=== PATIENT | male | born 1930 | race Caucasian/White ===

== ENCOUNTER → 2016-08-03 | Outpatient (CLI) | payer MEDICARE ==
[~2016-08-03] MED LIST: ASPI81CH CHEW; Aspirin Chew PO; BUME1TAB26 PO; CEPH500C3 PO; CHLO50TA PO; CIPR250T52 PO; CRANCAP7 PO; CYAN100017 PO; D31000CA PO; DOCU1CAP39 PO; FURO40TA PO; LUTE1CAP PO; METO25TA3 PO; PERC5TAB12 PO; POTA-163 PO; POTA-243 PO; POTA10CA PO; RIVA20 PO; TAMS0.4C4 PO; TAMS0.4C67 PO; THERM PO; VITA100021 SL; VITA100064 PO; XARE15TA PO
[2016-08-03 15:57] LABS: BICARBONATE 29.8 MEQ/L (21.0-32.0)
== END ==
LOC: CLAB 15:09
PROVIDERS: ATTEND Family Medicine
DX: E87.5 Hyperkalemia (principal)
CPT/HCPCS: 36415; 80048

== ENCOUNTER 2016-08-27 07:20 | Day surgery (SDC) | payer MEDICARE ==
[~2016-08-27] VITALS: Ht 180.3 cm; Wt 95.1 kg
[~2016-08-27 07:20] MED LIST changes: -ASPI81CH CHEW; -Aspirin Chew PO; -BUME1TAB26 PO; -CIPR250T52 PO; -DOCU1CAP39 PO; -FURO40TA PO; -METO25TA3 PO; -POTA-163 PO; -POTA10CA PO; -TAMS0.4C4 PO; -THERM PO; -VITA100021 SL; -VITA100064 PO; -XARE15TA PO
[2016-08-27] MEDS ORDERED: SODIUM CHLOR 0.9% 1000 ML INJ 1,000 ML IV SCH (08:00)
[2016-08-27 08:04] VITALS: BP 150/83; PULSE 102; RESP 18; TEMP 98.7; O2SAT 97
[2016-08-27] MEDS ORDERED: VITA100021 SL (08:07)
[2016-08-27] MEDS ORDERED: VITA100064 PO (08:07)
[2016-08-27] MEDS ORDERED: POTA10CA PO (08:07)
[2016-08-27] MEDS ORDERED: TAMS0.4C4 PO (08:07)
[2016-08-27] MEDS ORDERED: XARE15TA PO (08:07)
[2016-08-27] MEDS ORDERED: FURO40TA PO (08:07)
[2016-08-27 08:08] LABS: AUTOMATED NEUTROPHIL # 3.3 TH/MM3 (1.8-7.7); BASOPHIL % 0.2 % (0.0-2.0); EOSINOPHIL # 0.2 TH/MM3 (0-0.4); HEMATOCRIT 39.5 % (39.0-51.0); LYMPH % 52.7 % (9.0-44.0); LYMPHOCYTE # 4.3 TH/MM3 (1.0-4.8); MEAN CELL VOLUME 86.1 FL (80.0-100.0); MEAN CORPUSCULAR HEMOGLOBIN 30.4 PG (27.0-34.0); MEAN CORPUSCULAR HGB CONC 35.3 % (32.0-36.0); MONO % 4.7 % (0.0-8.0); NEUT % 40.4 % (16.0-70.0); PLATELET COUNT 126 TH/MM3 (150-450); RED BLOOD COUNT 4.58 MIL/MM3 (4.50-5.90); WHITE BLOOD COUNT 8.1 TH/MM3 (4.0-11.0)
[2016-08-27 08:09] LABS: HEMO FLAGS AUTO DIFF
[2016-08-27 08:15] LABS: PROTHROMBIN TIME - PATIENT 10.8 SEC (9.8-11.6)
[2016-08-27 08:24] LABS: BICARBONATE 30.7 MEQ/L (21.0-32.0); POTASSIUM 3.6 MEQ/L (3.5-5.1)
[2016-08-27 08:51] LABS: PLATELET ESTIMATE SMEAR LOW (NORMAL); PLATELET MORPHOLOGY NORMAL (NORMAL); SCAN/DIFF AUTO DIFF CONFIRMED
[2016-08-27] MEDS ORDERED: HEPARIN SODIUM - IV 10,000 UNITS/10 ML VIAL ONE (10:09)
[2016-08-27] MEDS ORDERED: HEPARIN-NS/PF INJ 500 ML ONE (10:09)
[2016-08-27] MEDS ORDERED: MIDAZOLAM HCL 2 MG/2 ML VIAL ONE (10:09)
[2016-08-27] MEDS ORDERED: VERAPAMIL HCL 5 MG/2 ML VIAL ONE (10:19)
[2016-08-27] MEDS ORDERED: NITROGLYCERIN INJ 5 ML ONE (10:19)
[2016-08-27] MEDS ORDERED: ADENOSINE STRESS TEST INJ 90 MG/30 ML VIAL ONE (11:30)
[2016-08-27] MEDS ORDERED: SODIUM CHLOR 0.9% 250 ML INJ 250 ML IV PRN (12:30)
[2016-08-27] MEDS ORDERED: ONDANSETRON HCL 4 MG/2 ML VIAL IV PRN (12:30)
[2016-08-27] MEDS ORDERED: SODIUM CHLORIDE 0.9% FLUSH 5 ML FLUSH IVF PRN ×2 (12:30)
[2016-08-27] MEDS ORDERED: MISC INFORMATION XX ONE ×2 (12:30)
[2016-08-27] MEDS ORDERED: ATROPINE SULFATE 1 MG/ML VIAL IV PRN (12:30)
[2016-08-27] MEDS ORDERED: IOHEXOL 350 MG/ML 50 ML BTL (for Cath Lab) OTHER ONE (12:52)
[2016-08-27] MEDS ORDERED: IOHEXOL 350 MG/ML 100 ML BTL (for Cath Lab) OTHER ONE (12:52)
[2016-08-27] MEDS ORDERED: hydrALAZINE HCL 20 MG/ML VIAL ONE (14:06)
--- NOTE | 2016-08-27 15:50 | MB ---
cc: TIERRA FRENCH DATE OF CONSULTATION: 08/27/2016 DATE OF : 1930 HISTORY OF PRESENT ILLNESS An 85-year-old male. Primary care physician Dr. Greenfield and productivity engineer Dr. Burrell. He has a history of aortic regurgitation and aortic stenosis. He has been having shortness of breath with exertion for the past one month, started retaining some fluid and having some lower extremity edema and worsening dyspnea. Denied having any chest pain. No palpitations. No syncope. No presyncope. He underwent an echocardiogram which showed a valve area 0.82, peak gradient of 52, EF 55%. He underwent cardiac cath today by Dr. Soto which showed 30% left main, 30% proximal LAD, 50% mid distal LAD, diagonal 10%, circumflex 10%, OM 70%, RCA 20%. RA pressure 12, RV pressure 29/8. PA pressure 25/17 with a wedge of 17. We were consulted to evaluate for aortic valve replacement. PAST MEDICAL HISTORY 1. Aortic regurgitation. 2. Aortic stenosis. 3. Atrial flutter. 4. History of AV block complete in 2013. 5. The patient had a biventricular ICD placed in 2013. 6. Chronic kidney disease, stage III. 7. Hypertension. 8. Paroxysmal SVT. 9. Benign prostatic hypertrophy. PAST SURGICAL HISTORY 1. Ablation of atrial flutter. 2. Cataract surgery. 3. Pacer in situ 2013. 4. Left shoulder repair. ALLERGIES No known allergies. MEDICATIONS Home meds include: 1. Lasix 40 mg daily. 2. Potassium 10 mEq daily. 3. Flomax. 4. Xarelto 15 mg p.o. daily. REVIEW OF SYSTEMS GENERAL: In general no night sweats, fever, heat or cold intolerance. SKIN: No psoriasis, itching or hives. HEENT: No blurred vision or hearing loss. RESPIRATORY: Positive for shortness of breath, occasional cough. CARDIOVASCULAR: As above in the HPI. GASTROINTESTINAL: No diarrhea or vomiting. GENITOURINARY: No burning, frequency, urgency. SHEARER HELPER: No history of TIA, CVA, seizure disorder. ENDOCRINE: No diabetes and/or hypothyroidism. PHYSICAL EXAMINATION VITAL SIGNS: Blood pressure 150/83, heart rate 100, afebrile. GENERAL: The patient is awake, alert, in no acute distress. HEENT: Head is normocephalic, atraumatic. Pupils equal and reactive. Oral mucosa is pink and moist. NECK: Supple. No JVD. HEART: Heart sounds S1, S2, grade 3/6 systolic murmur best noted at the left sternal border. LUNGS: Clear to auscultation. No wheezes, rales or rhonchi. ABDOMEN: Obese, soft, nontender. No masses or organomegaly. EXTREMITIES: Trace edema. LABORATORY DATA Hemoglobin 13, hematocrit 39, white cell count 8.1, platelet count 126. Sodium 141, potassium 3.6, BUN 21, creatinine 1.54. INR is 1.0. EKG DATA EKG is 100% V-paced. IMPRESSION This is an 85-year-old male with a history of aortic regurgitation, aortic stenosis, with symptoms including severe dyspnea with aortic valve area of 1.29. At this time the cath films have been reviewed by Dr. Tierra French. PLAN The plan will be for mini aortic valve replacement, right thoracotomy approach on Thursday September 01, 2016. The procedures, alternatives and risks have been discussed with the patient. He is agreeable to proceed. Further testing to be done including soft tissue arterial ultrasound of the left groin for possible cannulation and carotid ultrasound. Dictated by: MORGAN Johnson-Di MD CIERA Edwards/HUNG /3:19 PM /3:48 PM
--- NOTE | 2016-08-27 15:58 | RADRPT ---
EXAM DATE/TIME: 08/27/2016 15:09 [facility] COMPARISON: No previous studies available for comparison. INDICATIONS : Pre op surgery. MEDICAL HISTORY : Renal calculi. Hypertension. Hearing loss. Irregular heartbeat. Enlarged pros cohen. Measles. SURGICAL HISTORY : Pacemaker. Bilateral cataract removal. ENCOUNTER: Initial ACUITY: 1 day PAIN SCORE: 0/10 LOCATION: Bilateral neck PEAK SYSTOLIC VELOCITIES (cm/sec): ICA/CCA RATIO: Right: 1.2 Left: 0.8 ICA: Right: 119 Left: 92 CCA: Right: 96 Left: 119 ECA: Right: 159 Left: 89 VERTEBRAL: Right: 51 antegrade Left: 66 antegrade Elevated flow velocities and ICA/CCA ratios have been found to correlate with increased degrees of vessel stenosis, calculated as percentage of diameter relative to a normal segment of distal ICA/CCA FINDINGS: RIGHT CAROTID: No significant stenosis is visualized. The waveforms are within normal limits. LEFT CAROTID: No significant stenosis is visualized. The waveforms are within normal limits. VERTEBRAL ARTERIES: Antegrade flow is seen in both vertebral arteries. MISCELLANEOUS: None. CONCLUSION: Negative for hemodynamically significant stenosis. Marky Cutler MD FACR on August 27, 2016 at 15:55 Board Certified Radiologist. This report was verified electronically.
[2016-08-27 17:29] LABS: BLOOD, URINE NEG (NEG); GLUCOSE,URINE NEG (NEG); KETONE, URINE NEG (NEG); NITRITE,URINE NEG (NEG); URINE COLOR LIGHT-YELLOW (YELLW/STRAW)
[2016-08-27 17:33] LABS: COMMENT (UR) CULT NOT INDICATED; CULTURE IF INDICATED CULT NOT INDICATED
--- NOTE | 2016-08-27 17:53 | RADRPT ---
EXAM DATE/TIME: 08/27/2016 14:47 [place] Corrected on: September 01, 2016; Corrected header [facility] COMPARISON: No previous studies available for comparison. INDICATIONS : Pre op surgery. MEDICAL HISTORY : Renal calculi. Hypertension. Hearing loss. Irregular heartbeat. Enlarged pros cohen. Measles. SURGICAL HISTORY : Pacemaker. Left shoulder surgery. Bilateral cataract removal. ENCOUNTER: Initial ACUITY: 1 day PAIN SCORE: 0/10 LOCATION: Left leg. Peak Systolic Velocities: cm/sec External Iliac Artery Left 119 Triphasic FOOD TECHNOLOGY TEACHER Left 115 Triphasic Proximal SFA Left 109 Triphasic Mid SFA Left 94 Triphasic Distal SFA Left 145 Triphasic Profunda Femoral Artery Left 81 Triphasic Popliteal Artery Left 99 Triphasic FINDINGS: Ultrasound was performed to evaluate the common femoral artery on the left prior to cannulization. Common femoral artery on the left measures 1 cm. there is good arterial flow in this vessel. Distal arterial flow is intact. CONCLUSION: 1 cm left common femoral artery with good flow. Marky Cutler MD FACR on August 27, 2016 at 17:48 Board Certified Radiologist. Board Certified Radiologist. This report was verified electronically.
--- NOTE | 2016-08-27 20:55 | RADRPT ---
EXAM DATE/TIME: 08/27/2016 20:16 [facility] COMPARISON: No previous studies available for comparison. INDICATIONS : Status-post cardiac catheterization. RADIATION DOSE: 9.18 CTDIvol (mGy) MEDICAL HISTORY : Hypertension. SURGICAL HISTORY : Pacemaker. ENCOUNTER: Initial ACUITY: 1 day PAIN SCALE: 0/10 LOCATION: chest TECHNIQUE: Volumetric scanning of the chest was performed. Using automated exposure control and adjustment of t he mA and/or kV according to patient size, radiation dose was kept as low as reasonably achievable to obtain optimal diagnostic quality images. FINDINGS: LUNGS: There is no consolidation or pneumothorax. No concerning pulmonary nodule is visualized. PLEURAE: There is no pleural thickening or pleural effusion. MEDIASTINUM: The heart and great vessels demonstrate no acute abnormality. There is no mediastinal or hilar lymph adenopathy. Calcified aortic valve is noted. There is no evidence of pericardial effusion. Pacemaker is noted in place. AXILLAE: Within normal limits. No lymphadenopathy. MUSCULOSKELETAL: Within normal limits for patient age. MISCELLANEOUS: The visualized upper abdominal organs demonstrate no acute abnormality. CONCLUSION: No evidence of acute process. Calcific aortic valvular disease. Pacemaker in place. Cole Webber MD on August 27, 2016 at 20:51 Board Certified Radiologist. This report was verified electronically.
[2016-08-27] MEDS ORDERED: SODIUM CHLORIDE 0.9% FLUSH 5 ML FLUSH IVF SCH ×2 (21:00)
--- NOTE | 2016-08-27 22:49 | EKG ---
Date Performed: 08/27/2016 Time Performed: 08:17:16 PTAGE: 85 years EKG: Demand pacing Pacemaker rhythm - no further analysis Abnormal ECG PREVIOUS TRACING : 05/16/2014 07.18 DOCTOR: Jyoti Cruz Interpretating Date/Time 08/27/2016 22:48:43
--- NOTE | 2016-08-29 14:26 | MA ---
cc: DAVIDSON MURRAY DO DATE: August 27, 2016 PROCEDURE Left heart catheterization, right heart catheterization, coronary angiogram, ultrasound-guided venous access, IVUS left main. PREPROCEDURE DIAGNOSIS Moderate to severe aortic stenosis, shortness of breath consistent with severe aortic stenosis. POSTPROCEDURE DIAGNOSIS Severe aortic stenosis, moderate coronary artery disease. MEDICATIONS Fentanyl 25 mcg, Versed 1/2 mg, Verapamil 2.5 mg, Nitro 200 mcg, heparin 8000 units. CONTRAST USED 110 ccs. FLUOROSCOPY 22.4 minutes. SEDATION Moderate sedation x 60 minutes. ESTIMATED BLOOD LOSS 10 ccs. PROCEDURAL SUMMARY Gordon Abdi is a pleasant 85-year-old male who originally presented with increasing shortness of breath. Echocardiogram was done showing moderate to severe aortic stenosis. Because of this and consideration of possible AVR, it was felt that he needed to undergo coronary angiogram. Risks, benefits and alternatives were explained to him and his and they understood and consented. He was brought to the lab and prepped in the usual sterile fashion. Right radial artery was accessed using a modified Seldinger technique and placement of a 5/6 slender sheath. Right brachial vein was accessed using a modified Seldinger technique with ultrasound guidance and placement of a 5/6 slender sheath. Both sheaths were aspirated and flushed with these. Dewitt-Josh catheter was then placed through the venous sheath and taken to a wedge position. Pressures and oxygen saturations were measured in the usual fashion and with pressures listed below. Dewitt-Josh catheter was then removed. A JR-4 was advanced over a J-wire to the mid forearm. During this because of tortuosity we are unable to advance further. A Glidewire was used to advance the catheter to the ascending aortic root but due to tortuosity throughout the brachiocephalic artery and aortic arch, I was unable to torque the catheter to engage the coronary arteries. Because of this I felt that we should abandon the radial approach and opt for the femoral approach. JR-4 was then removed. Right femoral artery was accessed using a modified Seldinger technique. Right femoral arteriography shows a normal-appearing femoral artery with mild calcification. The JR-4 was then advanced over a J-wire to the ascending aorta. This was used for selective angiography of the right coronary artery which shows mild tortuosity and a 20% mid lesion. PDA appears to have a 40% ostial lesion. At that point I attempted with a JR-4 to cross the aortic valve with a J-wire but was unable to. This was then exchanged for a straight wire but this also was not able to cross the aortic valve. JR-4 was then exchanged for a JL-4 for selective angiography of the left coronary system. Left main does have mild disease in the proximal portion with a 20-30% lesion. The distal portion of the left main in one view does look close to 50% with calcification. Left main bifurcates into an LAD and left circumflex. The LAD has mild disease throughout with a 40-50% lesion in the midportion. It does give off one major diagonal. The left circumflex is a relatively normal-appearing vessel and gives off two major obtuse marginals. The second obtuse marginal which is a large vessel does have a 70% lesion after a bifurcation into an upper and lower branch. JL-4 was then exchanged for an AL-1. I attempted to cross the aortic valve with a straight wire but was unable to. This was then removed and a Glidewire was placed which was able to cross the aortic valve. The AL-1 catheter was then advanced into the left ventricular cavity. A long J-wire was then placed into the LV and the AL-1 was removed. A Celso dual lumen catheter was then advanced into the left ventricle. Both lumens were aspirated and flushed. Pressures from the left ventricle simultaneous with aorta were measured with hemodynamics below. This was then pulled back across the aortic valve to show that the pressures equalized. Celso catheter was then exchanged for an EBU 3.5 guide catheter. This was used to engage the left main as there was concern for distal left main disease. The patient was given heparin for anticoagulation. A BMW wire was advanced into the distal LAD. IVUS catheter was then taken into the proximal part of the LAD and pullback with recording. The minimal luminal area for the left main was found to be 8 mm squared. IVUS catheter was then removed. BMW wire was removed. One final shot of the left coronary system was taken to show no disruption of the vessel. EBU catheter was then removed over a J-wire. Right femoral sheath was sutured in with a plan to remove after ACTs were at appropriate level. TR band was placed over the radial arteriotomy site with removal of the sheath and hemostasis obtained. The patient left the laboratory tech cardiovascularly stable. HEMODYNAMICS Right atrium 12. Right ventricle 29/8, RVEDP 12. PA 25/17, mean 20. Wedge 17. LV 177/14, LVEDP 19. AO 155/56. Aortic valve mean gradient 39.35. The aortic valve area 1.29. Aortic valve index 0.60. IMPRESSION 1. Severe aortic stenosis by cardiac catheterization (mean gradient 40, aortic valve area of 1.2, aortic valve index 0.60). 2. Moderate coronary artery disease as above. RECOMMENDATIONS 1. Mr. Abdi presented to the office with symptoms concerning for progression of his aortic stenosis. He does appear to have severe aortic stenosis by cardiac catheterization with a mean gradient of 40. 2. I discussed this with Dr. French and he will see him in consultation for consideration of AVR. 3. It does not appear that he has significant coronary artery disease that needs to be bypassed during the procedure. 4. Further recommendations will be made after consultation with CT surgery. Thank you for allowing me to see Gordon Abdi, if there are any questions please do not hesitate to call. Davidson Murray DO VGP/TLL /12:28 PM /2:02 PM
--- NOTE | 2016-08-31 10:31 | RSPPFT ---
DATE OF PROCEDURE: 08/27/16 COMMENTS: Spirometry with FVC of 1.9 predicted 3.8, FEV1 of 1.5 predicted 2.9, FEV1/FVC ratio at 77% predicted 76%. IMPRESSION: On the basis of the above, patient has a restrictive lung defect. Lung volumes would be necessary for further clarification if clinically indicated.
--- NOTE | 2016-09-06 14:12 | RADRPT ---
EXAM DATE/TIME: 08/27/2016 14:47 [place] Corrected on: September 01, 2016; Corrected header [facility] COMPARISON: No previous studies available for comparison. INDICATIONS : Pre op surgery. MEDICAL HISTORY : Renal calculi. Hypertension. Hearing loss. Irregular heartbeat. Enlarged pros cohen. Measles. SURGICAL HISTORY : Pacemaker. Left shoulder surgery. Bilateral cataract removal. ENCOUNTER: Initial ACUITY: 1 day PAIN SCORE: 0/10 LOCATION: Left leg. Peak Systolic Velocities: cm/sec External Iliac Artery Left 119 Triphasic INFORMATION SPECIALIST Left 115 Triphasic Proximal SFA Left 109 Triphasic Mid SFA Left 94 Triphasic Distal SFA Left 145 Triphasic Profunda Femoral Artery Left 81 Triphasic Popliteal Artery Left 99 Triphasic FINDINGS: Ultrasound was performed to evaluate the common femoral artery on the left prior to cannulization. Common femoral artery on the left measures 1 cm. there is good arterial flow in this vessel. Distal arterial flow is intact. CONCLUSION: 1 cm left common femoral artery with good flow. Marky Cutler MD FACR on August 27, 2016 at 17:48 Board Certified Radiologist. Board Certified Radiologist. This report was verified electronically.
== END 2016-08-27 21:10 | disposition home or self-care (01) ==
LOC: HDOC 07:20 → HDIC 07:22 → HDOC 21:10
PROVIDERS: ATTEND Nuclear Medicine Nuclear Cardiology
DX: I35.0 Nonrheumatic aortic (valve) stenosis (principal); I35.1 Nonrheumatic aortic (valve) insufficiency; I48.92 Unspecified atrial flutter; Z95.810 Presence of automatic (implantable) cardiac defibrillator; I12.9 Hypertensive chronic kidney disease with stage 1 through stage 4 chronic kidney disease, or unspecified chronic kidney disease; N18.3 Chronic kidney disease, stage 3 (moderate); I47.1 Supraventricular tachycardia; I25.10 Atherosclerotic heart disease of native coronary artery without angina pectoris
CPT/HCPCS: 71250; 80048; 81001; 82810; 85025; 85347; 85610; 87641; 92978; 93005; 93456; 93880; 93926; 94010; C1751; C1753; C1769; C1893; J0360; J1644; J2250; J3010; 76999; J0153; Q9967

== ENCOUNTER 2016-08-31 11:15 | Inpatient (IN) | payer MEDICARE ==
[~2016-08-31] VITALS: Ht 177.8 cm; Wt 94.7 kg
[~2016-08-31 11:15] MED LIST changes: -CEPH500C3 PO; -CHLO50TA PO; -CRANCAP7 PO; -CYAN100017 PO; -D31000CA PO; +FURO40TA PO; -LUTE1CAP PO; -PERC5TAB12 PO; -POTA-243 PO; +POTA10CA PO; -RIVA20 PO; +TAMS0.4C4 PO; -TAMS0.4C67 PO; +VITA100021 SL; +VITA100064 PO; +XARE15TA PO
[2016-09-01] MEDS ORDERED: CEFAZOLIN 500 MG in NS IRR BTL 500 ML IRRIGATION SCH (06:15)
[2016-09-01] MEDS ORDERED: CHLORHEXIDINE GLUCONATE 4% SOLN 120 ML BTL TOPICAL SCH (06:15)
[2016-09-01] MEDS ORDERED: SODIUM CHLORIDE 0.9% FLUSH 5 ML FLUSH IV FLUSH PRN (06:15)
[2016-09-01] MEDS ORDERED: ceFAZolin 2 GM PREMIX 50 ML IV SCH (06:15)
[2016-09-01] MEDS ORDERED: METOPROLOL TARTRATE 25 MG TAB PO SCH (06:15)
[2016-09-01] MEDS ORDERED: INSULIN REGULAR 100 UNITS in NS 100 ML IV SCH (06:15)
[2016-09-01] MEDS ORDERED: LACTATED RINGER'S 1000 ML IV SCH (06:30)
[2016-09-01] MEDS ORDERED: INSULIN HUMAN REGULAR 1,000 UNITS/10 ML VIAL SQ PRN (06:30)
[2016-09-01] MEDS ORDERED: SODIUM CHLORID 0.9% 500 ML IV SCH (06:30)
[2016-09-01] MEDS ORDERED: METOPROLOL TARTRATE 25 MG TAB PO PRN (06:30)
[2016-09-01] MEDS ORDERED: VANCOMYCIN HCL 1000 MG VIAL ONE (06:36)
[2016-09-01] MEDS ORDERED: HEPARIN SODIUM - SQ 10,000 UNITS/ML VIAL ONE (06:36)
[2016-09-01] MEDS ORDERED: methylPREDNISolone SOD SUCC 125 MG/2 ML VIAL ONE (06:37)
[2016-09-01] MEDS ORDERED: POTASSIUM CHLORIDE 20 MEQ/10 ML VIAL ONE (06:39)
[2016-09-01] MEDS ORDERED: CUSTODIOL HTK IRR SOLN 1,000 ML ONE (06:39)
[2016-09-01] MEDS ORDERED: ALBUMIN HUMAN 25% 12.5 GM/50 ML BAGP IV ONE (06:40)
[2016-09-01] MEDS ORDERED: SODIUM BICARBONATE 8.4% INJ 50 ML ONE (06:40)
[2016-09-01] MEDS ORDERED: MANNITOL INJ 50 ML ONE (06:40)
[2016-09-01] MEDS ORDERED: HEPARIN SODIUM - IV 10,000 UNITS/10 ML VIAL ONE (06:41)
[2016-09-01 06:45] VITALS: BP 153/69; PULSE 79; RESP 16; TEMP 97.8; O2SAT 99
[2016-09-01] MEDS ORDERED: SODIUM CHLORIDE 0.9% FLUSH 5 ML FLUSH IV FLUSH SCH (09:00)
== END 2016-09-01 07:35 | disposition home or self-care (01) | DRG 307 ==
LOC: HSDI 09-01 05:50
PROVIDERS: ADMIT Thoracic Surgery (Cardiothoracic Vascular Surgery); ATTEND Thoracic Surgery (Cardiothoracic Vascular Surgery)
DX: I35.0 Nonrheumatic aortic (valve) stenosis (principal); Z53.9 Procedure and treatment not carried out, unspecified reason
CPT/HCPCS: 86850; 86900; 86901; 86920; 99211; G0463; J0690; J1644; J2150; J2930; J3370; J3480; P9047

== ENCOUNTER 2016-09-08 11:08 | Inpatient (IN) | payer MEDICARE ==
[~2016-09-08] VITALS: Ht 177.8 cm; Wt 105.9 kg
[~2016-09-08 11:08] MED LIST changes: -ASPI81CH CHEW; -Aspirin Chew PO; -BUME1TAB26 PO; -CIPR250T52 PO; -DOCU1CAP39 PO; -METO25TA3 PO; -POTA-163 PO; -THERM PO
[2016-09-15] VITALS (13 sets, daily range): BP systolic 98–147; BP diastolic 41–74; PULSE 92–115; RESP 10–16; TEMP 97.5–99.6; O2SAT 95–99
[2016-09-15] MEDS ORDERED: DEXTROSE 5% IN WATER 100ML INJ 100 ML IV ONE (05:00)
[2016-09-15] MEDS ORDERED: HEPARIN SODIUM - SQ 10,000 UNITS/ML VIAL SQ ONE (05:00)
[2016-09-15] MEDS ORDERED: AMIODARONE HCL 150 MG/3 ML VIAL IV ONE (05:00)
[2016-09-15] MEDS ORDERED: PHENYLEPHRINE HCL 10 MG/ML VIAL IV ONE (05:00)
[2016-09-15] MEDS ORDERED: LABETALOL HCL 100 MG/20 ML VIAL IV ONE (05:00)
[2016-09-15] MEDS ORDERED: GLYCOPYRROLATE 0.2 MG/ML VIAL IV ONE (05:00)
[2016-09-15] MEDS ORDERED: PROTAMINE SULFATE 250 MG/25 ML VIAL IV ONE (05:00)
[2016-09-15] MEDS ORDERED: VECURONIUM BROMIDE 10 MG VIAL IV ONE (05:00)
[2016-09-15] MEDS ORDERED: NOREPINEPHRINE 4 MG/4 ML AMP IV ONE (05:00)
[2016-09-15] MEDS ORDERED: ceFAZolin INJ 1,000 MG VIAL IV ONE ×2 (05:00→12:20)
[2016-09-15] MEDS ORDERED: MAGNESIUM SULFATE 1000 MG/2 ML VIAL (PED) IV ONE (05:00)
[2016-09-15] MEDS ORDERED: CALCIUM CHLORIDE 10% SOLN 1 GRAM/10 ML SYR IV ONE (05:00)
[2016-09-15] MEDS ORDERED: AMINOCAPROIC ACID INJ 250 MG/ML 20 ML VIAL IV ONE (05:00)
[2016-09-15] MEDS ORDERED: ARTIFICIAL TEARS OPTH OINT 3.5 APPLIC/3.5 GM TUBO ONE (05:00)
[2016-09-15] MEDS ORDERED: SODIUM BICARBONATE 8.4% INJ 50 MEQ/50 ML SYR IV ONE (05:00)
[2016-09-15] MEDS ORDERED: VASOPRESSIN INJ 20 UNITS/ML VIAL IV ONE (05:00)
[2016-09-15] MEDS ORDERED: INSULIN REGULAR 100 UNITS in NS 100 ML IV SCH (06:15)
[2016-09-15] MEDS ORDERED: SODIUM CHLORIDE 0.9% FLUSH 10 ML FLUSH IV FLUSH PRN ×2 (06:15)
[2016-09-15] MEDS ORDERED: CHLORHEXIDINE GLUCONATE 4% SOLN 120 ML BTL TOPICAL SCH (06:15)
[2016-09-15] MEDS ORDERED: METOPROLOL TARTRATE 25 MG TAB PO PRN (06:30)
[2016-09-15] MEDS ORDERED: INSULIN HUMAN REGULAR 1,000 UNITS/10 ML VIAL SQ PRN (06:30)
[2016-09-15] MEDS ORDERED: SODIUM CHLORID 0.9% 500 ML IV SCH (06:30)
[2016-09-15] MEDS ORDERED: LACTATED RINGER'S 1000 ML IV SCH (06:30)
[2016-09-15] MEDS ORDERED: VANCOMYCIN HCL 1000 MG VIAL ONE (06:33)
[2016-09-15] MEDS ORDERED: HEPARIN SODIUM - SQ 10,000 UNITS/ML VIAL ONE (06:33)
[2016-09-15] MEDS ORDERED: ceFAZolin 2 GM PREMIX 50 ML ONE (06:33)
[2016-09-15] MEDS ORDERED: methylPREDNISolone SOD SUCC 125 MG/2 ML VIAL ONE (06:33)
[2016-09-15] MEDS ORDERED: SODIUM BICARBONATE 8.4% INJ 50 ML ONE (07:07)
[2016-09-15] MEDS ORDERED: CUSTODIOL HTK IRR SOLN 1,000 ML ONE (07:07)
[2016-09-15] MEDS ORDERED: HEPARIN SODIUM - IV 10,000 UNITS/10 ML VIAL ONE (07:08)
[2016-09-15] MEDS ORDERED: MANNITOL INJ 50 ML ONE (07:08)
[2016-09-15] MEDS ORDERED: CALCIUM CHLORIDE 10% SOLN 1 GRAM/10 ML SYR ONE (07:09)
[2016-09-15] MEDS ORDERED: POTASSIUM CHLORIDE 20 MEQ/10 ML VIAL ONE (07:09)
[2016-09-15] MEDS ORDERED: ALBUMIN HUMAN 25% 12.5 GM/50 ML BAGP IV ONE (07:10)
[2016-09-15] MEDS ORDERED: BUPIVACAINE HCL PF 0.5% 30 ML VIAL ONE (07:43)
[2016-09-15] MEDS ORDERED: LACTATED RINGER'S 1000 ML INJ 500 ML IV PRN (14:27)
[2016-09-15] MEDS ORDERED: ACETAMINOPHEN 650 MG SUPP RECTAL PRN (14:30)
[2016-09-15] MEDS ORDERED: METOPROLOL TARTRATE 5 MG/5 ML VIAL IV PUSH PRN (14:30)
[2016-09-15] MEDS ORDERED: Post-op Orders (for Pharmacy) MISC OTHER ONE (14:30)
[2016-09-15] MEDS ORDERED: hydrALAZINE HCL 20 MG/ML VIAL IV PRN (14:30)
[2016-09-15] MEDS ORDERED: MAGNESIUM SULFATE INJ 2 GM in SODIUM CHLORIDE 0.9% INJ 100 ML IV PRN ×4 (14:30)
[2016-09-15] MEDS ORDERED: POTASSIUM CHLOR 20 MEQ PREMIX 100 ML IV PRN ×3 (14:30)
[2016-09-15] MEDS ORDERED: CLEVIDIPINE INJ 50 ML IV SCH (14:30)
[2016-09-15] MEDS ORDERED: ACETAMINOPHEN 325 MG TAB PO PRN (14:30)
[2016-09-15] MEDS ORDERED: oxyCODONE/ACETAMINOPHEN 5 MG/325 MG TAB PO PRN (14:30)
[2016-09-15] MEDS ORDERED: DEXTROSE 50% IN WATER 50 ML VIAL(D50) IV PUSH PRN (14:30)
[2016-09-15] MEDS ORDERED: CALCIUM CHLORIDE INJ 1 GM in SODIUM CHLORIDE 0.9% INJ 100 ML IV PRN (14:30)
[2016-09-15] MEDS ORDERED: POTASSIUM CHLORIDE 20 MEQ CONTROLLED RELEASE TAB PO PRN ×2 (14:30)
[2016-09-15] MEDS ORDERED: ONDANSETRON HCL 4 MG/2 ML VIAL IV PUSH PRN (14:30)
[2016-09-15] MEDS ORDERED: CALCIUM CHLORIDE 10% 1 GRAM/10 ML VIAL IV PRN (14:30)
--- NOTE | 2016-09-15 14:47 | PD.OP ---
cc: Tierra French MD; CharlesDavidson Arenas DO Operative Report Date of Surgery: Sep 15, 2016 Preoperative Diagnosis: (1) Aortic stenosis (2) SOB (shortness of breath) on exertion Postoperative Diagnosis: same Procedure: Minimally invasive AVR with a 27 Stark Intuity tissue valve THONY Percutaneous access left femoral artery and vein with Perclose closure Anesthesia: Dr. Le Surgeon: Tierra French Property Management Intern(s): Eitan Alvarado MD Operation and Findings: The risks, benefits, complications, treatment options, and expected outcomes were discussed with the patient. The possibilities of reaction to medication, pulmonary aspiration, perforation of viscus, bleeding, recurrent infection, the need for additional procedures, failure to diagnose a condition, and creating a complication requiring transfusion or operation were discussed with the patient. The patient concurred with the proposed plan, giving informed consent. The site of surgery properly noted/marked. The patient was taken to Operating Room, identified as Gordon Abdi and the procedure verified as Minimally Invasive Aortic Valve Replacement. A Time Out was held and the above information confirmed. Standard monitoring lines and Montoya catheter were placed. General anesthesia was induced. The patient was prepped and draped in a sterile fashion. Percutaneous access of the left femoral artery and vein was performed with ultrasound guidance using 2 Perclose devices for later closure on the artery. A simple horizontal mattress stitch was placed for later vein closure. The patient was heparinized for cardiopulmonary bypass. The left femoral artery was cannulated with a 19 [employer] arterial cannula. The left femoral vein was cannulated with a 21 [employer] cannula under THONY guidance. A 6 cm right anterior thoracotomy was performed and the 3rd rib was shingled. The right internal mammary artery and vein were ligated and divided. An Asif retractor was placed followed by a small chest retractor. The pericardium was opened and a pericardial sling was created using interrupted 0 silk sutures. A small 1 cm incision was made at the 6th intercostal space and an LV vent and pericardial suction were placed through this access port. The aorta was dissected posteriorly for crossclamp placement. Antegrade Custodiol cardioplegia were employed. Additionally, hand-held coronary cardioplegia cannula was used during the procedure. The patient was placed on cardiopulmonary bypass. An aortic cross-clamp was applied and the heart was arrested using cold Custodiol cardioplegia delivered through a 14F catheter. The aorta was opened above the sinotubular ridge and the aortic valve was exposed. The right and left coronary was directly cannulated in addition and cardioplegia was administered. On opening the aorta, the valve appeared calcified and trileaflet. The valve was resected as well as all annular calcification, sized for a 27 Intuity tissue valve which was placed with 2-0 Tycron stay sutures. The valve seated well and was balloon deployed. The three valve sutures were secured with core knot device. The aorta was closed with running 4-0 Prolene suture. The patient systemically Re warmed. The heart was vigorously deaired with a clamp on. The clamp was removed, deairing continued. The patient was easily weaned from cardiopulmonary bypass. Decannulation was carried out without incident and the femoral artery ws closed by securing the Perclose devices. The femoral vein was secured with manual pressure. Protamine was given. There was no adverse reaction. Intraoperative THONY following the procedure showed a well-seated aortic valve with a tiny perivalvular leak and preserved ventricular function. Wound was checked for hemostasis was obtained using electrocautery. The 3rd rib was reapproximated to the sternum and adjacent rib with a 0 Vicryl suture. The fascia and pectoralis were closed with 0 Vicryl. The subcutaneous tissue was closed using a running 3-0 Monocryl suture. The skin was closed with 4-0 Monocryl. The groin was closed in 2 layers. Sterile dressings were placed. At the end of the operation, all sponge, instruments, and needle counts were correct. The patient was transferred to the CVICU in stable condition. Tierra French MD Sep 15, 2016 14:47
[2016-09-15] MEDS ORDERED: MIDAZOLAM HCL 5 MG/5 ML VIAL ONE (14:55)
[2016-09-15] MEDS ORDERED: fentaNYL CITRATE 1000 MCG/20 ML VIAL ONE (14:56)
[2016-09-15] MEDS ORDERED: SODIUM CHLOR 0.9% 250 ML INJ 500 ML IV ONE (15:11)
[2016-09-15] MEDS ORDERED: SODIUM CHLORIDE 0.9% INJ 200 ML IV ONE (15:11)
[2016-09-15] MEDS ORDERED: NORMOSOL R INJ 2,000 ML IV ONE (15:11)
[2016-09-15] MEDS ORDERED: LACTATED RINGER'S 1000 ML INJ 2,000 ML IV ONE (15:11)
[2016-09-15] MEDS ORDERED: SODIUM CHLORID 0.9% 500 ML INJ 500 ML IV ONE (15:11)
--- NOTE | 2016-09-15 15:25 | RADRPT ---
EXAM DATE/TIME: 09/15/2016 14:41 [facility] COMPARISON: CHEST SINGLE AP, May 16, 2014, 10:46. INDICATIONS : Post CABG. MEDICAL HISTORY : Hypertension. SURGICAL HISTORY : Pacemaker. ENCOUNTER: Subsequent ACUITY: 1 day PAIN SCORE: Non-responsive. LOCATION: Bilateral chest FINDINGS: A single view of the chest demonstrates hypoinflation with no acute infiltrate. This appears to be pr ominent but well compensated. Right-sided thoracostomy tube without pneumothorax. Endotracheal tube i s identified above the anastacia. Nasogastric tube traverses the GE junction with the tip in the gastric lumen. Right IJ central venous catheter with tip projecting over the central venous system. Left sub clavian bipolar pacer is radiographically intact. CONCLUSION: 1. Hypoinflation with no acute infiltrate. 2. Right-sided thoracostomy tube without pneumothorax. 3. Endotracheal tube appropriately positioned above the anastacia the nasogastric tube entering the edson aparna lumen. 4. Compensated cardiomegaly. Wesley Dotson MD on September 15, 2016 at 15:21 Board Certified Radiologist. This report was verified electronically.
[2016-09-15] MEDS ORDERED: RESP: ALBUTEROL 2.5 MG/IPRATROPIUM 0.5 MG NEB (PRN) NEB (15:30)
[2016-09-15] MEDS ORDERED: RESP: RACEPINEPHRINE 2.25% 0.5 ML NEB NEB PRN (15:30)
[2016-09-15] MEDS ORDERED: NOREPINEPHRINE-DEXTROSE DRIP 250 ML IV SCH (16:00)
[2016-09-15] MEDS ORDERED: INSULIN REGULAR (IV INFUSION) 100 UNITS in SODIUM CHLORIDE 0.9% INJ 99 ML IV SCH (16:00)
[2016-09-15] MEDS: RESP: ALBUTEROL 2.5 MG/IPRATROPIUM 0.5 MG NEB (SCH) NEB ×2 (16:10→22:54)
[2016-09-15] MEDS: METOCLOPRAMIDE HCL 10 MG/2 ML VIAL IV PUSH SCH ×2 (17:28→21:27)
[2016-09-15] MEDS: ACETAMINOPHEN 1000 MG/100 ML VIAL IV SCH ×2 (17:29→22:27)
[2016-09-15] MEDS: ALBUMIN HUMAN 5% 12.5 GM/250 ML BOTTLE IV PRN ×2 (19:30→23:01)
[2016-09-15] MEDS: TAMSULOSIN HCL 0.4 MG CAP PO SCH (21:27)
[2016-09-16] VITALS (23 sets, daily range): BP systolic 90–151; BP diastolic 45–69; PULSE 58–116; RESP 16–24; TEMP 97.4–99; O2SAT 91–97
[2016-09-16] MEDS: RESP: ALBUTEROL 2.5 MG/IPRATROPIUM 0.5 MG NEB (SCH) NEB ×4 (03:54→19:03)
[2016-09-16] MEDS: ACETAMINOPHEN 1000 MG/100 ML VIAL IV SCH ×2 (05:01→09:28)
[2016-09-16 05:33] LABS: HEMATOCRIT 30.4 % (39.0-51.0); MEAN CELL VOLUME 86.9 FL (80.0-100.0); MEAN CORPUSCULAR HEMOGLOBIN 30.4 PG (27.0-34.0); PLATELET COUNT 76 TH/MM3 (150-450); RED CELL DISTRIBUTION WIDTH 14.1 % (11.6-17.2); WHITE BLOOD COUNT 17.9 TH/MM3 (4.0-11.0)
[2016-09-16 05:43] LABS: BICARBONATE 22.4 MEQ/L (21.0-32.0); MAGNESIUM 2.2 MG/DL (1.5-2.5); POTASSIUM 4.1 MEQ/L (3.5-5.1)
[2016-09-16 06:09] LABS: REVIEW FLAG FINAL
--- NOTE | 2016-09-16 06:10 | RADRPT ---
EXAM DATE/TIME: 09/16/2016 05:00 [facility] COMPARISON: CHEST SINGLE AP, September 15, 2016, 14:41. INDICATIONS : Shortness of breath, possible pulmonary disease. MEDICAL HISTORY : Hypertension. SURGICAL HISTORY : Pacemaker. ENCOUNTER: Subsequent ACUITY: 2 days PAIN SCORE: Non-responsive. LOCATION: Bilateral chest FINDINGS: Right jugular line and pacer device again seen. Cardiomegaly and shallow lung volumes. Degenerative c hanges of the spine. Clear lungs. Right-sided chest tube is noted. CONCLUSION: No significant change has occurred. Warren Almanza MD on September 16, 2016 at 6:08 Board Certified Radiologist. This report was verified electronically.
[2016-09-16] MEDS: PANTOPRAZOLE SOD 40 MG DELAYED RELEASE TAB PO SCH (06:38)
[2016-09-16] MEDS: METOCLOPRAMIDE HCL 10 MG/2 ML VIAL IV PUSH SCH (06:44)
[2016-09-16] MEDS: ASPIRIN 81 MG CHEW TAB PO SCH (08:07)
[2016-09-16] MEDS: TAMSULOSIN HCL 0.4 MG CAP PO SCH ×2 (08:07→18:47)
[2016-09-16] MEDS: CHOLECALCIFEROL (VIT D3) 1000 UNIT TAB PO SCH (08:07)
[2016-09-16] MEDS ORDERED: BUMETANIDE INJ 1 MG/4 ML VIAL IV PUSH ONE (08:45)
[2016-09-16] MEDS ORDERED: POTASSIUM CHLORIDE 20 MEQ CONTROLLED RELEASE TAB PO ONE (08:45)
[2016-09-16] MEDS ORDERED: GLUCAGON 1 MG/ML VIAL OTHER PRN (09:00)
[2016-09-16] MEDS ORDERED: METOPROLOL TARTRATE 25 MG TAB PO SCH ×2 (09:00)
[2016-09-16] MEDS ORDERED: BISACODYL 10 MG SUPP RECTAL PRN (09:00)
[2016-09-16] MEDS ORDERED: SOD PHOSPHATE/SOD BIPHOSPHATE (ADULT) ENEMA 133ML RECTAL PRN (09:00)
[2016-09-16] MEDS ORDERED: DEXTROSE 50% IN WATER 50 ML VIAL(D50) IV PRN (09:00)
[2016-09-16] MEDS: MULTIVITAMINS/MINERALS THERAPEUTIC TAB PO SCH (09:26)
[2016-09-16] MEDS: DOCUSATE SODIUM 100 MG CAP PO SCH ×2 (09:27→21:55)
[2016-09-16] MEDS: MAGNESIUM HYDROXIDE SUSP 30 ML CUP PO SCH (09:27)
[2016-09-16] MEDS: METOCLOPRAMIDE HCL 10 MG/2 ML VIAL IV SCH ×3 (09:27→21:53)
[2016-09-16] MEDS: INSULIN ASPART SUPPLEMENTAL SCALE SQ SCH ×4 (09:34→21:57)
[2016-09-16] MEDS ORDERED: PILL SPLITTER OTHER PRN (09:45)
--- NOTE | 2016-09-16 09:46 | PD.CAR.PN ---
CVT Progress Note CVT: POD #: 1 Subjective/Hospital Course: 86/ male HX of aortic stenosis, increasing SOB x one month lower ext edema , underwent cardiac cath by Dr Soto / found to have vlave area 0.82/ peak gradient 52/ EF 55% , mild CAD PMH: AI/ / aflutter on xarelto at home , BV ICD, CKD stage 111, HTN BPH surgery: 09/15 Minimally invasive AVR with a 27 Stark Intuity tissue valve THONY, Percutaneous access left femoral artery and vein with Perclose closure 09/16 +9 kg , 3000 crystalloid, 2 units PRBC, 500 cellsaver up in chair, still SOB with exertion CXR noted, atelectasis , volume overload gentle diuresis tachycardic this am, received dose of IV lopressor will start low dose BB plan to transfer to stepdown unit Objective: GENERAL: SKIN: Warm and dry./ dressing in place right upper chest/ chest tube x 2 / left groin with minimal oozing some ecchymosis HEAD: Normocephalic. EYES: No scleral icterus. No injection or drainage. NECK: Supple, trachea midline. No JVD or lymphadenopathy. CARDIOVASCULAR: irregular rhythm Regular rate and rhythm without murmurs, gallops, or rubs. / general edema RESPIRATORY: Breath sounds equal bilaterally. No accessory muscle use. GASTROINTESTINAL: Abdomen soft, non-tender, nondistended. MUSCULOSKELETAL: No cyanosis, or edema. BACK: Nontender without obvious deformity. No CVA tenderness. Vital Signs Date Time Temp Pulse Resp B/P Pulse Ox O2 Delivery O2 Flow Rate FiO2 09/16/16 09:15 98.4 98 16 151/69 96 Arterial Line 09/16/16 08:47 95 Nasal Cannula 3.00 09/16/16 07:00 96 Nasal Cannula 2.00 09/16/16 07:00 113 09/16/16 07:00 98.7 113 16 108/64 96 106/49 09/16/16 03:00 99.0 107 16 120/57 96 100/45 09/16/16 03:00 109 09/16/16 03:00 96 Nasal Cannula 4.00 09/15/16 23:00 96 Nasal Cannula 4.00 09/15/16 23:00 99.1 110 16 104/50 96 98/45 09/15/16 23:00 110 09/15/16 20:00 99.6 115 16 115/59 95 117/49 09/15/16 19:00 109 117/49 09/15/16 19:00 112 09/15/16 19:00 95 Nasal Cannula 4.00 09/15/16 19:00 98.3 109 16 95 107/53 09/15/16 18:08 96 Nasal Cannula 4.00 09/15/16 18:08 96 Nasal Cannula 4 09/15/16 16:23 97.5 98 10 113/41 99 112/59 09/15/16 16:22 99 09/15/16 16:05 98 40 09/15/16 15:48 98.2 09/15/16 15:30 50 09/15/16 15:13 98.5 09/15/16 14:51 95 55 09/15/16 14:40 93 09/15/16 14:40 55 09/15/16 14:32 97.9 92 10 102/50 99 106/54 Labs: Laboratory Tests Test 09/16/16 04:52 White Blood Count 17.9 TH/MM3 (4.0-11.0) Red Blood Count 3.50 MIL/MM3 (4.50-5.90) Hemoglobin 10.6 GM/DL (13.0-17.0) Hematocrit 30.4 % (39.0-51.0) Mean Corpuscular Volume 86.9 FL (80.0-100.0) Mean Corpuscular Hemoglobin 30.4 PG (27.0-34.0) Mean Corpuscular Hemoglobin 35.0 % Concent (32.0-36.0) Red Cell Distribution Width 14.1 % (11.6-17.2) Platelet Count 76 TH/MM3 (150-450) Mean Platelet Volume 9.9 FL (7.0-11.0) Sodium Level 146 MEQ/L (136-145) Potassium Level 4.1 MEQ/L (3.5-5.1) Chloride Level 111 MEQ/L (98-107) Carbon Dioxide Level 22.4 MEQ/L (21.0-32.0) Anion Gap 13 MEQ/L (5-15) Blood Urea Nitrogen 24 MG/DL (7-18) Creatinine 1.81 MG/DL (0.60-1.30) Estimat Glomerular Filtration 36 ML/MIN (>89) Rate Random Glucose 108 MG/DL (74-106) Calcium Level 8.3 MG/DL (8.5-10.1) Magnesium Level 2.2 MG/DL (1.5-2.5) Result Diagram: 09/16/1645109/16/16451 Telemetry: V paced (1) Aortic stenosis (2) S/P AVR (aortic valve replacement) Plan: ASA, start BB gentle diuresis aggressive pum toileting OOB ambulate (3) Chronic kidney disease Plan: avoid nephrotoxins, Monitor indices (4) aflutter Plan: resume xarelto when chest tubes out (5) Coronary artery disease Plan: ASA, BB statin (6) Hypertension Plan: controlled Corrie Otero Sep 16, 2016 09:46
--- NOTE | 2016-09-16 14:41 | EKG ---
Date Performed: 09/16/2016 Time Performed: 02:38:16 PTAGE: 86 years EKG: Ventricular pacing Pacemaker rhythm - no further analysis Abnormal ECG Compared to prior tr acing no significant change PREVIOUS TRACING 08/27/2016 08.17.16 DOCTOR: Winston Marshall Interpretating Date/Time 09/16/2016 14:38:42
[2016-09-16] MEDS: ATORVASTATIN 20 MG TAB PO SCH (21:53)
[2016-09-16] MEDS: SENNOSIDES 8.6 MG TAB PO SCH (21:55)
[2016-09-16] MEDS: METOPROLOL TARTRATE 25 MG TAB PO SCH (21:55)
[2016-09-17] VITALS (29 sets, daily range): BP systolic 112–130; BP diastolic 44–68; PULSE 50–114; RESP 20–24; TEMP 97.7–98.2; O2SAT 92–97
[2016-09-17] MEDS: INSULIN ASPART SUPPLEMENTAL SCALE SQ SCH ×5 (03:12→21:57)
[2016-09-17] MEDS: METOCLOPRAMIDE HCL 10 MG/2 ML VIAL IV SCH (03:13)
[2016-09-17] MEDS: PANTOPRAZOLE SOD 40 MG DELAYED RELEASE TAB PO SCH (06:14)
[2016-09-17 06:54] LABS: AUTOMATED NEUTROPHIL # 14.1 TH/MM3 (1.8-7.7); BASOPHIL % 0.2 % (0.0-2.0); HEMATOCRIT 29.7 % (39.0-51.0); LYMPH % 16.1 % (9.0-44.0); LYMPHOCYTE # 2.9 TH/MM3 (1.0-4.8); MEAN CORPUSCULAR HEMOGLOBIN 29.4 PG (27.0-34.0); MEAN CORPUSCULAR HGB CONC 33.4 % (32.0-36.0); MONO % 5.7 % (0.0-8.0); PLATELET COUNT 57 TH/MM3 (150-450); RED BLOOD COUNT 3.38 MIL/MM3 (4.50-5.90); RED CELL DISTRIBUTION WIDTH 14.5 % (11.6-17.2); WHITE BLOOD COUNT 18.1 TH/MM3 (4.0-11.0)
[2016-09-17 07:03] LABS: HEMO FLAGS AUTO DIFF
[2016-09-17] MEDS: RESP: ALBUTEROL 2.5 MG/IPRATROPIUM 0.5 MG NEB (SCH) NEB ×2 (07:20→19:58)
[2016-09-17 07:31] LABS: BICARBONATE 27.4 MEQ/L (21.0-32.0); MAGNESIUM 2.1 MG/DL (1.5-2.5)
[2016-09-17 08:11] LABS: BANDS 1 % (0-6); NEUTROPHIL # MANUAL DIFF 14.1 TH/MM3 (1.8-7.7); POLYS (SEG NEUTROPHILS) 77 % (16-70); WBC DIFF SAMPLE 100
[2016-09-17 08:14] LABS: PLATELET ESTIMATE SMEAR LOW (NORMAL); PLATELET MORPHOLOGY NORMAL (NORMAL); SCAN/DIFF FINAL DIFF MANUAL
[2016-09-17] MEDS: ASPIRIN 81 MG CHEW TAB PO SCH (09:00)
[2016-09-17] MEDS: METOPROLOL TARTRATE 25 MG TAB PO SCH ×2 (09:25→21:57)
[2016-09-17] MEDS: DOCUSATE SODIUM 100 MG CAP PO SCH ×2 (09:25→21:57)
[2016-09-17] MEDS: CHOLECALCIFEROL (VIT D3) 1000 UNIT TAB PO SCH (09:26)
[2016-09-17] MEDS: POLYETHYLENE GLYCOL 17 GM PKG PO SCH (09:26)
[2016-09-17] MEDS: TAMSULOSIN HCL 0.4 MG CAP PO SCH ×2 (09:26→18:13)
[2016-09-17] MEDS: MAGNESIUM HYDROXIDE SUSP 30 ML CUP PO SCH (09:26)
[2016-09-17] MEDS: MULTIVITAMINS/MINERALS THERAPEUTIC TAB PO SCH (09:26)
[2016-09-17] MEDS ORDERED: BUMETANIDE INJ 1 MG/4 ML VIAL IV PUSH ONE (10:00)
[2016-09-17] MEDS ORDERED: POTASSIUM CHLORIDE 10 MEQ CONTROLLED RELEASE TAB PO ONE (10:00)
[2016-09-17 12:25] LABS: BACTERIA, URINE FEW /hpf; BLOOD, URINE LARGE (NEG); COMMENT (UR) CATH-CULTURE IND; CULTURE IF INDICATED CATH CULTURE IND; GLUCOSE,URINE NEG (NEG); KETONE, URINE 10 mg/dL (NEG); MUCUS URINE FEW /lpf (OCC); NITRITE,URINE NEG (NEG); PH, URINE 5.5 (5.0-8.5); SQUAMOUS EPITHELIAL CELL URINE 1 /hpf (0-5); TRANSITIONAL EPI CELLS, URINE <1 /hpf
[2016-09-17 12:28] LABS: URINE COLOR LIGHT-RED (YELLW/STRAW)
--- NOTE | 2016-09-17 13:47 | RADRPT ---
EXAM DATE/TIME: 09/17/2016 11:02 [facility] COMPARISON: US CAROTID ARTERIES, August 27, 2016, 15:09. INDICATIONS : Left arm swelling. MEDICAL HISTORY : Hypertension. Renal calculi. Measles. Enlarged prostate. SURGICAL HISTORY : Pacemaker. Left shoulder surgery. ENCOUNTER: Initial ACUITY: 1 day PAIN SCORE: 0/10 LOCATION: Left arm. FINDINGS: The examination demonstrates thrombus evident within the distal basilic vein, throughout the brachial vein and within the axillary vein consistent with DVT. CONCLUSION: 1. Venous thrombosis as above. Johnnie Cutler MD on September 17, 2016 at 13:42 Board Certified Radiologist. This report was verified electronically.
--- NOTE | 2016-09-17 17:30 | PD.CAR.PN ---
CVT Progress Note CVT: POD #: 2 Subjective/Hospital Course: 86/ male HX of aortic stenosis, increasing SOB x one month lower ext edema , underwent cardiac cath by Dr Soto / found to have vlave area 0.82/ peak gradient 52/ EF 55% , mild CAD PMH: AI/ / aflutter on xarelto at home , BV ICD, CKD stage 111, HTN BPH surgery: 09/15 Minimally invasive AVR with a 27 Stark Intuity tissue valve THONY, Percutaneous access left femoral artery and vein with Perclose closure 09/16 +9 kg , 3000 crystalloid, 2 units PRBC, 500 cellsaver up in chair, still SOB with exertion CXR noted, atelectasis , volume overload gentle diuresis tachycardic this am, received dose of IV lopressor will start low dose BB plan to transfer to stepdown unit 09/17 worsening renal indices/ nephrology consulted EKG intermittent V paced/ afib + edema left arm > right / US + basilic and axillary DVT PLT 57/ check HIT panel, restart xarelto in am when chest tube out / + leukoestrase in urine/ + blood / await culture/ received post op antibiotics Objective: GENERAL: SKIN: Warm and dry./ incision intact and well approximated to chest / chest tube x 2 / no air leak HEAD: Normocephalic. EYES: No scleral icterus. No injection or drainage. NECK: Supple, trachea midline. No JVD or lymphadenopathy. CARDIOVASCULAR: irregular rate and rhythm + edema left arm and legs without murmurs, gallops, or rubs. RESPIRATORY: coarse bilateral breath sounds, few basilar crackles Breath sounds equal bilaterally. No accessory muscle use. GASTROINTESTINAL: obese / + bowel sounds Abdomen slighlty distended MUSCULOSKELETAL: No cyanosis, or edema. BACK: Nontender without obvious deformity. No CVA tenderness. Vital Signs Date Time Temp Pulse Resp B/P Pulse Ox O2 Delivery O2 Flow Rate FiO2 09/17/16 17:05 97.9 92 22 112/44 97 09/17/16 17:05 110 09/17/16 17:05 97 Nasal Cannula 2.00 09/17/16 16:12 84 09/17/16 15:15 85 09/17/16 14:21 113 09/17/16 13:02 105 09/17/16 12:14 70 09/17/16 11:56 94 Nasal Cannula 2.00 09/17/16 11:56 97.7 97 22 113/55 94 09/17/16 11:12 99 09/17/16 10:53 99 09/17/16 09:44 70 09/17/16 08:00 68 09/17/16 07:59 98.2 50 20 130/68 92 09/17/16 07:59 92 Room Air 09/17/16 07:24 97 Nasal Cannula 2.00 09/17/16 07:20 106 09/17/16 06:28 105 09/17/16 05:16 84 09/17/16 04:14 102 09/17/16 03:20 Nasal Cannula 2.50 09/17/16 03:20 98.0 88 24 127/63 93 09/17/16 03:20 105 09/17/16 02:01 100 09/17/16 01:06 96 09/17/16 01:00 114 09/17/16 00:41 98 09/16/16 23:10 98.4 66 24 138/66 96 09/16/16 23:10 Nasal Cannula 2.00 09/16/16 23:00 84 09/16/16 22:00 84 09/16/16 21:00 96 09/16/16 20:00 84 09/16/16 19:30 Nasal Cannula 2.00 09/16/16 19:03 92 Nasal Cannula 3.00 09/16/16 19:00 116 09/16/16 19:00 98.1 58 20 122/56 91 09/16/16 18:23 105 09/16/16 17:26 105 Labs: Laboratory Tests Test 09/17/16 09/17/16 06:10 10:30 White Blood Count 18.1 TH/MM3 (4.0-11.0) Red Blood Count 3.38 MIL/MM3 (4.50-5.90) Hemoglobin 9.9 GM/DL (13.0-17.0) Hematocrit 29.7 % (39.0-51.0) Mean Corpuscular Volume 88.0 FL (80.0-100.0) Mean Corpuscular Hemoglobin 29.4 PG (27.0-34.0) Mean Corpuscular Hemoglobin 33.4 % Concent (32.0-36.0) Red Cell Distribution Width 14.5 % (11.6-17.2) Platelet Count 57 TH/MM3 (150-450) Mean Platelet Volume 10.3 FL (7.0-11.0) Neutrophils (%) (Auto) 78.0 % (16.0-70.0) Lymphocytes (%) (Auto) 16.1 % (9.0-44.0) Monocytes (%) (Auto) 5.7 % (0.0-8.0) Eosinophils (%) (Auto) 0.0 % (0.0-4.0) Basophils (%) (Auto) 0.2 % (0.0-2.0) Neutrophils # (Auto) 14.1 TH/MM3 (1.8-7.7) Lymphocytes # (Auto) 2.9 TH/MM3 (1.0-4.8) Monocytes # (Auto) 1.0 TH/MM3 (0-0.9) Eosinophils # (Auto) 0.0 TH/MM3 (0-0.4) Basophils # (Auto) 0.0 TH/MM3 (0-0.2) CBC Comment AUTO DIFF Differential Total Cells 100 Counted Neutrophils % (Manual) 77 % (16-70) Band Neutrophils % 1 % (0-6) Lymphocytes % 22 % (9-44) Neutrophils # (Manual) 14.1 TH/MM3 (1.8-7.7) Differential Comment FINAL DIFF MANUAL Platelet Estimate LOW (NORMAL) Platelet Morphology Comment NORMAL (NORMAL) Red Cell Morphology Comment NORMAL (NORMAL) Sodium Level 142 MEQ/L (136-145) Potassium Level 4.0 MEQ/L (3.5-5.1) Chloride Level 106 MEQ/L (98-107) Carbon Dioxide Level 27.4 MEQ/L (21.0-32.0) Anion Gap 9 MEQ/L (5-15) Blood Urea Nitrogen 39 MG/DL (7-18) Creatinine 1.95 MG/DL (0.60-1.30) Estimat Glomerular Filtration 33 ML/MIN (>89) Rate Random Glucose 135 MG/DL (74-106) Calcium Level 8.3 MG/DL (8.5-10.1) Magnesium Level 2.1 MG/DL (1.5-2.5) Urine Color LIGHT-RED (YELLW/STRAW) Urine Turbidity CLOUDY (CLEAR) Urine pH 5.5 (5.0-8.5) Urine Specific [place] 1.028 (1.002-1.035) Urine Protein 300 mg/dL (NEG-TRACE) Urine Glucose (UA) NEG mg/dL (NEG) Urine Ketones 10 mg/dL (NEG) Urine Occult Blood LARGE (NEG) Urine Nitrite NEG (NEG) Urine Bilirubin NEG (NEG) Urine Urobilinogen LESS THAN 2.0 MG/DL (LESS THAN 2.0) Urine Leukocyte Esterase LARGE (NEG) Urine RBC /hpf (0-3) Urine WBC /hpf (0-5) Urine WBC Clumps OCC (NONE) Urine Squamous Epithelial 1 /hpf (0-5) Cells Urine Transitional Epithelial <1 /hpf (NONE) Cells Urine Bacteria FEW /hpf (NONE) Urine Mucus FEW /lpf (OCC) Urine Yeast (Budding) RARE (NONE) Microscopic Urinalysis Comment CATH-CULTURE IND Result Diagram: 09/17/1660909/17/1610 Telemetry: AFIB (1) Aortic stenosis (2) S/P AVR (aortic valve replacement) Plan: ASA, BB afib rate 100 gentle diuresis aggressive pum toileting OOB ambulate (3) Chronic kidney disease Plan: avoid nephrotoxins, Monitor indices worsening indices/ consult nephrology (4) aflutter Plan: resume xarelto when chest tubes out (5) Coronary artery disease Plan: ASA, BB statin (6) Hypertension Plan: controlled (7) DVT (deep venous thrombosis) Plan: start xarelto tomorrow , when chest tube out (8) Thrombocytopenia Plan: check HIT panel Corrie Otero Sep 17, 2016 17:30
[2016-09-17] MEDS: ATORVASTATIN 20 MG TAB PO SCH (21:57)
[2016-09-17] MEDS: SENNOSIDES 8.6 MG TAB PO SCH (21:57)
[2016-09-18] VITALS (27 sets, daily range): BP systolic 121–135; BP diastolic 42–72; PULSE 70–111; RESP 20–23; TEMP 97.7–98.3; O2SAT 94–97
--- NOTE | 2016-09-18 04:58 | RADRPT ---
EXAM DATE/TIME: 09/18/2016 03:47 [facility] COMPARISON: CHEST SINGLE AP, September 16, 2016, 5:00. INDICATIONS : Shortness of breath, possible pulmonary disease. MEDICAL HISTORY : Hypertension. SURGICAL HISTORY : Pacemaker. ENCOUNTER: Subsequent ACUITY: 3 days PAIN SCORE: Non-responsive. LOCATION: Bilateral chest FINDINGS: A single portable frontal view of the chest shows a left-sided pacing device, right-sided central katrina e, and right-sided thoracostomy tube. Low lung volumes noted. Crowding of the pulmonary vasculature. This limits the evaluation of the pulmonary vasculature. Heart is mildly enlarged but stable. Lungs a re clear without infiltrate or effusion. No pneumothorax. CONCLUSION: Hypoinflation. Mild cardiomegaly. Rad Waite Jr., MD on September 18, 2016 at 4:56 Board Certified Radiologist. This report was verified electronically.
[2016-09-18] MEDS: PANTOPRAZOLE SOD 40 MG DELAYED RELEASE TAB PO SCH (05:00)
[2016-09-18] MEDS: INSULIN ASPART SUPPLEMENTAL SCALE SQ SCH ×4 (05:00→21:00)
[2016-09-18 05:18] LABS: AUTOMATED NEUTROPHIL # 11.9 TH/MM3 (1.8-7.7); BASOPHIL % 0.1 % (0.0-2.0); HEMATOCRIT 27.8 % (39.0-51.0); LYMPH % 21.4 % (9.0-44.0); LYMPHOCYTE # 3.5 TH/MM3 (1.0-4.8); MEAN CORPUSCULAR HEMOGLOBIN 29.4 PG (27.0-34.0); MEAN CORPUSCULAR HGB CONC 33.4 % (32.0-36.0); MONO % 6.5 % (0.0-8.0); PLATELET COUNT 39 TH/MM3 (150-450); RED BLOOD COUNT 3.16 MIL/MM3 (4.50-5.90); RED CELL DISTRIBUTION WIDTH 14.4 % (11.6-17.2); WHITE BLOOD COUNT 16.5 TH/MM3 (4.0-11.0)
[2016-09-18 05:28] LABS: HEMO FLAGS AUTO DIFF
[2016-09-18 05:29] LABS: INTERNATIONAL NORMALIZED RATIO 1.1 RATIO
[2016-09-18 05:42] LABS: BICARBONATE 28.7 MEQ/L (21.0-32.0); POTASSIUM 3.7 MEQ/L (3.5-5.1)
[2016-09-18] MEDS: RESP: ALBUTEROL 2.5 MG/IPRATROPIUM 0.5 MG NEB (SCH) NEB (07:35)
[2016-09-18 08:36] LABS: TOTAL PROTEIN SPE 4.7 GM/DL (6.0-7.6)
--- NOTE | 2016-09-18 08:40 | MB ---
cc: JAMAL MARCELINO MD DATE OF CONSULTATION: 09/18/2016 REASON FOR CONSULTATION: Elevated BUN and creatinine for evaluation. HISTORY OF PRESENT ILLNESS This is a 86-year-old male with past medical history of. Ischemic heart disease, chronic kidney disease post aortic wall replacement. Aortic stenosis, atrial flutter. Hypertension, benign prostatic hypertrophy, who was admitted for aortic wall replacement. I was called to see the patient because of elevated BUN and creatinine. The patient has known history of chronic kidney disease, his baseline creatinine is around 1.5 and he was admitted on and his creatinine was 1.8 at that time. He underwent the surgery which was done on September 15. Minimally invasive aortic wall replacement. Postoperatively today the patient developed a urinary retention and Montoya catheter was inserted he has 500 cc's of urine came out after he was given one dose of Bumex at around close to 10:30 a.m. The patient is sitting in the chair. Denies any shortness of breath. No chest pain. 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 He denies any nausea or vomiting. He started taking liquids and some food, but he has no bowel movements so far. Currently he has Montoya catheter. PAST MEDICAL HISTORY: 1. Hypertension. 2. Ischemic heart disease 3. Aortic wall replacement 4. Aortic stenosis with regurgitation. 5. Atrial flutter 6. Chronic kidney disease 7. Prostatic hypertrophy. PAST SURGICAL HISTORY Ablation for atrial flutter just has the aortic valve replacement. History of cataract surgery Left shoulder repair. Pacemaker placement. REVIEW OF SYSTEMS Denies any headache, dizziness or blurring of vision. The patient has mild shortness of breath. He uses nasal cannula. There is no history of nausea or vomiting. Denies any abdominal pain, history of diarrhea. He has no bowel movement since the surgery but has been passing gas. He had difficulty in passing urine and had a Montoya catheter inserted this morning. He has past history of benign prostatic hypertrophy. ALLERGIES NO KNOWN DRUG ALLERGIES. CURRENT MEDICATIONS The patient has been on following medications 1. Colace 100 mg b.i.d. 2. Metoprolol 12.5 mg b.i.d. 3. Flomax 0.4 mg b.i.d. 4. Aspirin 81 mg once a day. 5. Vitamin D3 1,000 units once a day 6. Theragran 1 tablet daily 7. MiraLax 17 grams once a day. 8. Protonix 40 mg daily. 9. Senokot. 0.6 mg q.h.s. 10. Lipitor 40 mg q.h.s. 11. Dulcolax 1 dose. 12. Insulin sliding scale. 13. Zofran as needed. PHYSICAL EXAMINATION: IN GENERAL: On examination the patient is awake, alert. He is sitting in the chair, not in acute distress. VITAL SIGNS: Blood pressure 112/44 temperature 97.9, oxygen saturation of 2 liters at 97%. The lowest recorded blood pressure was 90/48 and he has this was yesterday afternoon. HEAD, EYES, EARS, NOSE, AND THROAT: Pupils equal, round, reactive to light, nonicteric sclera, conjunctiva pale. NECK: Supple. JVD is not elevated. LUNGS: The patient has bilateral decreased air entry with basilar rales and scattered wheezing. HEART: S1, S2, regular rhythm. ABDOMEN: Abdomen is distended, soft lax. There is no tenderness. EXTREMITIES: He has bilateral 2+ edema in the legs and some edema in the arms and also in the abdominal wall. INVESTIGATIONS: WBC count 18.1, hemoglobin 9.9, platelet count of 57, sodium 142. Potassium 4.0, chloride 106, bicarb 27.4, BUN 39, creatinine 1.9. Calcium 8.3. Magnesium 2.1. Urinalysis showing that he has protein of 300, INR was 1.0. IMAGING STUDIES The patient has ultrasound of the upper extremities done which shows venous thrombosis in the <<5:49>> vein. Chest x-ray was done yesterday which shows cardiomegaly and decreased lung volume otherwise lung harp clear. ASSESSMENT/PLAN 1. Chronic kidney disease with acute kidney injury 2. Post aortic wall replacement 3. Atrial flutter 4. Hypertension 5. History of deep vein thrombosis. 6. Thrombocytopenia. 7. Anemia. 8. 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 His hemoglobin is a lower side. I will check the serum protein electrophoresis. He has more fluid built the bed up at present he will need a diuretic. I will put him on Lasix and follow the urine output and the BUN and creatinine. I will also get ultrasound of the kidneys to see the renal size and echogenicity. Thank you for the consultation. Over the weekend the patient will be followed by Dr. Cotto MD ELIGIO Figueroa/stacy /6:22 PM /7:19 AM
[2016-09-18] MEDS: BISACODYL 10 MG SUPP RECTAL ONE ×2 (09:00→10:45)
[2016-09-18] MEDS: ASPIRIN 81 MG CHEW TAB PO SCH (09:00)
[2016-09-18] MEDS: METOPROLOL TARTRATE 25 MG TAB PO SCH ×2 (09:16→22:35)
[2016-09-18] MEDS: MULTIVITAMINS/MINERALS THERAPEUTIC TAB PO SCH (09:16)
[2016-09-18] MEDS: TAMSULOSIN HCL 0.4 MG CAP PO SCH ×2 (09:16→17:33)
[2016-09-18] MEDS: CHOLECALCIFEROL (VIT D3) 1000 UNIT TAB PO SCH (09:17)
[2016-09-18] MEDS: DOCUSATE SODIUM 100 MG CAP PO SCH ×2 (09:17→22:35)
[2016-09-18] MEDS: FUROSEMIDE 20 MG/2 ML VIAL IV PUSH SCH ×2 (09:17→17:34)
[2016-09-18] MEDS: POLYETHYLENE GLYCOL 17 GM PKG PO SCH (09:18)
[2016-09-18 10:00] LABS: PLATELET ESTIMATE SMEAR LOW (NORMAL); PLATELET MORPHOLOGY NORMAL (NORMAL); SCAN/DIFF AUTO DIFF CONFIRMED
--- NOTE | 2016-09-18 10:56 | PD.CAR.PN ---
CVT Progress Note CVT: POD #: 3 Subjective/Hospital Course: 86/ male HX of aortic stenosis, increasing SOB x one month lower ext edema , underwent cardiac cath by Dr Soto / found to have vlave area 0.82/ peak gradient 52/ EF 55% , mild CAD PMH: AI/ / aflutter on xarelto at home , BV ICD, CKD stage 111, HTN BPH surgery: 09/15 Minimally invasive AVR with a 27 Stark Intuity tissue valve THONY, Percutaneous access left femoral artery and vein with Perclose closure 09/16 +9 kg , 3000 crystalloid, 2 units PRBC, 500 cellsaver up in chair, still SOB with exertion CXR noted, atelectasis , volume overload gentle diuresis tachycardic this am, received dose of IV lopressor will start low dose BB plan to transfer to stepdown unit 09/17 worsening renal indices/ nephrology consulted EKG intermittent V paced/ afib + edema left arm > right / US + basilic and axillary DVT PLT 57/ check HIT panel, restart xarelto in am when chest tube out / + leukoestrase in urine/ + blood / await culture/ received post op antibiotics 09/18/16 Stable course with stable creatinine. c/o exertional dyspnea, but better than yesterday. No BM, + flatus Objective: Vital Signs Date Time Temp Pulse Resp B/P Pulse Ox O2 Delivery O2 Flow Rate FiO2 09/18/16 09:00 82 09/18/16 08:00 82 09/18/16 07:48 97.7 85 21 121/42 95 09/18/16 07:48 95 Nasal Cannula 2.00 09/18/16 07:37 95 Nasal Cannula 2.00 09/18/16 07:00 105 09/18/16 06:00 105 09/18/16 05:00 105 09/18/16 04:00 93 09/18/16 03:00 106 09/18/16 03:00 97.9 99 20 128/72 97 09/18/16 03:00 95 Nasal Cannula 2.00 09/18/16 02:00 104 09/18/16 01:00 102 09/18/16 00:00 111 09/17/16 23:00 104 09/17/16 23:00 96 Nasal Cannula 2.00 09/17/16 23:00 98.0 101 22 114/64 96 09/17/16 22:00 88 09/17/16 21:00 86 09/17/16 20:00 70 09/17/16 19:58 94 Nasal Cannula 2.00 09/17/16 19:00 97.7 89 24 123/62 94 09/17/16 19:00 90 09/17/16 19:00 94 Nasal Cannula 2.00 09/17/16 18:05 75 09/17/16 17:05 97.9 92 22 112/44 97 09/17/16 17:05 110 09/17/16 17:05 97 Nasal Cannula 2.00 09/17/16 16:12 84 09/17/16 15:15 85 09/17/16 14:21 113 09/17/16 13:02 105 09/17/16 12:14 70 09/17/16 11:56 94 Nasal Cannula 2.00 09/17/16 11:56 97.7 97 22 113/55 94 09/17/16 11:12 99 09/17/16 10:53 99 Labs: Laboratory Tests Test 09/18/16 04:46 White Blood Count 16.5 TH/MM3 (4.0-11.0) Red Blood Count 3.16 MIL/MM3 (4.50-5.90) Hemoglobin 9.3 GM/DL (13.0-17.0) Hematocrit 27.8 % (39.0-51.0) Mean Corpuscular Volume 88.0 FL (80.0-100.0) Mean Corpuscular Hemoglobin 29.4 PG (27.0-34.0) Mean Corpuscular Hemoglobin 33.4 % Concent (32.0-36.0) Red Cell Distribution Width 14.4 % (11.6-17.2) Platelet Count 39 TH/MM3 (150-450) Mean Platelet Volume 9.7 FL (7.0-11.0) Neutrophils (%) (Auto) 72.0 % (16.0-70.0) Lymphocytes (%) (Auto) 21.4 % (9.0-44.0) Monocytes (%) (Auto) 6.5 % (0.0-8.0) Eosinophils (%) (Auto) 0.0 % (0.0-4.0) Basophils (%) (Auto) 0.1 % (0.0-2.0) Neutrophils # (Auto) 11.9 TH/MM3 (1.8-7.7) Lymphocytes # (Auto) 3.5 TH/MM3 (1.0-4.8) Monocytes # (Auto) 1.1 TH/MM3 (0-0.9) Eosinophils # (Auto) 0.0 TH/MM3 (0-0.4) Basophils # (Auto) 0.0 TH/MM3 (0-0.2) CBC Comment AUTO DIFF Differential Comment AUTO DIFF CONFIRMED Platelet Estimate LOW (NORMAL) Platelet Morphology Comment NORMAL (NORMAL) Prothrombin Time 12.0 SEC (9.8-11.6) Prothromb Time International 1.1 RATIO Ratio Sodium Level 143 MEQ/L (136-145) Potassium Level 3.7 MEQ/L (3.5-5.1) Chloride Level 106 MEQ/L (98-107) Carbon Dioxide Level 28.7 MEQ/L (21.0-32.0) Anion Gap 8 MEQ/L (5-15) Blood Urea Nitrogen 46 MG/DL (7-18) Creatinine 1.84 MG/DL (0.60-1.30) Estimat Glomerular Filtration 35 ML/MIN (>89) Rate Random Glucose 101 MG/DL (74-106) Calcium Level 8.3 MG/DL (8.5-10.1) Result Diagram: 09/18/1644509/18/16445 Imaging: Last 24 hours Impressions Chest X-Ray 09/18/16 0600 Signed Impressions: Service Date/Time: Sunday, September 18, 2016 03:47 - CONCLUSION: Hypoinflation. Mild cardiomegaly. Rad Waite Jr., MD Cardiovascular: IRR, chronic AFIB. No murmurs. Telemetry: Paced Pulmonary: Decreased BS bilat GI/: Distended, tympanitic, non-tender with decreased BS Incision: dry and intact CT: 90ml/12 hrs Plan: Left arm DVT found with left arm swelling. Slightly improved today. Etiology of this is unclear as the patient had no indwelling lines. He does have indwelling pacemaker leads on the left. Will restart Xarelto today Thrombocytopenia concerning - down to 39K today. HIT panel pending. He is NOT on heparin products and ASA has been held. He does need ASA and I will restart Xarelto today. If no improvement tomorrow, will consult Hematology Up to chair/ambulate Diurese Start reglan for motility, stim BM Encourage PO intake Remove chest tubes Keep Montoya one more day (1) Aortic stenosis (2) S/P AVR (aortic valve replacement) Plan: ASA, BB afib rate 100 gentle diuresis aggressive pum toileting OOB ambulate (3) Chronic kidney disease Plan: avoid nephrotoxins, Monitor indices worsening indices/ consult nephrology (4) aflutter Plan: resume xarelto when chest tubes out (5) Coronary artery disease Plan: ASA, BB statin (6) Hypertension Plan: controlled (7) DVT (deep venous thrombosis) Plan: start xarelto tomorrow , when chest tube out (8) Thrombocytopenia Plan: check HIT panel Tierra French MD Sep 18, 2016 10:56
[2016-09-18] MEDS: RIVAROXABAN 15 MG TAB PO SCH (12:33)
--- NOTE | 2016-09-18 12:51 | RADRPT ---
EXAM DATE/TIME: 09/18/2016 10:09 [facility] COMPARISON: No previous studies available for comparison. INDICATIONS : Increased BUN and creatinine. MEDICAL HISTORY : Renal calculi. Hypertension. Irregular heartbeat. Heartburn. Enlarged prostat e. Measles. SURGICAL HISTORY : Pacemaker. Left shoulder surgery. Bilateral cataract removal. ENCOUNTER: Subsequent ACUITY: 1 day PAIN SCORE: 0/10 LOCATION: Bilateral flank MEASUREMENTS: RIGHT KIDNEY: 11.5 x 6.3 x 5.4 cm LEFT KIDNEY: 11.4 x 5.5 x 6.5 cm FINDINGS: RIGHT KIDNEY: The renal cortex is diffusely thin and echogenic consistent with chronic medical re nal disease. There is a single small calcific density which may represent a small nonobstructing ston e versus a vascular calcification. No evidence of concerning mass or hydronephrosis. LEFT KIDNEY: The left renal cortex is diffusely thinned and increased in echogenicity consistent with chronic medical renal disease. No evidence of concerning mass. BLADDER: Bladder is decompressed and there is a small amount of free fluid noted by the technolog ist anterior to the bladder. CONCLUSION: Evidence of chronic medical renal disease. Small amount of free fluid seen anterior t o the bladder, etiology unknown. Corrie Benton MD on September 18, 2016 at 12:46 Board Certified Radiologist. This report was verified electronically.
[2016-09-18] MEDS: METOCLOPRAMIDE HCL 10 MG/2 ML VIAL IV PUSH SCH ×2 (13:34→22:35)
[2016-09-18 13:54] LABS: HEPARIN INDUCED PLATELET AB NEGATIVE (NEGATIVE)
--- NOTE | 2016-09-18 15:00 | HHI.NPPN ---
Subjective History of Present Illness 86 Year old with s/p surgery with MORRO Objective Data Data 09/17/16 09/18/16 19:00 07:00 Intake Total 840 ml 240 ml Output Total 710 ml 540 ml Balance 130 ml -300 ml Intake Oral 840 ml 240 ml Output Urine Total 500 ml 450 ml Chest Tube Drainage Total 210 ml 90 ml Vital Signs Date Time Temp Pulse Resp B/P Pulse Ox O2 Delivery O2 Flow Rate FiO2 09/18/16 14:11 91 09/18/16 13:10 70 09/18/16 12:48 88 09/18/16 11:45 97.8 86 22 132/69 94 09/18/16 11:45 95 Nasal Cannula 2.00 09/18/16 11:00 87 09/18/16 10:00 87 09/18/16 09:00 82 09/18/16 08:00 82 09/18/16 07:48 97.7 85 21 121/42 95 09/18/16 07:48 95 Nasal Cannula 2.00 09/18/16 07:37 95 Nasal Cannula 2.00 09/18/16 07:00 105 09/18/16 06:00 105 09/18/16 05:00 105 09/18/16 04:00 93 09/18/16 03:00 106 09/18/16 03:00 97.9 99 20 128/72 97 09/18/16 03:00 95 Nasal Cannula 2.00 09/18/16 02:00 104 09/18/16 01:00 102 09/18/16 00:00 111 09/17/16 23:00 104 09/17/16 23:00 96 Nasal Cannula 2.00 09/17/16 23:00 98.0 101 22 114/64 96 09/17/16 22:00 88 09/17/16 21:00 86 09/17/16 20:00 70 09/17/16 19:58 94 Nasal Cannula 2.00 09/17/16 19:00 97.7 89 24 123/62 94 09/17/16 19:00 90 09/17/16 19:00 94 Nasal Cannula 2.00 09/17/16 18:05 75 09/17/16 17:05 97.9 92 22 112/44 97 09/17/16 17:05 110 09/17/16 17:05 97 Nasal Cannula 2.00 09/17/16 16:12 84 09/17/16 15:15 85 -: 09/18/16 0446 09/18/16 0446 Physical Exam General Appearance: Well Developed Eyes Eye Exam: Pupils Equal Neck Neck Exam: Neck Supple Pulmonary Resp Exam: Clear Bilaterally Cardiology CV Exam: Regular Gastrointestinal/Abdomen GI Exam: Soft, Non-Tender Integumentary Skin Exam: Clear Extremeties Extremities Exam: No Edema Assessment/Plan Problem List: (1) Acute renal failure Plan: Cr declined 1.8 has WBC/RBC in urine culture negative US showed CKD SPEP pending (2) S/P AVR (aortic valve replacement) Plan: s/p surgery (3) Thrombocytopenia Plan: HIT? Dahiana Cotto MD Sep 18, 2016 15:00
[2016-09-18] MEDS: ATORVASTATIN 20 MG TAB PO SCH (22:34)
[2016-09-18] MEDS: SENNOSIDES 8.6 MG TAB PO SCH (22:34)
[2016-09-19] VITALS (24 sets, daily range): BP systolic 106–148; BP diastolic 45–64; PULSE 73–93; RESP 18–24; TEMP 97.5–98.2; O2SAT 92–99
[2016-09-19] MEDS: METOCLOPRAMIDE HCL 10 MG/2 ML VIAL IV PUSH SCH ×3 (05:58→21:03)
[2016-09-19] MEDS: INSULIN ASPART SUPPLEMENTAL SCALE SQ SCH ×4 (05:58→21:00)
[2016-09-19] MEDS: PANTOPRAZOLE SOD 40 MG DELAYED RELEASE TAB PO SCH (05:58)
[2016-09-19 07:57] LABS: MEAN CELL VOLUME 88.4 FL (80.0-100.0); MEAN CORPUSCULAR HGB CONC 32.8 % (32.0-36.0); PLATELET COUNT 54 TH/MM3 (150-450); RED CELL DISTRIBUTION WIDTH 14.6 % (11.6-17.2); WHITE BLOOD COUNT 17.5 TH/MM3 (4.0-11.0)
[2016-09-19 08:06] LABS: BICARBONATE 28.9 MEQ/L (21.0-32.0); POTASSIUM 3.8 MEQ/L (3.5-5.1)
[2016-09-19 08:56] LABS: REVIEW FLAG FINAL
[2016-09-19] MEDS: MULTIVITAMINS/MINERALS THERAPEUTIC TAB PO SCH (09:10)
[2016-09-19] MEDS: RIVAROXABAN 15 MG TAB PO SCH (09:10)
[2016-09-19] MEDS: DOCUSATE SODIUM 100 MG CAP PO SCH ×2 (09:11→21:02)
[2016-09-19] MEDS: FUROSEMIDE 20 MG/2 ML VIAL IV PUSH SCH (09:11)
[2016-09-19] MEDS: POLYETHYLENE GLYCOL 17 GM PKG PO SCH (09:11)
[2016-09-19] MEDS: METOPROLOL TARTRATE 25 MG TAB PO SCH ×2 (09:11→21:03)
[2016-09-19] MEDS: TAMSULOSIN HCL 0.4 MG CAP PO SCH ×2 (09:11→17:57)
[2016-09-19] MEDS: CHOLECALCIFEROL (VIT D3) 1000 UNIT TAB PO SCH (09:11)
[2016-09-19] MEDS: ASPIRIN 81 MG CHEW TAB PO SCH (09:19)
--- NOTE | 2016-09-19 11:33 | PD.CAR.PN ---
CVT Progress Note CVT: POD #: 4 Subjective/Hospital Course: 86/ male HX of aortic stenosis, increasing SOB x one month lower ext edema , underwent cardiac cath by Dr Soto / found to have vlave area 0.82/ peak gradient 52/ EF 55% , mild CAD PMH: AI/ / aflutter on xarelto at home , BV ICD, CKD stage 111, HTN BPH surgery: 09/15 Minimally invasive AVR with a 27 Stark Intuity tissue valve THONY, Percutaneous access left femoral artery and vein with Perclose closure 09/16 +9 kg , 3000 crystalloid, 2 units PRBC, 500 cellsaver up in chair, still SOB with exertion CXR noted, atelectasis , volume overload gentle diuresis tachycardic this am, received dose of IV lopressor will start low dose BB plan to transfer to stepdown unit 09/17 worsening renal indices/ nephrology consulted EKG intermittent V paced/ afib + edema left arm > right / US + basilic and axillary DVT PLT 57/ check HIT panel, restart xarelto in am when chest tube out / + leukoestrase in urine/ + blood / await culture/ received post op antibiotics 09/18/16 Stable course with stable creatinine. c/o exertional dyspnea, but better than yesterday. No BM, + flatus 09/19/16 Improving. BM x 2, less dyspnea, better appetite. Objective: Vital Signs Date Time Temp Pulse Resp B/P Pulse Ox O2 Delivery O2 Flow Rate FiO2 09/19/16 10:02 80 09/19/16 09:03 82 09/19/16 08:23 80 09/19/16 07:40 97.6 80 20 129/58 99 09/19/16 07:40 99 Nasal Cannula 2.00 09/19/16 07:40 77 09/19/16 06:10 78 09/19/16 05:00 74 09/19/16 04:00 75 09/19/16 03:00 97.5 78 24 148/64 98 09/19/16 03:00 78 09/19/16 03:00 95 Nasal Cannula 2.50 09/19/16 02:00 78 09/19/16 01:00 82 09/19/16 00:00 93 09/18/16 23:00 96 Nasal Cannula 2.50 09/18/16 23:00 81 09/18/16 23:00 97.8 79 22 125/60 96 09/18/16 22:00 80 09/18/16 21:00 80 09/18/16 20:00 81 09/18/16 19:00 95 Nasal Cannula 2.00 09/18/16 19:00 98.0 83 23 135/64 95 09/18/16 19:00 82 09/18/16 18:04 86 09/18/16 17:20 82 09/18/16 16:06 83 09/18/16 15:38 96 Nasal Cannula 2.00 09/18/16 15:38 98.3 93 22 121/54 96 09/18/16 15:38 92 09/18/16 14:11 91 09/18/16 13:10 70 09/18/16 12:48 88 09/18/16 11:45 97.8 86 22 132/69 94 09/18/16 11:45 95 Nasal Cannula 2.00 Labs: Laboratory Tests Test 09/19/16 06:20 White Blood Count 17.5 TH/MM3 (4.0-11.0) Red Blood Count 3.50 MIL/MM3 (4.50-5.90) Hemoglobin 10.1 GM/DL (13.0-17.0) Hematocrit 31.0 % (39.0-51.0) Mean Corpuscular Volume 88.4 FL (80.0-100.0) Mean Corpuscular Hemoglobin 29.0 PG (27.0-34.0) Mean Corpuscular Hemoglobin 32.8 % Concent (32.0-36.0) Red Cell Distribution Width 14.6 % (11.6-17.2) Platelet Count 54 TH/MM3 (150-450) Mean Platelet Volume 10.4 FL (7.0-11.0) Sodium Level 143 MEQ/L (136-145) Potassium Level 3.8 MEQ/L (3.5-5.1) Chloride Level 105 MEQ/L (98-107) Carbon Dioxide Level 28.9 MEQ/L (21.0-32.0) Anion Gap 9 MEQ/L (5-15) Blood Urea Nitrogen 55 MG/DL (7-18) Creatinine 1.88 MG/DL (0.60-1.30) Estimat Glomerular Filtration 34 ML/MIN (>89) Rate Random Glucose 136 MG/DL (74-106) Calcium Level 8.0 MG/DL (8.5-10.1) Result Diagram: 09/19/1661909/19/16619 Cardiovascular: RRR Telemetry: Paced Pulmonary: Improved with increased BS GI/: NABS, NT Incision: dry and intact Plan: Diurese Encourage ambulation Thrombocytopenia improving Wean O2 (1) Aortic stenosis (2) S/P AVR (aortic valve replacement) Plan: ASA, BB afib rate 100 gentle diuresis aggressive pum toileting OOB ambulate (3) Chronic kidney disease Plan: avoid nephrotoxins, Monitor indices worsening indices/ consult nephrology (4) aflutter Plan: resume xarelto when chest tubes out (5) Coronary artery disease Plan: ASA, BB statin (6) Hypertension Plan: controlled (7) DVT (deep venous thrombosis) Plan: start xarelto tomorrow , when chest tube out (8) Thrombocytopenia Plan: check HIT panel Tierra French MD Sep 19, 2016 11:33
[2016-09-19] MEDS: POTASSIUM CHLORIDE 10 MEQ CONTROLLED RELEASE TAB PO SCH ×2 (12:12→21:02)
--- NOTE | 2016-09-19 14:02 | HHI.NPPN ---
Subjective History of Present Illness 86 Year old with s/p surgery with MORRO Objective Data Data 09/18/16 09/19/16 19:00 07:00 Intake Total 840 ml 240 ml Output Total 538 ml 400 ml Balance 302 ml -160 ml Intake Oral 840 ml 240 ml Output Urine Total 525 ml 400 ml Stool Total 3 ml 0 ml Chest Tube Drainage Total 10 ml Vital Signs Date Time Temp Pulse Resp B/P Pulse Ox O2 Delivery O2 Flow Rate FiO2 09/19/16 13:10 84 09/19/16 12:07 83 09/19/16 11:00 97.6 83 20 106/57 98 09/19/16 11:00 81 09/19/16 11:00 98 Nasal Cannula 2.00 09/19/16 10:02 80 09/19/16 09:03 82 09/19/16 08:23 80 09/19/16 07:40 97.6 80 20 129/58 99 09/19/16 07:40 99 Nasal Cannula 2.00 09/19/16 07:40 77 09/19/16 06:10 78 09/19/16 05:00 74 09/19/16 04:00 75 09/19/16 03:00 97.5 78 24 148/64 98 09/19/16 03:00 78 09/19/16 03:00 95 Nasal Cannula 2.50 09/19/16 02:00 78 09/19/16 01:00 82 09/19/16 00:00 93 09/18/16 23:00 96 Nasal Cannula 2.50 09/18/16 23:00 81 09/18/16 23:00 97.8 79 22 125/60 96 09/18/16 22:00 80 09/18/16 21:00 80 09/18/16 20:00 81 09/18/16 19:00 95 Nasal Cannula 2.00 09/18/16 19:00 98.0 83 23 135/64 95 09/18/16 19:00 82 09/18/16 18:04 86 09/18/16 17:20 82 09/18/16 16:06 83 09/18/16 15:38 96 Nasal Cannula 2.00 09/18/16 15:38 98.3 93 22 121/54 96 09/18/16 15:38 92 09/18/16 14:11 91 -: 09/19/1620 09/19/16619 Physical Exam General Appearance: Well Developed Eyes Eye Exam: Pupils Equal Neck Neck Exam: Neck Supple Pulmonary Resp Exam: Clear Bilaterally Cardiology CV Exam: Regular Gastrointestinal/Abdomen GI Exam: Soft, Non-Tender Integumentary Skin Exam: Clear Extremeties Extremities Exam: No Edema Assessment/Plan Problem List: (1) Acute renal failure Plan: Cr at 1.88 has WBC/RBC in urine on Bumex 1 mg q 12 culture negative US showed CKD SPEP pending Dr. Antoine to follow (2) S/P AVR (aortic valve replacement) Plan: s/p surgery (3) Thrombocytopenia Plan: HIT neg improving 54 k Dahiana Cotto MD Sep 19, 2016 14:02
[2016-09-19] MEDS: BUMETANIDE INJ 1 MG/4 ML VIAL IV PUSH SCH (17:55)
[2016-09-19] MEDS: SENNOSIDES 8.6 MG TAB PO SCH (21:02)
[2016-09-19] MEDS: ATORVASTATIN 20 MG TAB PO SCH (21:02)
[2016-09-20] VITALS (26 sets, daily range): BP systolic 114–146; BP diastolic 46–62; PULSE 68–78; RESP 17–24; TEMP 97.7–98.4; O2SAT 92–98
[2016-09-20 05:13] LABS: POTASSIUM 3.7 MEQ/L (3.5-5.1)
[2016-09-20] MEDS: METOCLOPRAMIDE HCL 10 MG/2 ML VIAL IV PUSH SCH ×3 (06:05→22:41)
[2016-09-20] MEDS: PANTOPRAZOLE SOD 40 MG DELAYED RELEASE TAB PO SCH (06:05)
[2016-09-20] MEDS: INSULIN ASPART SUPPLEMENTAL SCALE SQ SCH ×4 (07:00→21:00)
[2016-09-20] MEDS: ASPIRIN 81 MG CHEW TAB PO SCH ×2 (09:00→10:54)
[2016-09-20] MEDS: BUMETANIDE INJ 1 MG/4 ML VIAL IV PUSH SCH ×2 (09:06→17:22)
[2016-09-20] MEDS: CHOLECALCIFEROL (VIT D3) 1000 UNIT TAB PO SCH (09:07)
[2016-09-20] MEDS: MULTIVITAMINS/MINERALS THERAPEUTIC TAB PO SCH (09:07)
[2016-09-20] MEDS: POLYETHYLENE GLYCOL 17 GM PKG PO SCH (09:07)
[2016-09-20] MEDS: DOCUSATE SODIUM 100 MG CAP PO SCH ×2 (09:07→22:40)
[2016-09-20] MEDS: TAMSULOSIN HCL 0.4 MG CAP PO SCH ×2 (09:08→17:22)
[2016-09-20] MEDS: METOPROLOL TARTRATE 25 MG TAB PO SCH ×2 (09:08→22:41)
[2016-09-20] MEDS: POTASSIUM CHLORIDE 10 MEQ CONTROLLED RELEASE TAB PO SCH ×2 (09:08→22:41)
[2016-09-20] MEDS: RIVAROXABAN 15 MG TAB PO SCH (10:54)
[2016-09-20 10:58] LABS: AUTOMATED NEUTROPHIL # 11.1 TH/MM3 (1.8-7.7); BASOPHIL % 0.1 % (0.0-2.0); EOSINOPHIL % 0.1 % (0.0-4.0); HEMATOCRIT 32.9 % (39.0-51.0); LYMPH % 28.9 % (9.0-44.0); LYMPHOCYTE # 4.8 TH/MM3 (1.0-4.8); MEAN CORPUSCULAR HGB CONC 32.5 % (32.0-36.0); NEUT % 66.9 % (16.0-70.0); PLATELET COUNT 78 TH/MM3 (150-450); RED CELL DISTRIBUTION WIDTH 14.1 % (11.6-17.2); WHITE BLOOD COUNT 16.6 TH/MM3 (4.0-11.0)
[2016-09-20 11:01] LABS: HEMO FLAGS AUTO DIFF
[2016-09-20 11:30] LABS: PLATELET ESTIMATE SMEAR LOW (NORMAL); PLATELET MORPHOLOGY NORMAL (NORMAL); SCAN/DIFF AUTO DIFF CONFIRMED
--- NOTE | 2016-09-20 14:12 | PD.CAR.PN ---
CVT Progress Note Subjective/Hospital Course: 86/ male HX of aortic stenosis, increasing SOB x one month lower ext edema , underwent cardiac cath by Dr Soto / found to have vlave area 0.82/ peak gradient 52/ EF 55% , mild CAD PMH: AI/ / aflutter on xarelto at home , BV ICD, CKD stage 111, HTN BPH surgery: 09/15 Minimally invasive AVR with a 27 Stark Intuity tissue valve THONY, Percutaneous access left femoral artery and vein with Perclose closure 09/16 +9 kg , 3000 crystalloid, 2 units PRBC, 500 cellsaver up in chair, still SOB with exertion CXR noted, atelectasis , volume overload gentle diuresis tachycardic this am, received dose of IV lopressor will start low dose BB plan to transfer to stepdown unit 09/17 worsening renal indices/ nephrology consulted EKG intermittent V paced/ afib + edema left arm > right / US + basilic and axillary DVT PLT 57/ check HIT panel, restart xarelto in am when chest tube out / + leukoestrase in urine/ + blood / await culture/ received post op antibiotics 09/18/16 Stable course with stable creatinine. c/o exertional dyspnea, but better than yesterday. No BM, + flatus 09/19/16 Improving. BM x 2, less dyspnea, better appetite. 09/20/16 + BM, abd still somewhat distended, + bowel sounds continue GI motility meds on diuretics / still up 4 kg change to po in am HIT panel neg Objective: GENERAL: SKIN: Warm and dry.incision intact to right chest wall HEAD: Normocephalic. EYES: No scleral icterus. No injection or drainage. NECK: Supple, trachea midline. No JVD or lymphadenopathy. CARDIOVASCULAR: irregular rate and rhythm without murmurs, gallops, or rubs. RESPIRATORY: diminished in bases, few crackles, improving Breath sounds equal bilaterally. No accessory muscle use. + [place] ext edema/ improving GASTROINTESTINAL: obese, slightly distended + bowel sounds Abdomen soft, non-tender, MUSCULOSKELETAL: No cyanosis, or edema. BACK: Nontender without obvious deformity. No CVA tenderness. Vital Signs Date Time Temp Pulse Resp B/P Pulse Ox O2 Delivery O2 Flow Rate FiO2 09/20/16 14:00 74 09/20/16 13:02 69 09/20/16 12:00 71 09/20/16 11:00 95 Room Air 09/20/16 11:00 76 09/20/16 11:00 97.7 78 20 114/60 95 09/20/16 10:00 68 09/20/16 09:29 97 Nasal Cannula 2.00 09/20/16 09:00 68 09/20/16 08:00 72 09/20/16 07:30 97.9 72 17 146/62 98 09/20/16 07:00 72 09/20/16 07:00 98 Nasal Cannula 2.00 Humidified 09/20/16 06:00 71 09/20/16 05:00 70 09/20/16 04:00 70 09/20/16 03:00 72 09/20/16 03:00 98.2 71 18 120/50 93 09/20/16 03:00 93 Nasal Cannula 2.00 Humidified 09/20/16 02:00 71 09/20/16 01:00 72 09/20/16 00:00 72 09/19/16 23:00 99 Nasal Cannula 2.00 Humidified 09/19/16 23:00 73 09/19/16 23:00 98.1 74 19 109/45 99 09/19/16 22:00 74 09/19/16 21:00 78 09/19/16 20:00 80 09/19/16 19:00 96 Nasal Cannula 2.00 Humidified 09/19/16 19:00 98.2 85 18 125/56 96 09/19/16 19:00 81 09/19/16 18:17 80 09/19/16 17:04 78 09/19/16 16:46 78 09/19/16 15:45 92 Nasal Cannula 2.00 09/19/16 15:45 80 09/19/16 15:45 98.0 79 19 113/52 92 09/19/16 15:10 Nasal Cannula 2.00 09/19/16 14:14 78 Labs: Laboratory Tests Test 09/20/16 09/20/16 03:38 10:40 Sodium Level 143 MEQ/L (136-145) Potassium Level 3.7 MEQ/L (3.5-5.1) Chloride Level 106 MEQ/L (98-107) Carbon Dioxide Level 28.0 MEQ/L (21.0-32.0) Anion Gap 9 MEQ/L (5-15) Blood Urea Nitrogen 54 MG/DL (7-18) Creatinine 1.83 MG/DL (0.60-1.30) Estimat Glomerular Filtration 35 ML/MIN (>89) Rate Random Glucose 99 MG/DL (74-106) Calcium Level 7.8 MG/DL (8.5-10.1) White Blood Count 16.6 TH/MM3 (4.0-11.0) Red Blood Count 3.70 MIL/MM3 (4.50-5.90) Hemoglobin 10.7 GM/DL (13.0-17.0) Hematocrit 32.9 % (39.0-51.0) Mean Corpuscular Volume 89.0 FL (80.0-100.0) Mean Corpuscular Hemoglobin 29.0 PG (27.0-34.0) Mean Corpuscular Hemoglobin 32.5 % Concent (32.0-36.0) Red Cell Distribution Width 14.1 % (11.6-17.2) Platelet Count 78 TH/MM3 (150-450) Mean Platelet Volume 10.1 FL (7.0-11.0) Neutrophils (%) (Auto) 66.9 % (16.0-70.0) Lymphocytes (%) (Auto) 28.9 % (9.0-44.0) Monocytes (%) (Auto) 4.0 % (0.0-8.0) Eosinophils (%) (Auto) 0.1 % (0.0-4.0) Basophils (%) (Auto) 0.1 % (0.0-2.0) Neutrophils # (Auto) 11.1 TH/MM3 (1.8-7.7) Lymphocytes # (Auto) 4.8 TH/MM3 (1.0-4.8) Monocytes # (Auto) 0.7 TH/MM3 (0-0.9) Eosinophils # (Auto) 0.0 TH/MM3 (0-0.4) Basophils # (Auto) 0.0 TH/MM3 (0-0.2) CBC Comment AUTO DIFF Differential Comment AUTO DIFF CONFIRMED Platelet Estimate LOW (NORMAL) Platelet Morphology Comment NORMAL (NORMAL) Red Cell Morphology Comment NORMAL (NORMAL) Result Diagram: 09/20/16 1040 09/20/16 6468 Telemetry: afib/ flutter (1) Aortic stenosis (2) S/P AVR (aortic valve replacement) Plan: ASA, BB afib rate 70-80/ gentle diuresis aggressive pum toileting OOB ambulate (3) Chronic kidney disease Plan: avoid nephrotoxins, Monitor indices improving indices/ nephrology following (4) aflutter Plan: xarelto (5) Coronary artery disease Plan: ASA, BB statin (6) Hypertension Plan: controlled (7) DVT (deep venous thrombosis) Plan: xarelto (8) Thrombocytopenia Plan: neg HIT panel PLT improving Corrie Otero Sep 20, 2016 14:12
--- NOTE | 2016-09-20 19:10 | HHI.NPPN ---
Subjective General Problems: Anemia, Edema, Heart Disease Renal Failure: Acute, Stage III History of Present Illness 86-year-old male with past medical history of. Ischemic heart disease, chronic kidney disease post aortic wall replacement. Aortic stenosis, atrial flutter. Hypertension, benign prostatic hypertrophy, who was admitted for aortic wall replacement. I was called to see the patient because of elevated BUN and creatinine. The patient has known history of chronic kidney disease, his baseline creatinine is around 1.5 and he was admitted on and his creatinine was 1.8 . On September 15, he underwent Minimally invasive aortic wall replacement. Additional Remarks Patient now alert, sitting on chair, not in distress. Review of Systems General Constitutional: Fatigue Cardiovascular Cardiac: Edema, HAWKINS Objective Data Data 09/19/16 09/20/16 19:00 07:00 Intake Total 720 ml 240 ml Output Total 429 ml 450 ml Balance 291 ml -210 ml Intake Oral 720 ml 240 ml Output Urine Total 425 ml 450 ml Stool Total 4 ml # Bowel Movements 0 Vital Signs Date Time Temp Pulse Resp B/P Pulse Ox O2 Delivery O2 Flow Rate FiO2 09/20/16 18:00 70 09/20/16 17:00 71 09/20/16 16:00 75 09/20/16 15:00 97.7 74 17 123/54 92 09/20/16 15:00 75 09/20/16 15:00 98 Room Air 09/20/16 14:00 74 09/20/16 13:02 69 09/20/16 12:00 71 09/20/16 11:00 95 Room Air 09/20/16 11:00 76 09/20/16 11:00 97.7 78 20 114/60 95 09/20/16 10:00 68 09/20/16 09:29 97 Nasal Cannula 2.00 09/20/16 09:00 68 09/20/16 08:00 72 09/20/16 07:30 97.9 72 17 146/62 98 09/20/16 07:00 72 09/20/16 07:00 98 Nasal Cannula 2.00 Humidified 09/20/16 06:00 71 09/20/16 05:00 70 09/20/16 04:00 70 09/20/16 03:00 72 09/20/16 03:00 98.2 71 18 120/50 93 09/20/16 03:00 93 Nasal Cannula 2.00 Humidified 09/20/16 02:00 71 09/20/16 01:00 72 09/20/16 00:00 72 09/19/16 23:00 99 Nasal Cannula 2.00 Humidified 09/19/16 23:00 73 09/19/16 23:00 98.1 74 19 109/45 99 09/19/16 22:00 74 09/19/16 21:00 78 09/19/16 20:00 80 -: 09/20/16 1040 09/20/16 0338 Physical Exam General Appearance: No Acute Distress, Comfortable Eyes Eye Exam: Pupils Equal Neck Neck Exam: Neck Supple Pulmonary Resp Exam: Breath Sounds Equal, No Distress, Rhonchi, Decreased Bases, Diminished Breath Sounds Cardiology CV Exam: Regular Gastrointestinal/Abdomen GI Exam: Soft, Non-Tender, Distended Integumentary Skin Exam: Clear Extremeties Extremities Exam: Moderate Edema, Pitting Edema Neurologic Neuro Exam: Alert, Awake Psychiatric Psych Exam: Appropriate Responses Assessment/Plan Assessment Summary: MORRO/Acute Renal Failure, CKD Stage III Problem List: (1) Acute renal failure Plan: Patient has chronic kidney disease, Baseline Creatinine is 1.5, Now the Crea. is at 1.88 Bumex 1 mg q 12 Urine culture negative US showed CKD SPEP pending Continue Bumex, follow urine out put and BMP. (2) S/P AVR (aortic valve replacement) Plan: s/p surgery (3) Thrombocytopenia Plan: HIT neg improving. Da Antoine MD Sep 20, 2016 19:10
[2016-09-20 22:04] LABS: ALBUMIN SPE 2.89 GM/DL (3.50-5.00); ALPHA 2 GLOBULIN 0.54 GM/DL (0.22-1.00); BETA GLOBULINS (SPE) 0.55 GM/DL (0.53-1.03)
[2016-09-20 22:05] LABS: ALPHA 1 GLOBULIN 0.26 GM/DL (0.11-0.29)
[2016-09-20] MEDS: ATORVASTATIN 20 MG TAB PO SCH (22:41)
[2016-09-20] MEDS: SENNOSIDES 8.6 MG TAB PO SCH (22:41)
[2016-09-21] VITALS (27 sets, daily range): BP systolic 111–142; BP diastolic 49–56; PULSE 68–74; RESP 16–21; TEMP 97.8–99; O2SAT 93–97
[2016-09-21 06:11] LABS: AUTOMATED NEUTROPHIL # 9.6 TH/MM3 (1.8-7.7); EOSINOPHIL # 0.1 TH/MM3 (0-0.4); EOSINOPHIL % 0.7 % (0.0-4.0); HEMATOCRIT 29.4 % (39.0-51.0); LYMPH % 26.2 % (9.0-44.0); LYMPHOCYTE # 3.7 TH/MM3 (1.0-4.8); MEAN CORPUSCULAR HEMOGLOBIN 29.2 PG (27.0-34.0); MEAN CORPUSCULAR HGB CONC 32.8 % (32.0-36.0); MONO % 5.9 % (0.0-8.0); NEUT % 67.2 % (16.0-70.0); PLATELET COUNT 71 TH/MM3 (150-450); RED CELL DISTRIBUTION WIDTH 14.2 % (11.6-17.2); WHITE BLOOD COUNT 14.3 TH/MM3 (4.0-11.0)
[2016-09-21] MEDS: PANTOPRAZOLE SOD 40 MG DELAYED RELEASE TAB PO SCH (06:12)
[2016-09-21] MEDS: METOCLOPRAMIDE HCL 10 MG/2 ML VIAL IV PUSH SCH ×3 (06:12→21:08)
[2016-09-21] MEDS: INSULIN ASPART SUPPLEMENTAL SCALE SQ SCH ×4 (06:12→21:08)
[2016-09-21 06:24] LABS: BICARBONATE 27.2 MEQ/L (21.0-32.0); POTASSIUM 3.5 MEQ/L (3.5-5.1)
[2016-09-21 06:41] LABS: HEMO FLAGS AUTO DIFF
[2016-09-21 08:48] LABS: PLATELET ESTIMATE SMEAR LOW (NORMAL); PLATELET MORPHOLOGY NORMAL (NORMAL); SCAN/DIFF AUTO DIFF CONFIRMED
[2016-09-21] MEDS: POTASSIUM CHLORIDE 10 MEQ CONTROLLED RELEASE TAB PO SCH ×2 (10:24→21:07)
[2016-09-21] MEDS: MULTIVITAMINS/MINERALS THERAPEUTIC TAB PO SCH (10:26)
[2016-09-21] MEDS: DOCUSATE SODIUM 100 MG CAP PO SCH ×2 (10:26→21:07)
[2016-09-21] MEDS: CHOLECALCIFEROL (VIT D3) 1000 UNIT TAB PO SCH (10:27)
[2016-09-21] MEDS: RIVAROXABAN 15 MG TAB PO SCH (10:27)
[2016-09-21] MEDS: TAMSULOSIN HCL 0.4 MG CAP PO SCH ×2 (10:28→17:26)
[2016-09-21] MEDS: ASPIRIN 81 MG CHEW TAB PO SCH (10:29)
[2016-09-21] MEDS: METOPROLOL TARTRATE 25 MG TAB PO SCH ×2 (10:30→21:07)
[2016-09-21] MEDS: POLYETHYLENE GLYCOL 17 GM PKG PO SCH (10:31)
[2016-09-21] MEDS: BUMETANIDE INJ 1 MG/4 ML VIAL IV PUSH SCH ×2 (10:32→17:25)
[2016-09-21] MEDS ORDERED: POTASSIUM CHLORIDE 20 MEQ CONTROLLED RELEASE TAB PO ONE (11:00)
--- NOTE | 2016-09-21 11:03 | HHI.FF ---
Face to Face Verification Diagnosis: (1) Coronary artery disease (2) Hypertension (3) Chronic kidney disease (4) Aortic stenosis (5) DVT (deep venous thrombosis) (6) S/P AVR (aortic valve replacement) (7) Acute renal failure Physical Therapy Order: Evaluate and Treat Home Health Nursing Order: Signs/symptoms of disease process Wound care and dressing changes Nursing assessment with vital signs Instructions: Heart and Vascular Surgery patients *Special attention to sternal dressing Mandatory frequency Assess and evaluation, 4 days in a row The next week 3X week 2 times a week for 4 weeks 1 time a week for 5 weeks Schedule Heart and Vascular patients for full 60 day certification period Initial visit Review Open Heart Surgery Discharge Instructions (Sternal precautions, Activity, Elastic hose, Incision care, Driving, Incentive spirometry, Smoking, [place], Work and other) Need Betadine to paint incision Medication reconciliation Importance of follow up care/ check on appointments Make calendar record temperature daily When to call [facility] nurse, review instructions, phone list Incentive Spirometry, demonstration Visit 1- Begin discharge instruction for patient family and/ or caregiver using teach back method- Signs and symptoms of infection Disease characteristics Medicines and side effects Foods and nutrition/ appetite Infection control/ hand washing/ hygiene Visit 2- Continue teaching Discharge instructions- include additional information on smoking cessation , sternal dressing (sternal vac) Visit 3- Continue teaching- Cough and deep breathing, incision monitoring. Choose my plate Visit 4- Continue teaching- Discuss limitations Discuss how they are feeling Discuss progress toward goals Remaining visits- continue teaching and monitoring Incentive spirometry Q1 hr x 10, while awake, also use acapella device hourly whole awake Sternal Breast Bone Precautions: NO pushing or pulling, ( pt must use sternal pillow to support chest with all activities and with coughing ( takes up to 3 months breast bone to heal ) Daily incision care: ok to shower daily, no tub bath. Wash all incisions with liquid dial soap, clean wash cloth to each site, rinse and pat dry. Observe for any signs of infection, such as drainage which is dark yellow, pitt, green or foul smelling. Immediately report to the surgeon any drainage from the chest incision, or legs, and for any abnormal drainage from the chest tube sites. Notify surgeon if any temp >101.5 degrees F. When specialty dressing removed/ or if you do not have one, continue to shower daily as above, then rinse and pat incision dry and paint with betadine daily x 5 days. Allow steri strips to fall off if you have any. Avoid lotions, creams, salves, oils, etc. for the first month F/U appointment: as per PR instructions: PCP in 2 weeks, CV surgeon 2 weeks, Events Traffic Controller 3-4 weeks For any questions regarding incisions/ dressing / meds / post op care or above Symptoms, Tuesday 8am-5pm Heart & Vascular Surgery Office ( Dr. Alvarado & Dr. French), After Hours / Nights (5pm -8am) Weekends and Holidays Please call [facility] Charge Nurse I have seen patient Gordon Abdi on 09/21/16. My clinical findings support the need for the requested home health care services because: Patient has SOB Deconditioned w/ increased weakness I certify that my clinical findings support that this patient is homebound because: Post-op weakness Corrie Otero Sep 21, 2016 11:03
--- NOTE | 2016-09-21 11:08 | PD.CAR.PN ---
CVT Progress Note CVT: POD #: 6 Subjective/Hospital Course: 86/ male HX of aortic stenosis, increasing SOB x one month lower ext edema , underwent cardiac cath by Dr Soto / found to have vlave area 0.82/ peak gradient 52/ EF 55% , mild CAD PMH: AI/ / aflutter on xarelto at home , BV ICD, CKD stage 111, HTN BPH surgery: 09/15 Minimally invasive AVR with a 27 Stark Intuity tissue valve THONY, Percutaneous access left femoral artery and vein with Perclose closure 09/16 +9 kg , 3000 crystalloid, 2 units PRBC, 500 cellsaver up in chair, still SOB with exertion CXR noted, atelectasis , volume overload gentle diuresis tachycardic this am, received dose of IV lopressor will start low dose BB plan to transfer to stepdown unit 09/17 worsening renal indices/ nephrology consulted EKG intermittent V paced/ afib + edema left arm > right / US + basilic and axillary DVT PLT 57/ check HIT panel, restart xarelto in am when chest tube out / + leukoestrase in urine/ + blood / await culture/ received post op antibiotics 09/18/16 Stable course with stable creatinine. c/o exertional dyspnea, but better than yesterday. No BM, + flatus 09/19/16 Improving. BM x 2, less dyspnea, better appetite. 09/20/16 + BM, abd still somewhat distended, + bowel sounds continue GI motility meds on diuretics / still up 4 kg change to po in am HIT panel neg 09/21/16 unable to void/ + bladder scan urinary retention recheck UA consult urology had short run SVT, additional potassium given, mag / phos level pending will notify cardiology remains on low dose BB underlying chronic afib / flutter/ on xarelto Objective: Vital Signs Date Time Temp Pulse Resp B/P Pulse Ox O2 Delivery O2 Flow Rate FiO2 09/21/16 10:00 70 09/21/16 10:00 70 09/21/16 09:43 95 21 09/21/16 09:02 72 09/21/16 08:00 72 09/21/16 08:00 72 09/21/16 07:30 99.0 72 16 127/52 96 09/21/16 07:00 69 09/21/16 06:00 69 09/21/16 05:00 69 09/21/16 04:00 69 09/21/16 03:00 69 09/21/16 03:00 97.8 69 21 114/50 95 09/21/16 02:34 70 09/21/16 01:00 69 09/21/16 00:00 69 09/20/16 23:00 98.4 71 22 118/46 93 09/20/16 23:00 69 09/20/16 22:00 68 09/20/16 21:00 68 09/20/16 20:00 68 09/20/16 19:00 97.9 70 24 127/52 95 09/20/16 19:00 69 09/20/16 18:00 70 09/20/16 17:00 71 09/20/16 16:00 75 09/20/16 15:00 97.7 74 17 123/54 92 09/20/16 15:00 75 09/20/16 15:00 98 Room Air 09/20/16 14:00 74 09/20/16 13:02 69 09/20/16 12:00 71 Labs: Laboratory Tests Test 09/21/16 05:25 White Blood Count 14.3 TH/MM3 (4.0-11.0) Red Blood Count 3.30 MIL/MM3 (4.50-5.90) Hemoglobin 9.7 GM/DL (13.0-17.0) Hematocrit 29.4 % (39.0-51.0) Mean Corpuscular Volume 89.0 FL (80.0-100.0) Mean Corpuscular Hemoglobin 29.2 PG (27.0-34.0) Mean Corpuscular Hemoglobin 32.8 % Concent (32.0-36.0) Red Cell Distribution Width 14.2 % (11.6-17.2) Platelet Count 71 TH/MM3 (150-450) Mean Platelet Volume 10.5 FL (7.0-11.0) Neutrophils (%) (Auto) 67.2 % (16.0-70.0) Lymphocytes (%) (Auto) 26.2 % (9.0-44.0) Monocytes (%) (Auto) 5.9 % (0.0-8.0) Eosinophils (%) (Auto) 0.7 % (0.0-4.0) Basophils (%) (Auto) 0.0 % (0.0-2.0) Neutrophils # (Auto) 9.6 TH/MM3 (1.8-7.7) Lymphocytes # (Auto) 3.7 TH/MM3 (1.0-4.8) Monocytes # (Auto) 0.8 TH/MM3 (0-0.9) Eosinophils # (Auto) 0.1 TH/MM3 (0-0.4) Basophils # (Auto) 0.0 TH/MM3 (0-0.2) CBC Comment AUTO DIFF Differential Comment AUTO DIFF CONFIRMED Platelet Estimate LOW (NORMAL) Platelet Morphology Comment NORMAL (NORMAL) Sodium Level 143 MEQ/L (136-145) Potassium Level 3.5 MEQ/L (3.5-5.1) Chloride Level 104 MEQ/L (98-107) Carbon Dioxide Level 27.2 MEQ/L (21.0-32.0) Anion Gap 12 MEQ/L (5-15) Blood Urea Nitrogen 54 MG/DL (7-18) Creatinine 1.76 MG/DL (0.60-1.30) Estimat Glomerular Filtration 37 ML/MIN (>89) Rate Random Glucose 100 MG/DL (74-106) Calcium Level 7.7 MG/DL (8.5-10.1) Result Diagram: 09/21/1652409/21/16524 Telemetry: aflutter/ short burst svt (1) Aortic stenosis (2) S/P AVR (aortic valve replacement) Plan: ASA, BB afib rate 70-80/ gentle diuresis aggressive pum toileting OOB ambulate (3) Chronic kidney disease Plan: avoid nephrotoxins, Monitor indices improving indices/ nephrology following remains on bumex (4) aflutter Plan: xarelto/ low dose BB (5) Coronary artery disease Plan: ASA, BB statin (6) Hypertension Plan: controlled (7) DVT (deep venous thrombosis) Plan: xarelto (8) Thrombocytopenia Plan: neg HIT panel PLT improving (9) Urinary retention Plan: freeman cath reinserted/ recheck UA urology consult pending Corrie Otero Sep 21, 2016 11:08
[2016-09-21 11:26] LABS: MAGNESIUM 2.3 MG/DL (1.5-2.5)
--- NOTE | 2016-09-21 11:37 | PD.CONS ---
HPI Service Urology Consult Requested By Reason for Consult Urinary Retention Primary Care Physician Deejay Greenfield DO Diagnosis: History of Present Illness 86-year-old gentleman with history BPH who was admitted for aortic valve replacement surgery. Postoperatively the patient has failed two attempts to remove the Montoya catheter and a urology consult was placed for further recommendations. Patient reports that he is followed by Dr. Leos for obstructing BPH and is being managed medically with Flomax 0.4 mg daily. He reports that he had been doing well on this regimen prior to his present hospitalization. He denies a history of dysuria or gross hematuria. At the time of consultation the patient was resting quietly with an indwelling Montoya catheter draining monica urine. Review of Systems Constitutional: DENIES: Fever, Chills Respiratory: COMPLAINS OF: Shortness of breath (preoperatively) Gastrointestinal: COMPLAINS OF: Constipation, DENIES: Abdominal pain, Nausea, Vomiting Except as stated in HPI: all other systems reviewed are Neg Past Family Social History Past Medical History BPH Hypertension Cardiac valvular disease Atrial flutter Chronic kidney disease Past Surgical History Status post aortic valve replacement (present hospitalization) That is post cardiac ablative procedure for atrial flutter Status post placement of cardiac pacemaker Status post left shoulder surgery Status post cataract surgery Reported Medications Refer to EMR Allergies: Coded Allergies: No Known Allergies (Verified , 09/08/16) Active Ordered Medications Refer to EMR Family History Father with history brain tumor Social History Denies tobacco, alcohol or intravenous drug abuse Physical Exam Vital Signs Date Time Temp Pulse Resp B/P Pulse Ox O2 Delivery O2 Flow Rate FiO2 09/21/16 10:00 70 09/21/16 10:00 70 09/21/16 09:43 95 21 09/21/16 09:02 72 09/21/16 08:00 72 09/21/16 08:00 72 09/21/16 07:30 99.0 72 16 127/52 96 09/21/16 07:00 69 09/21/16 06:00 69 09/21/16 05:00 69 09/21/16 04:00 69 09/21/16 03:00 69 09/21/16 03:00 97.8 69 21 114/50 95 09/21/16 02:34 70 09/21/16 01:00 69 09/21/16 00:00 69 09/20/16 23:00 98.4 71 22 118/46 93 09/20/16 23:00 69 09/20/16 22:00 68 09/20/16 21:00 68 09/20/16 20:00 68 09/20/16 19:00 97.9 70 24 127/52 95 09/20/16 19:00 69 09/20/16 18:00 70 09/20/16 17:00 71 09/20/16 16:00 75 09/20/16 15:00 97.7 74 17 123/54 92 09/20/16 15:00 75 09/20/16 15:00 98 Room Air 09/20/16 14:00 74 09/20/16 13:02 69 09/20/16 12:00 71 Physical Exam GENERAL: This is a well-nourished, well-developed patient, in no apparent distress. SKIN: No rashes, ecchymoses or lesions. Cool and dry. HEAD: Atraumatic. Normocephalic. No temporal or scalp tenderness. EYES: Pupils equal round and reactive. Extraocular motions intact. No scleral icterus. No injection or drainage. ENT: Nose without bleeding, purulent drainage or septal hematoma. Throat without erythema, tonsillar hypertrophy or exudate. Uvula midline. Airway patent. NECK: Trachea midline. No JVD or lymphadenopathy. Supple, nontender, no meningeal signs. GASTROINTESTINAL: Abdomen soft, non-tender, nondistended. No hepato-splenomegaly , or palpable masses. No guarding. GENITOURINARY: Montoya catheter in place draining monica urine MUSCULOSKELETAL: No calf tenderness. Negative Homans sign bilaterally. NEUROLOGICAL: Awake and alert. Cranial nerves II through XII intact. Motor and sensory grossly within normal limits. Normal speech. Laboratory Tests Test 09/21/16 05:25 White Blood Count 14.3 Red Blood Count 3.30 Hemoglobin 9.7 Hematocrit 29.4 Mean Corpuscular Volume 89.0 Mean Corpuscular Hemoglobin 29.2 Mean Corpuscular Hemoglobin 32.8 Concent Red Cell Distribution Width 14.2 Platelet Count 71 Mean Platelet Volume 10.5 Neutrophils (%) (Auto) 67.2 Lymphocytes (%) (Auto) 26.2 Monocytes (%) (Auto) 5.9 Eosinophils (%) (Auto) 0.7 Basophils (%) (Auto) 0.0 Neutrophils # (Auto) 9.6 Lymphocytes # (Auto) 3.7 Monocytes # (Auto) 0.8 Eosinophils # (Auto) 0.1 Basophils # (Auto) 0.0 CBC Comment AUTO DIFF Differential Comment AUTO DIFF CONFIRMED Platelet Estimate LOW Platelet Morphology Comment NORMAL Sodium Level 143 Potassium Level 3.5 Chloride Level 104 Carbon Dioxide Level 27.2 Anion Gap 12 Blood Urea Nitrogen 54 Creatinine 1.76 Estimat Glomerular Filtration 37 Rate Random Glucose 100 Calcium Level 7.7 Phosphorus Level 3.2 Magnesium Level 2.3 Date/Time Procedure Status Source Growth 09/17/16 10:30 Urine Culture - Final Complete Urine Catheterized Urine NO GROWTH IN 48 HOURS. Result Diagram: 09/21/16 0525 09/21/16 0525 Imaging Last Impressions Chest X-Ray 09/18/16 0600 Signed Impressions: Service Date/Time: Sunday, September 18, 2016 03:47 - CONCLUSION: Hypoinflation. Mild cardiomegaly. Rad Waite Jr., MD Renal Ultrasound 09/18/16 0000 Signed Impressions: Service Date/Time: Sunday, September 18, 2016 10:09 - CONCLUSION: Evidence of chronic medical renal disease. Small amount of free fluid seen anterior to the bladder, etiology unknown. Corrie Benton MD Upper Extremity Ultrasound 09/17/16 0000 Signed Impressions: Service Date/Time: Saturday, September 17, 2016 11:02 - CONCLUSION: 1. Venous thrombosis as above. Johnnie Cutler MD Assessment and Plan Assessment and Plan Urologic impression: #1 urinary retention of probable transient nature #2 history BPH Recommendations: #1 continue with Flomax 0.4 mg by mouth daily. #2 continue with indwelling Montoya catheter to gravity drainage. #3 patient advised to follow up with his established urologist Dr. Leos sometime next week for reevaluation. Robi Beal MD Sep 21, 2016 11:37
[2016-09-21 13:36] LABS: BACTERIA, URINE FEW /hpf; BLOOD, URINE LARGE (NEG); GLUCOSE,URINE NEG (NEG); KETONE, URINE 10 mg/dL (NEG); MUCUS URINE FEW /lpf (OCC); NITRITE,URINE NEG (NEG); SQUAMOUS EPITHELIAL CELL URINE 1 /hpf (0-5); URINE COLOR YELLOW (YELLW/STRAW)
[2016-09-21 13:39] LABS: COMMENT (UR) CULTURE INDICATED; CULTURE IF INDICATED CULTURE INDICATED
--- NOTE | 2016-09-21 15:55 | PD.CONS ---
HPI Service Cardiology Consult Requested By CT surgery Reason for Consult Afib Primary Care Physician Deejay Greenfield DO History of Present Illness 86 y/o M with past medical history significant severe symptomatic aortic stenosis with preserved LV systolic function, chronic kidney disease baseline creatine 1.5, atrial flutter s/p PPM (Biotronic), HTN, BPH admitted for aortic wall replacement. He underwent successful minimally invasive AVR with a bioprosthesis on 09/16/2016. Postoperatively he developed a DVT, urinary retention, acute kidney injury, a Montoya catheter was inserted and he was consulted to nephrology, urology. Now he has had asymptomatic episodes of atrial fibrillation/AF with RVR, thus cardiology has been consulted for evaluation. Currently he has no complaints. Denies chest pain, palpitations or SOB. Telemetry shows atrial flutter. He in on chronic oral anticoagulation. PPM interrogation showed afib with sub-optimal LV threshold, appropriate changes made. Review of Systems Consitutional: DENIES: Fatigue, Fever, Chills, Weight gain, Weight loss Eyes: DENIES: Amaurosis Fugax, Change in vision HEENT: DENIES: Lightheadedness, Change in hearing Respiratory: DENIES: See HPI, Cough, Snoring, Shortness of breath, Wheezing, Sputum production Cardiovascular: DENIES: See HPI, Chest pain, Palpitations, Syncope, Tachycardia Gastrointestinal: DENIES: Nausea, Vomiting, Change in bowel habits, Reflux, Bloody stools, Melena Genitourinary: DENIES: Urinary incontinence, Difficulty voiding Integumentary: DENIES: Rash Neurologic: DENIES: Tingling or numbness, Memory problems, Poor Balance, Stroke symptoms Musculoskeletal: DENIES: Joint pain, Muscle pain, Limited range of motion, Back pain Psychiatric: DENIES: Anxiety, Depression, Sleep disturbances Hematologic: DENIES: Bruising tendencies, Bleeding tendencies Endocrine: DENIES: Weight gain, Weight loss, Thyroid disease Past Family Social History Allergies: Coded Allergies: No Known Allergies (Verified , 09/08/16) Past Medical History 1. Hypertension. 2. Ischemic heart disease 3. Aortic wall replacement 4. Aortic stenosis with regurgitation. 5. Atrial flutter 6. Chronic kidney disease 7. Prostatic hypertrophy. Past Surgical History Ablation for atrial flutter aortic valve replacement. History of cataract surgery Left shoulder repair. Pacemaker placement. Reported Medications Reported Meds & Active Scripts Active Reported Xarelto (Rivaroxaban) 15 Mg Tab 15 Mg PO DAILY Vitamin D (Cholecalciferol) 1,000 Unit Tab 1,000 Units PO DAILY Vitamin B-12 (Cyanocobalamin) 1,000 Mcg Subl 1,000 Mcg SL DAILY Tamsulosin (Tamsulosin HCl) 0.4 Mg Cap 0.4 Mg PO BID Potassium Chloride ER (Potassium Chloride) 10 Meq Cap 10 Meq PO BID Furosemide 40 Mg Tab 40 Mg PO DAILY Active Ordered Medications Current Medications Medications (Trade) Dose Ordered Sig/Cassie Route Start Time Stop Time Status Last Admin (NS Flush) 2 ml UNSCH PRN IV FLUSH 09/15/16 06:15 Sodium Chloride 2 ml 2 ml UNSCH PRN IV FLUSH 09/15/16 06:15 (Lr 1000 ml Inj) 500 ml @ 500 mls/hr Q1H PRN IV 09/15/16 14:27 09/16/16 00:30 (Aspirin Chew) 81 mg DAILY PO 09/16/16 09:00 09/20/16 10:54 (Protonix) 40 mg DAILY@06 PO 09/16/16 06:00 09/21/16 06:12 (Tylenol) 650 mg Q4H PRN PO 09/15/16 14:30 (Zofran Inj) 4 mg Q6H PRN IV PUSH 09/15/16 14:30 09/18/16 22:38 (Apresoline Inj) 10 mg Q4H PRN IV 09/15/16 14:30 (Lopressor Inj) 2.5 mg Q1H PRN IV PUSH 09/15/16 14:30 09/16/16 08:07 (Vitamin D3) 1,000 units DAILY PO 09/16/16 09:00 09/21/16 10:27 (Colace) 100 mg BID PO 09/16/16 09:00 09/21/16 10:26 (Theragran M Tab) 1 tab DAILY PO 09/16/16 09:00 09/21/16 10:26 (Miralax) 17 gm DAILY PO 09/17/16 09:00 09/21/16 10:31 (Senokot) 8.6 mg HS PO 09/16/16 21:00 09/20/16 22:41 (Fleets Enema (Adult)) 133 ml UNSCH PRN RECTAL 09/16/16 09:00 (D50w (Vial) Inj) 25 ml UNSCH PRN IV 09/16/16 09:00 (Glucagon Inj) 1 mg UNSCH PRN OTHER 09/16/16 09:00 (Lopressor) 12.5 mg BID PO 09/16/16 21:00 09/21/16 10:30 (Lipitor) 20 mg HS PO 09/16/16 21:00 09/20/16 22:41 (Pill Splitter) 1 ea UNSCH PRN OTHER 09/16/16 09:45 (Flomax) 0.4 mg BID@18 PO 09/16/16 18:44 09/21/16 10:28 (Reglan Inj) 10 mg Q8HR IV PUSH 09/18/16 14:00 09/21/16 15:25 (Xarelto) 15 mg DAILY PO 09/18/16 11:00 09/21/16 10:27 (Bumex Inj) 1 mg BID@ IV PUSH 09/19/16 18:00 09/21/16 10:32 (KCl) 30 meq Q12HR PO 09/19/16 11:45 09/21/16 10:24 Family History Noncontributory Social History No tobacco, alcohol or illicit drug use Physical Exam Vital Signs Vital Signs Date Time Temp Pulse Resp B/P Pulse Ox O2 Delivery O2 Flow Rate FiO2 09/21/16 15:00 69 09/21/16 15:00 98.6 70 17 111/49 93 09/21/16 14:00 69 09/21/16 13:00 74 09/21/16 12:00 69 09/21/16 12:00 69 09/21/16 11:00 98.9 70 16 142/51 96 09/21/16 11:00 98.9 70 16 142/51 97 09/21/16 11:00 70 09/21/16 10:00 70 09/21/16 10:00 70 09/21/16 09:43 95 21 09/21/16 09:02 72 09/21/16 08:00 72 09/21/16 08:00 72 09/21/16 07:30 99.0 72 16 127/52 96 09/21/16 07:00 69 09/21/16 06:00 69 09/21/16 05:00 69 09/21/16 04:00 69 09/21/16 03:00 69 09/21/16 03:00 97.8 69 21 114/50 95 09/21/16 02:34 70 09/21/16 01:00 69 09/21/16 00:00 69 09/20/16 23:00 98.4 71 22 118/46 93 09/20/16 23:00 69 09/20/16 22:00 68 09/20/16 21:00 68 09/20/16 20:00 68 09/20/16 19:00 97.9 70 24 127/52 95 09/20/16 19:00 69 09/20/16 18:00 70 09/20/16 17:00 71 09/20/16 16:00 75 Physical Exam GENERAL: Well-nourished, well-developed patient. SKIN: Warm and dry. HEAD: Normocephalic. EYES: No scleral icterus. No injection or drainage. NECK: Supple, trachea midline. No JVD or lymphadenopathy. CARDIOVASCULAR: Regular rate and rhythm without murmurs, gallops, or rubs. RESPIRATORY: Breath sounds equal bilaterally. No accessory muscle use. GASTROINTESTINAL: Abdomen soft, non-tender, nondistended. EXTREMITIES: No cyanosis, or edema. NEUROLOGICAL: Awake, alert, and oriented x 3. Non-focal. Laboratory Laboratory Tests Test 09/21/16 09/21/16 05:25 11:20 White Blood Count 14.3 Red Blood Count 3.30 Hemoglobin 9.7 Hematocrit 29.4 Mean Corpuscular Volume 89.0 Mean Corpuscular Hemoglobin 29.2 Mean Corpuscular Hemoglobin 32.8 Concent Red Cell Distribution Width 14.2 Platelet Count 71 Mean Platelet Volume 10.5 Neutrophils (%) (Auto) 67.2 Lymphocytes (%) (Auto) 26.2 Monocytes (%) (Auto) 5.9 Eosinophils (%) (Auto) 0.7 Basophils (%) (Auto) 0.0 Neutrophils # (Auto) 9.6 Lymphocytes # (Auto) 3.7 Monocytes # (Auto) 0.8 Eosinophils # (Auto) 0.1 Basophils # (Auto) 0.0 CBC Comment AUTO DIFF Differential Comment AUTO DIFF CONFIRMED Platelet Estimate LOW Platelet Morphology Comment NORMAL Sodium Level 143 Potassium Level 3.5 Chloride Level 104 Carbon Dioxide Level 27.2 Anion Gap 12 Blood Urea Nitrogen 54 Creatinine 1.76 Estimat Glomerular Filtration 37 Rate Random Glucose 100 Calcium Level 7.7 Phosphorus Level 3.2 Magnesium Level 2.3 Urine Color YELLOW Urine Turbidity HAZY Urine pH 5.0 Urine Specific [place] 1.008 Urine Protein 30 Urine Glucose (UA) NEG Urine Ketones 10 Urine Occult Blood LARGE Urine Nitrite NEG Urine Bilirubin NEG Urine Urobilinogen LESS THAN 2.0 Urine Leukocyte Esterase LARGE Urine RBC Urine WBC 87 Urine WBC Clumps MANY Urine Squamous Epithelial 1 Cells Urine Bacteria FEW Urine Mucus FEW Microscopic Urinalysis Comment CULTURE INDICATED Date/Time Procedure Status Source Growth 09/21/16 11:20 Urine Culture Received Urine Clean Catch Pending 09/17/16 10:30 Urine Culture - Final Complete Urine Catheterized Urine NO GROWTH IN 48 HOURS. Result Diagram: 09/21/16 0525 09/21/16 0525 Imaging Last Impressions Chest X-Ray 09/18/16 0600 Signed Impressions: Service Date/Time: Sunday, September 18, 2016 03:47 - CONCLUSION: Hypoinflation. Mild cardiomegaly. Rad Waite Jr., MD Renal Ultrasound 09/18/16 0000 Signed Impressions: Service Date/Time: Sunday, September 18, 2016 10:09 - CONCLUSION: Evidence of chronic medical renal disease. Small amount of free fluid seen anterior to the bladder, etiology unknown. Corrie Benton MD Upper Extremity Ultrasound 09/17/16 0000 Signed Impressions: Service Date/Time: Saturday, September 17, 2016 11:02 - CONCLUSION: 1. Venous thrombosis as above. Johnnie Cutler MD Assessment and Plan Problem List: (1) aflutter Assessment and Plan: Continue oral anticoagulation with Xarelto Increase Lopressor to 25mg PO BID Avoid electrolytes abnormalities Encourage ambulation and incentive spirometry Cont aggressive medical management for CAD (2) Aortic stenosis (3) S/P AVR (aortic valve replacement) (4) Chronic kidney disease (5) Coronary artery disease (6) Hypertension (7) DVT (deep venous thrombosis) (8) Thrombocytopenia (9) Urinary retention Eulogio Bryant MD Sep 21, 2016 15:54 Eulogio Bryant MD Sep 21, 2016 15:54 (3) S/P AVR (aortic valve replacement) (4) Chronic kidney disease (5) Coronary artery disease (6) Hypertension (7) DVT (deep venous thrombosis) (8) Thrombocytopenia (9) Urinary retention Eulogio Bryant MD Sep 21, 2016 15:54 Service Date/Time: Saturday, September 17, 2016 11:02 - CONCLUSION: 1. Venous thrombosis as above. Johnnie Cutler MD Assessment and Plan Problem List: (1) Aortic stenosis (2) S/P AVR (aortic valve replacement) (3) Chronic kidney disease (4) aflutter (5) Coronary artery disease (6) Hypertension (7) DVT (deep venous thrombosis) (8) Thrombocytopenia (9) Urinary retention Eulogio Bryant MD Sep 21, 2016 15:54
--- NOTE | 2016-09-21 16:38 | HHI.NPPN ---
Subjective General Problems: Anemia, Edema, Heart Disease Renal Failure: Acute, Stage III History of Present Illness 86-year-old male with past medical history of. Ischemic heart disease, chronic kidney disease post aortic wall replacement. Aortic stenosis, atrial flutter. Hypertension, benign prostatic hypertrophy, who was admitted for aortic wall replacement. I was called to see the patient because of elevated BUN and creatinine. The patient has known history of chronic kidney disease, his baseline creatinine is around 1.5 and he was admitted on and his creatinine was 1.8 . On September 15, he underwent Minimally invasive aortic wall replacement. Additional Remarks Patient now alert, sitting on chair, clinically same, breathing is better. Review of Systems General Constitutional: Fatigue Cardiovascular Cardiac: Edema, HA[place]INS Objective Data Data 09/20/16 09/21/16 18:59 06:59 Intake Total 720 ml 680 ml Output Total 350 ml 1240 ml Balance 370 ml -560 ml Intake Oral 720 ml 680 ml Output Urine Total 350 ml 1240 ml Bladder Scan Volume Amount 226 ml # Bowel Movements 1 Vital Signs Date Time Temp Pulse Resp B/P Pulse Ox O2 Delivery O2 Flow Rate FiO2 09/21/16 16:00 73 09/21/16 15:00 69 09/21/16 15:00 98.6 70 17 111/49 93 09/21/16 14:00 69 09/21/16 13:00 74 09/21/16 12:00 69 09/21/16 12:00 69 09/21/16 11:00 98.9 70 16 142/51 96 09/21/16 11:00 98.9 70 16 142/51 97 09/21/16 11:00 70 09/21/16 10:00 70 09/21/16 10:00 70 09/21/16 09:43 95 21 09/21/16 09:02 72 09/21/16 08:00 72 09/21/16 08:00 72 09/21/16 07:30 99.0 72 16 127/52 96 09/21/16 07:00 69 09/21/16 06:00 69 09/21/16 05:00 69 09/21/16 04:00 69 09/21/16 03:00 69 09/21/16 03:00 97.8 69 21 114/50 95 09/21/16 02:34 70 09/21/16 01:00 69 09/21/16 00:00 69 09/20/16 23:00 98.4 71 22 118/46 93 09/20/16 23:00 69 09/20/16 22:00 68 09/20/16 21:00 68 09/20/16 20:00 68 09/20/16 19:00 97.9 70 24 127/52 95 09/20/16 19:00 69 09/20/16 18:00 70 09/20/16 17:00 71 -: 09/21/16 0525 09/21/16 0525 Microbiology 09/21/16 Urine Culture, Received Pending Physical Exam General Appearance: No Acute Distress, Comfortable Eyes Eye Exam: Pupils Equal Neck Neck Exam: Neck Supple Pulmonary Resp Exam: Breath Sounds Equal, No Distress, Rhonchi, Decreased Bases, Diminished Breath Sounds Cardiology CV Exam: Regular Gastrointestinal/Abdomen GI Exam: Soft, Non-Tender, Distended Integumentary Skin Exam: Clear Extremeties Extremities Exam: Moderate Edema, Pitting Edema Neurologic Neuro Exam: Alert, Awake Psychiatric Psych Exam: Appropriate Responses Assessment/Plan Assessment Summary: MORRO/Acute Renal Failure, CKD Stage III Problem List: (1) Acute renal failure Plan: Patient has chronic kidney disease, Baseline Creatinine is 1.5, Now has some improvement in the Creatinine, 1.7. Bumex 1 mg q 12 Urine culture negative US showed CKD SPEP, negative for any abnormal band. Continue Bumex, follow urine out put and BMP. Avoid Nephrotoxins. (2) S/P AVR (aortic valve replacement) Plan: s/p surgery (3) Thrombocytopenia Plan: HIT neg improving. Da Antoine MD Sep 21, 2016 16:38
[2016-09-21] MEDS: ATORVASTATIN 20 MG TAB PO SCH (21:07)
[2016-09-21] MEDS: SENNOSIDES 8.6 MG TAB PO SCH (21:07)
[2016-09-22] VITALS (13 sets, daily range): BP systolic 108–129; BP diastolic 52–53; PULSE 68–78; RESP 16–19; TEMP 97.8–98.1; O2SAT 94–97
[2016-09-22] MEDS: METOCLOPRAMIDE HCL 10 MG/2 ML VIAL IV PUSH SCH (05:07)
[2016-09-22] MEDS: PANTOPRAZOLE SOD 40 MG DELAYED RELEASE TAB PO SCH (05:07)
[2016-09-22] MEDS: INSULIN ASPART SUPPLEMENTAL SCALE SQ SCH ×2 (05:07→11:00)
[2016-09-22 06:36] LABS: AUTOMATED NEUTROPHIL # 7.2 TH/MM3 (1.8-7.7); EOSINOPHIL # 0.2 TH/MM3 (0-0.4); EOSINOPHIL % 1.8 % (0.0-4.0); HEMATOCRIT 28.1 % (39.0-51.0); LYMPH % 28.7 % (9.0-44.0); LYMPHOCYTE # 3.3 TH/MM3 (1.0-4.8); MEAN CELL VOLUME 87.8 FL (80.0-100.0); MEAN CORPUSCULAR HGB CONC 33.1 % (32.0-36.0); MONO % 7.4 % (0.0-8.0); NEUT % 62.1 % (16.0-70.0); PLATELET COUNT 75 TH/MM3 (150-450); WHITE BLOOD COUNT 11.7 TH/MM3 (4.0-11.0)
[2016-09-22 06:45] LABS: HEMO FLAGS AUTO DIFF
[2016-09-22 06:46] LABS: BICARBONATE 28.4 MEQ/L (21.0-32.0); POTASSIUM 3.4 MEQ/L (3.5-5.1)
[2016-09-22] MEDS: MULTIVITAMINS/MINERALS THERAPEUTIC TAB PO SCH (08:42)
[2016-09-22] MEDS: ASPIRIN 81 MG CHEW TAB PO SCH (08:43)
[2016-09-22] MEDS: RIVAROXABAN 15 MG TAB PO SCH (08:43)
[2016-09-22] MEDS: CHOLECALCIFEROL (VIT D3) 1000 UNIT TAB PO SCH (08:43)
[2016-09-22] MEDS: BUMETANIDE INJ 1 MG/4 ML VIAL IV PUSH SCH (08:43)
[2016-09-22] MEDS: METOPROLOL TARTRATE 25 MG TAB PO SCH (08:43)
[2016-09-22] MEDS: POLYETHYLENE GLYCOL 17 GM PKG PO SCH (08:43)
[2016-09-22] MEDS: POTASSIUM CHLORIDE 10 MEQ CONTROLLED RELEASE TAB PO SCH (08:43)
[2016-09-22] MEDS: TAMSULOSIN HCL 0.4 MG CAP PO SCH (08:43)
[2016-09-22] MEDS: DOCUSATE SODIUM 100 MG CAP PO SCH (08:44)
[2016-09-22 08:57] LABS: SCAN/DIFF AUTO DIFF CONFIRMED
[2016-09-22] MEDS ORDERED: CIPROFLOXACIN 250 MG TAB PO SCH (11:00)
[2016-09-22] MEDS ORDERED: POTASSIUM CHLORIDE 10 MEQ CONTROLLED RELEASE TAB PO ONE (11:00)
[2016-09-22] MEDS ORDERED: CIPR250T52 PO (11:31)
[2016-09-22] MEDS ORDERED: POTA-163 PO (11:31)
[2016-09-22] MEDS ORDERED: METO25TA3 PO (11:31)
[2016-09-22] MEDS ORDERED: BUME1TAB26 PO (11:31)
[2016-09-22] MEDS ORDERED: DOCU1CAP39 PO (11:31)
[2016-09-22] MEDS ORDERED: Aspirin Chew PO (11:31)
[2016-09-22] MEDS ORDERED: THERM PO (11:31)
--- NOTE | 2016-09-22 11:47 | HHI.DS ---
Discharge Summary Admission Date Sep 15, 2016 at 05:35 Discharge Date: Sep 22, 2016 Admitting Diagnosis severe aortic stenosis (1) aflutter Diagnosis: Principal (2) Thrombocytopenia Diagnosis: Secondary (3) DVT (deep venous thrombosis) Diagnosis: Secondary (4) Acute renal failure Diagnosis: Principal (5) Urinary retention Diagnosis: Secondary (6) S/P AVR (aortic valve replacement) Diagnosis: Secondary (7) Hypertension Diagnosis: Principal (8) Aortic stenosis Diagnosis: Principal Procedures Minimally invasive AVR with a 27 Stark Intuity tissue valve 09/15 THONY Percutaneous access left femoral artery and vein with Perclose closure Brief History 86/ male HX of aortic stenosis, increasing SOB x one month lower ext edema , underwent cardiac cath by Dr Soto / found to have vlave area 0.82/ peak gradient 52/ EF 55% , mild CAD PMH: AI/ / aflutter on xarelto at home , BV ICD, CKD stage 111, HTN BPH surgery: 09/15 Minimally invasive AVR with a 27 Stark Intuity tissue valve THONY, Percutaneous access left femoral artery and vein with Perclose closure CBC/BMP: 09/22/16 0456 09/22/16 0456 Significant Findings Laboratory Tests Test 09/20/16 09/20/16 09/21/16 09/21/16 03:38 10:40 05:25 11:20 Blood Urea Nitrogen 54 MG/DL (7-18) 54 MG/DL (7-18) Creatinine 1.83 MG/DL 1.76 MG/DL (0.60-1.30) (0.60-1.30) Estimat Glomerular Filtration 35 ML/MIN (>89) 37 ML/MIN (>89) Rate Calcium Level 7.8 MG/DL 7.7 MG/DL (8.5-10.1) (8.5-10.1) White Blood Count 16.6 TH/MM3 14.3 TH/MM3 (4.0-11.0) (4.0-11.0) Red Blood Count 3.70 MIL/MM3 3.30 MIL/MM3 (4.50-5.90) (4.50-5.90) Hemoglobin 10.7 GM/DL 9.7 GM/DL (13.0-17.0) (13.0-17.0) Hematocrit 32.9 % 29.4 % (39.0-51.0) (39.0-51.0) Platelet Count 78 TH/MM3 71 TH/MM3 (150-450) (150-450) Neutrophils # (Auto) 11.1 TH/MM3 9.6 TH/MM3 (1.8-7.7) (1.8-7.7) Platelet Estimate LOW (NORMAL) LOW (NORMAL) Urine Turbidity HAZY (CLEAR) Urine Protein 30 mg/dL (NEG-TRACE) Urine Ketones 10 mg/dL (NEG) Urine Occult Blood LARGE (NEG) Urine Leukocyte Esterase LARGE (NEG) Urine WBC 87 /hpf (0-5) Urine WBC Clumps MANY (NONE) Urine Bacteria FEW /hpf (NONE) Urine Mucus FEW /lpf (OCC) Test 09/22/16 04:56 White Blood Count 11.7 TH/MM3 (4.0-11.0) Red Blood Count 3.20 MIL/MM3 (4.50-5.90) Hemoglobin 9.3 GM/DL (13.0-17.0) Hematocrit 28.1 % (39.0-51.0) Platelet Count 75 TH/MM3 (150-450) Potassium Level 3.4 MEQ/L (3.5-5.1) Chloride Level 108 MEQ/L (98-107) Blood Urea Nitrogen 46 MG/DL (7-18) Creatinine 1.72 MG/DL (0.60-1.30) Estimat Glomerular Filtration 38 ML/MIN (>89) Rate Calcium Level 7.8 MG/DL (8.5-10.1) Imaging Last Impressions Chest X-Ray 09/18/16 0600 Signed Impressions: Service Date/Time: Sunday, September 18, 2016 03:47 - CONCLUSION: Hypoinflation. Mild cardiomegaly. Rad Waite Jr., MD Renal Ultrasound 09/18/16 0000 Signed Impressions: Service Date/Time: Sunday, September 18, 2016 10:09 - CONCLUSION: Evidence of chronic medical renal disease. Small amount of free fluid seen anterior to the bladder, etiology unknown. Corrie Benton MD Upper Extremity Ultrasound 09/17/16 0000 Signed Impressions: Service Date/Time: Saturday, September 17, 2016 11:02 - CONCLUSION: 1. Venous thrombosis as above. Johnnie Cutler MD PE at Discharge GENERAL: SKIN: Warm and dry.incision intact right chest area left groin incision healing well HEAD: Normocephalic. EYES: No scleral icterus. No injection or drainage. NECK: Supple, trachea midline. No JVD or lymphadenopathy. CARDIOVASCULAR: irregular rate and rhythm without murmurs, gallops, or rubs. general edema lower ext improving RESPIRATORY: diminished in bases Breath sounds equal bilaterally. No accessory muscle use. GASTROINTESTINAL: Abdomen soft, non-tender, nondistended. MUSCULOSKELETAL: No cyanosis, or edema. BACK: Nontender without obvious deformity. No CVA tenderness. Hospital Course 09/16 +9 kg , 3000 crystalloid, 2 units PRBC, 500 cellsaver up in chair, still SOB with exertion CXR noted, atelectasis , volume overload gentle diuresis tachycardic this am, received dose of IV lopressor will start low dose BB plan to transfer to stepdown unit 09/17 worsening renal indices/ nephrology consulted EKG intermittent V paced/ afib + edema left arm > right / US + basilic and axillary DVT PLT 57/ check HIT panel, restart xarelto in am when chest tube out / + leukoestrase in urine/ + blood / await culture/ received post op antibiotics 09/18/16 Stable course with stable creatinine. c/o exertional dyspnea, but better than yesterday. No BM, + flatus 09/19/16 Improving. BM x 2, less dyspnea, better appetite. 09/20/16 + BM, abd still somewhat distended, + bowel sounds continue GI motility meds on diuretics / still up 4 kg change to po in am HIT panel neg 09/21/16 unable to void/ + bladder scan urinary retention recheck UA consult urology had short run SVT, additional potassium given, mag / phos level pending will notify cardiology remains on low dose BB underlying chronic afib / flutter/ on xarelto 09/22 on room air, remains in afib / intermittent v paced/ rate controlled BP stable , still has some lower ext edema / improving renal indices stable will leave freeman cath in place/ with leg bag/ has f/u with Dr Leos next week Pt Condition on Discharge: Fair Discharge Disposition: Disch w/ Home Health Serv Discharge Instructions DIET: Follow Instructions for: Heart Healthy Diet Activities you can perform: Full Weight Bearing, Shower Only-No Bath Activities to avoid: Strenuous Activity, Driving Additional Activity Instructio: no lifting > 8lbs or gallon of milk Follow up Referrals: Cardiology PCP Follow-up Surgical Urology - 1 Week with Brian Leos MD New Orders: 2D ECHO - 2 Weeks BASIC METABOLIC PROF - 2 Weeks CBC NO DIFF - 2 Weeks X-RAY CHEST PA & LAT - 2 Weeks New Medications: Bumetanide (Bumex) 1 Mg Tab 1 MG PO BID take one tab twice a day x 7 days, then once a day, take with potassium edema #35 Ref 1 TAB Potassium Chloride ER (Potassium Chloride ER) 20 Meq Tab 20 MEQ PO BID take one tab twice a day x 7 days, then take once a day / take with bumex Electrolyte Replacement #35 Ref 1 TAB Ciprofloxacin (Cipro) 250 Mg Tab 250 MG PO Q12HR uti #14 TAB Docusate Sodium (Dok) 100 Mg Cap 100 MG PO BID Constipation #60 CAP Metoprolol Tartrate (Metoprolol Tartrate) 25 Mg Tab 25 MG PO BID Blood Pressure Management #60 Ref 2 TAB Multiple Vitamins W/ Minerals (Thera M Plus) 1 Tab 1 TAB PO DAILY multi vitamin #30 TAB ([Aspirin Chew]) 81 MG CHEW 81 MG PO DAILY #100 Ref 2 TAB.CHEW Continued Medications: Cholecalciferol (Vitamin D) 1,000 Unit Tab 1000 UNITS PO DAILY Nutritional Supplement Ref 0 BOTTLE Cyanocobalamin (Vitamin B-12) 1,000 Mcg Subl 1000 MCG SL DAILY Nutritional Supplement Ref 0 TAB.SL Rivaroxaban (Xarelto) 15 Mg Tab 15 MG PO DAILY Blood Clot Prevention Ref 0 TAB Tamsulosin (Tamsulosin) 0.4 Mg Cap 0.4 MG PO BID Manage Prostate Problems Ref 0 CAP Discontinued Medications: Furosemide (Furosemide) 40 Mg Tab 40 MG PO DAILY Ref 0 TAB Potassium Chloride ER (Potassium Chloride ER) 10 Meq Cap 10 MEQ PO BID Electrolyte Replacement Ref 0 CAP Corrie Otero Sep 22, 2016 11:47
[2016-09-22] MEDS ORDERED: POTASSIUM CHLORIDE 25 MEQ EFFERVESCENT TAB PO ONE (12:00)
--- NOTE | 2016-09-22 12:02 | HHI.NPPN ---
Subjective General Problems: Anemia, Edema, Heart Disease Renal Failure: Acute, Stage III History of Present Illness 86-year-old male with past medical history of. Ischemic heart disease, chronic kidney disease post aortic wall replacement. Aortic stenosis, atrial flutter. Hypertension, benign prostatic hypertrophy, who was admitted for aortic wall replacement. I was called to see the patient because of elevated BUN and creatinine. The patient has known history of chronic kidney disease, his baseline creatinine is around 1.5 and he was admitted on and his creatinine was 1.8 . On September 15, he underwent Minimally invasive aortic wall replacement. Additional Remarks Patient now alert, sitting on chair, no SOB, edema is decreasing. Review of Systems General Constitutional: Fatigue Cardiovascular Cardiac: Edema, HAWKINS Objective Data Data 09/21/16 09/22/16 19:00 07:00 Intake Total 600 ml Output Total 750 ml 675 ml Balance -750 ml -75 ml Intake Oral 600 ml Output Urine Total 750 ml 675 ml # Bowel Movements 3 Vital Signs Date Time Temp Pulse Resp B/P Pulse Ox O2 Delivery O2 Flow Rate FiO2 09/22/16 08:00 98.1 69 16 108/53 96 09/22/16 08:00 69 09/22/16 06:00 69 09/22/16 05:00 69 09/22/16 04:00 69 09/22/16 03:00 69 09/22/16 03:00 97.8 69 19 129/52 94 09/22/16 02:00 69 09/22/16 01:00 70 09/22/16 00:00 69 09/21/16 23:00 69 09/21/16 23:00 98.1 69 19 117/53 93 09/21/16 22:00 68 09/21/16 21:00 68 09/21/16 20:00 68 09/21/16 19:00 98.5 70 20 137/56 95 09/21/16 19:00 72 09/21/16 18:00 72 09/21/16 17:28 93 21 09/21/16 17:00 69 09/21/16 16:00 73 09/21/16 15:00 69 09/21/16 15:00 98.6 70 17 111/49 93 09/21/16 14:00 69 09/21/16 13:00 74 -: 09/22/16 0456 09/22/16 0456 Physical Exam General Appearance: No Acute Distress, Comfortable Eyes Eye Exam: Pupils Equal Neck Neck Exam: Neck Supple Pulmonary Resp Exam: Breath Sounds Equal, No Distress, Rhonchi, Decreased Bases, Diminished Breath Sounds Cardiology CV Exam: Regular Gastrointestinal/Abdomen GI Exam: Soft, Non-Tender, Distended Integumentary Skin Exam: Clear Extremeties Extremities Exam: Moderate Edema, Pitting Edema Neurologic Neuro Exam: Alert, Awake Psychiatric Psych Exam: Appropriate Responses Assessment/Plan Assessment Summary: MORRO/Acute Renal Failure, CKD Stage III Problem List: (1) Acute renal failure Plan: Patient has chronic kidney disease, Baseline Creatinine is 1.5, Now the Creatinine is stable at 1.7. Bumex 1 mg q 12 Urine culture negative US showed CKD SPEP, negative for any abnormal band. Continue Bumex, follow urine out put and BMP. Now for D/C, to follow as out patient in 3-4 weeks. (2) S/P AVR (aortic valve replacement) Plan: s/p surgery (3) Thrombocytopenia Plan: HIT neg improving. Da Antoine MD Sep 22, 2016 12:02
== END 2016-09-22 13:26 | disposition home health service (06) | DRG 220 ==
LOC: HSDI 09-15 05:35 → HCVR 09-15 15:34 → HCIN 09-16 10:12 → HCIS 09-16 10:58 → HCIN 09-16 10:59
PROVIDERS: ADMIT Thoracic Surgery (Cardiothoracic Vascular Surgery); ATTEND Thoracic Surgery (Cardiothoracic Vascular Surgery)
PROC: B246ZZ4 Ultrasonography of Right and Left Heart, Transesophageal (ICD-10-PCS; 2016-09-15)
PROC: 30233N1 Transfusion of Nonautologous Red Blood Cells into Peripheral Vein, Percutaneous Approach (ICD-10-PCS; 2016-09-15)
PROC: 02RF08Z Replacement of Aortic Valve with Zooplastic Tissue, Open Approach (ICD-10-PCS; principal; 2016-09-15 07:14)
PROC: 5A1221Z Performance of Cardiac Output, Continuous (ICD-10-PCS; 2016-09-15 07:14)
PROC: 0T9B70Z Drainage of Bladder with Drainage Device, Via Natural or Artificial Opening (ICD-10-PCS; 2016-09-17)
DX: I35.0 Nonrheumatic aortic (valve) stenosis (principal); N17.9 Acute kidney failure, unspecified; I82.A12 Acute embolism and thrombosis of left axillary vein; I48.92 Unspecified atrial flutter; D69.6 Thrombocytopenia, unspecified; N18.3 Chronic kidney disease, stage 3 (moderate); E87.70 Fluid overload, unspecified; I82.612 Acute embolism and thrombosis of superficial veins of left upper extremity; J98.11 Atelectasis; I12.9 Hypertensive chronic kidney disease with stage 1 through stage 4 chronic kidney disease, or unspecified chronic kidney disease; N40.1 Benign prostatic hyperplasia with lower urinary tract symptoms; R33.8 Other retention of urine; Z86.718 Personal history of other venous thrombosis and embolism; Z95.0 Presence of cardiac pacemaker; D64.9 Anemia, unspecified; I25.10 Atherosclerotic heart disease of native coronary artery without angina pectoris; R00.0 Tachycardia, unspecified; I48.2 Chronic atrial fibrillation; Z79.02 Long term (current) use of antithrombotics/antiplatelets
CPT/HCPCS: 36430; 71010; 76775; 76937; 80048; 81001; 82948; 83735; 84100; 84165; 85007; 85014; 85025; 85027; 85610; 86022; 86850; 86900; 86901; 86920; 87086; 88305; 88311; 93005; 93318; 93971; 94002; 94150; 94640; 94664; 94667; 94668; J0131; J0282; J0690; J1644; J1815; J1940; J2150; J2250; J2370; J2405; J2720; J2765; J2930; J3010; J3370; J3475; J3480; J7040; J7050; J7120; P9016; P9045; P9047

== ENCOUNTER → 2016-09-08 | Outpatient (CLI) | payer MEDICARE ==
[~2016-09-08] MED LIST changes: +ASPI81CH CHEW; +Aspirin Chew PO; +BUME1TAB26 PO; +CIPR250T52 PO; +DOCU1CAP39 PO; +METO25TA3 PO; +POTA-163 PO; +THERM PO
[2016-09-08 12:07] LABS: PROTHROMBIN TIME - PATIENT 11.4 SEC (9.8-11.6)
[2016-09-08 12:08] LABS: AUTOMATED NEUTROPHIL # 3.6 TH/MM3 (1.8-7.7); BASOPHIL % 0.3 % (0.0-2.0); EOSINOPHIL # 0.2 TH/MM3 (0-0.4); EOSINOPHIL % 2.6 % (0.0-4.0); HEMATOCRIT 38.5 % (39.0-51.0); HEMO FLAGS DIFF FINAL; LYMPH % 47.6 % (9.0-44.0); LYMPHOCYTE # 3.9 TH/MM3 (1.0-4.8); MEAN CELL VOLUME 85.3 FL (80.0-100.0); MEAN CORPUSCULAR HEMOGLOBIN 29.7 PG (27.0-34.0); MEAN CORPUSCULAR HGB CONC 34.8 % (32.0-36.0); MONO % 5.8 % (0.0-8.0); NEUT % 43.7 % (16.0-70.0); PLATELET COUNT 151 TH/MM3 (150-450); RED BLOOD COUNT 4.52 MIL/MM3 (4.50-5.90); RED CELL DISTRIBUTION WIDTH 13.6 % (11.6-17.2); WHITE BLOOD COUNT 8.2 TH/MM3 (4.0-11.0)
[2016-09-08 12:21] LABS: BICARBONATE 33.8 MEQ/L (21.0-32.0); POTASSIUM 3.8 MEQ/L (3.5-5.1)
[2016-09-08 13:27] LABS: BLOOD, URINE NEG (NEG); COMMENT (UR) CULT NOT INDICATED; CULTURE IF INDICATED CULT NOT INDICATED; GLUCOSE,URINE NEG (NEG); HYALINE CAST, URINE 1 /lpf (RARE); KETONE, URINE NEG (NEG); MUCUS URINE FEW /lpf (OCC); NITRITE,URINE NEG (NEG); PH, URINE 6.5 (5.0-8.5); URINE COLOR YELLOW (YELLW/STRAW)
[2016-09-08 13:52] LABS: MRSA PCR NEGATIVE (NEGATIVE); STAPH AUREUS PCR POSITIVE (NEGATIVE)
--- NOTE | 2016-09-22 09:39 | RSPPFT ---
DATE OF PROCEDURE: 09/07/16 COMMENTS: Spirometry with FVC of 1.9 predicted 3.8, FEV1 of 1.5 predicted 2.9, FEV1/FVC ratio 71% predicted 76%. IMPRESSION: On the basis of the above, patient has a moderately severe restrictive lung defect. Lung volumes would be helpful for further clarification if clinically indicated.
== END ==
LOC: CPRE 11:04
PROVIDERS: ATTEND Thoracic Surgery (Cardiothoracic Vascular Surgery)
DX: Z01.812 Encounter for preprocedural laboratory examination (principal); I35.0 Nonrheumatic aortic (valve) stenosis
CPT/HCPCS: 36415; 80048; 81001; 85025; 85610; 87640; 87641

== ENCOUNTER 2016-10-25 14:09 | Observation (INO) | payer MEDICARE ==
[~2016-10-25] VITALS: Ht 177.8 cm; Wt 90.0 kg
[~2016-10-25 14:09] MED LIST changes: +Aspirin Chew PO; +BUME1TAB26 PO; +CIPR250T52 PO; +DOCU1CAP39 PO; -FURO40TA PO; +METO25TA3 PO; +POTA-163 PO; -POTA10CA PO; +THERM PO
[2016-10-25 14:54] VITALS: BP 139/62; PULSE 94; RESP 20; TEMP 98.1; O2SAT 94
--- NOTE | 2016-10-25 14:55 | PD ---
HPI Chief Complaint: Numbness/Tingling Time Seen by Provider: 14:55 Travel History International Travel<30 days: No Contact w/Intl Traveler<30days: No History of Present Illness HPI 86 year old male presents to the emergency department for evaluation of neurological event. Patient states that around 2 PM, he had sudden inability to raise his right arm. He also states he was unable to speak. He states it lasted for approximately 10 minutes and then resolved completely on its own. He denies any complaints at this time. No headache. No fevers or chills. No chest pain or shortness of breath. No abdominal pain. No nausea, vomiting, diarrhea. Patient reports each show valve replacement in August. His sewer head is Dr. Burrell. Dr. French did the surgery. He was also altered for 5 days after the surgery, but has been on it since. Patient also reports history of pacemaker. Patient denies any history of CVA or TIA. PFSH Past Medical History Heart Rhythm Problems: Yes Cancer: No Cardiovascular Problems: Yes (PACEMAKER [employer]) Diabetes: No Diminished Hearing: No Endocrine: No Gastrointestinal Disorders: Yes Genitourinary: Yes (ENLARGED PROSTATE) Hepatitis: No Hiatal Hernia: No Hypertension: Yes Immune Disorder: No Kidney Stones: Yes (REMOVED) Musculoskeletal: No Neurologic: No Psychiatric: No Reproductive: No Respiratory: No Thyroid Disease: No Past Surgical History AICD: No Cardiac Surgery: Yes (aicd PACEMAKER [employer]) Eye Surgery: Yes (CATARACTS BILAT.) Joint Replacement: No Pacemaker: Yes ([employer]) Social History Alcohol Use: No Tobacco Use: No Substance Use: No Allergies-Medications (Allergen,Severity, Reaction): Uncoded Allergies: MRI PRECAUTION/PACEMAKER (Adverse Reaction, Severe, MRI PRECAUTION/ PACEMAKER, 10/25/16) PT HAS NON COMPATIBLE BIOTRONIK PACEMAKER. VSV 10/25/16 Reported Meds & Prescriptions Reported Meds & Active Scripts Active Potassium Chloride ER (Potassium Chloride) 20 Meq Tab 20 Meq PO BID take one tab twice a day x 7 days, then take once a day / take with bumex Bumex (Bumetanide) 1 Mg Tab 1 Mg PO BID take one tab twice a day x 7 days, then once a day, take with potassium Thera M Plus (Multivitamins/Minerals Therapeutic) 1 Tab 1 Tab PO DAILY Metoprolol Tartrate 25 Mg Tab 25 Mg PO BID Reported Aspirin 81 Mg Chew 81 Mg CHEW DAILY Xarelto (Rivaroxaban) 15 Mg Tab 15 Mg PO DAILY Vitamin D (Cholecalciferol) 1,000 Unit Tab 1,000 Units PO DAILY Vitamin B-12 (Cyanocobalamin) 1,000 Mcg Subl 1,000 Mcg SL DAILY Tamsulosin (Tamsulosin HCl) 0.4 Mg Cap 0.4 Mg PO BID Review of Systems Except as stated in HPI: all other systems reviewed are Neg Physical Exam Narrative GENERAL: Well-nourished, well-developed elderly male patient, afebrile. SKIN: Focused skin assessment warm/dry. HEAD: Normocephalic. Atraumatic. EYES: No scleral icterus. No injection or drainage. NECK: Supple, trachea midline. No JVD or lymphadenopathy. CARDIOVASCULAR: Regular rate and rhythm without murmurs, gallops, or rubs. RESPIRATORY: Breath sounds equal bilaterally. No accessory muscle use. Lungs sounds are clear to auscultation. GASTROINTESTINAL: Abdomen soft, non-tender, nondistended. MUSCULOSKELETAL: No cyanosis, or edema. Bilateral upper and lower extremity strength 5/5. All extremities are neurovascularly intact. NEUROLOGICAL: Awake and alert. Cranial nerves II through XII intact. Motor and sensory grossly within normal limits. Five out of 5 muscle strength in all muscle groups. Normal speech. Data Data Last Documented VS Vital Signs Date Time Temp Pulse Resp B/P Pulse Ox O2 Delivery O2 Flow Rate FiO2 10/25/16 14:57 99 10/25/16 14:54 98.1 94 20 139/62 Orders Electrocardiogram (10/25/16 14:53) Prothrombin Time / Inr (Pt) (10/25/16 14:53) Act Partial Throm Time (Ptt) (10/25/16 14:53) Complete Blood Count With Diff (10/25/16 14:53) Comprehensive Metabolic Panel (10/25/16 14:53) Creatine Kinase (Cpk) (10/25/16 14:53) Troponin I (10/25/16 14:53) Ct Brain W/O Iv Contrast(Rout) (10/25/16 14:53) Chest, Single Ap (10/25/16 14:53) Ecg Monitoring (10/25/16 14:53) Iv Access Insert/Monitor (10/25/16 14:53) Oximetry (10/25/16 14:53) Sodium Chloride 0.9% Flush (Ns Flush) (10/25/16 15:00) Mri Brain W/O Contrast (10/25/16 ) Mra Brain W/O Contrast (Cow) (10/25/16 ) Us Carotid Arteries Comp Bilat (10/25/16 ) Labs Laboratory Tests Test 10/25/16 15:00 White Blood Count 7.8 TH/MM3 Red Blood Count 3.80 MIL/MM3 Hemoglobin 10.5 GM/DL Hematocrit 32.5 % Mean Corpuscular Volume 85.4 FL Mean Corpuscular Hemoglobin 27.6 PG Mean Corpuscular Hemoglobin 32.4 % Concent Red Cell Distribution Width 15.0 % Platelet Count 122 TH/MM3 Mean Platelet Volume 9.8 FL Neutrophils (%) (Auto) 50.5 % Lymphocytes (%) (Auto) 39.7 % Monocytes (%) (Auto) 6.6 % Eosinophils (%) (Auto) 3.0 % Basophils (%) (Auto) 0.2 % Neutrophils # (Auto) 3.9 TH/MM3 Lymphocytes # (Auto) 3.1 TH/MM3 Monocytes # (Auto) 0.5 TH/MM3 Eosinophils # (Auto) 0.2 TH/MM3 Basophils # (Auto) 0.0 TH/MM3 CBC Comment DIFF FINAL Differential Comment Prothrombin Time 12.5 SEC Prothromb Time International 1.1 RATIO Ratio Activated Partial 27.3 SEC Thromboplast Time Sodium Level 143 MEQ/L Potassium Level 4.2 MEQ/L Chloride Level 106 MEQ/L Carbon Dioxide Level 31.7 MEQ/L Anion Gap 5 MEQ/L Blood Urea Nitrogen 18 MG/DL Creatinine 1.61 MG/DL Estimat Glomerular Filtration 41 ML/MIN Rate Random Glucose 124 MG/DL Calcium Level 8.1 MG/DL Total Bilirubin 0.5 MG/DL Aspartate Amino Transf 37 U/L (AST/SGOT) Alanine Aminotransferase 15 U/L (ALT/SGPT) Alkaline Phosphatase 76 U/L Total Creatine Kinase 94 U/L Troponin I LESS THAN 0.02 NG/ML Total Protein 6.3 GM/DL Albumin 3.1 GM/DL MDM Medical Decision Making Medical Screen Exam Complete: Yes Emergency Medical Condition: Yes Medical Record Reviewed: Yes Interpretation(s) Last Impressions Chest X-Ray 10/25/16 2113 Signed Impressions: Service Date/Time: Tuesday, October 25, 2016 15:10 - CONCLUSION: Right base infiltrate and effusion. Amrit Nelson MD Carotid Artery Ultrasound 10/25/16 0000 Signed Impressions: Service Date/Time: Tuesday, October 25, 2016 15:40 - CONCLUSION: No evidence of flow-limiting carotid stenosis. Amrit Nelson MD CT of the brain - CONCLUSION: No acute intracranial findings Differential Diagnosis TIA versus CVA versus intracranial hemorrhage versus electrolyte abnormality Narrative Course 86-year-old elderly male presents to the emergency department for evaluation of sudden inability to move his right arm and speak which resolved after 10 minutes. Patient is asymptomatic and denies any complaints at this time. He is currently on Xarelto. EKG shows atrial paced rhythm. CBC, CMP, CK, troponin , PTT, PTT/INR are ordered and pending. CT of the brain, chest x-ray, MRI of the brain and MRA COW, carotid US are ordered and pending. CBC shows no acute abnormality. CMP shows elevated creatinine 1.61. CK is 94. Troponin is less than 0.02. Coags showed no acute abnormality. CT of the brain shows no acute intracranial finding. Chest x-ray shows right base infiltrate and effusion. Clinically, patient has no symptoms consistent with pneumonia. [facility] is paged for admission. Dr. Moran accepted admission. Diagnosis Primary Impression: TIA (transient ischemic attack) Qualified Code: G45.9 - Transient cerebral ischemia, unspecified type Admitting Information Admitting Physician Requests: Observation Vanessa Turpin October 25, 2016 14:55
[2016-10-25 14:57] VITALS: O2SAT 99
[2016-10-25] MEDS ORDERED: SODIUM CHLORIDE 0.9% FLUSH 10 ML FLUSH IVF PRN (15:00)
--- NOTE | 2016-10-25 15:21 | RADRPT ---
EXAM DATE/TIME: 10/25/2016 15:10 [facility] COMPARISON: CHEST SINGLE AP, September 18, 2016, 3:47. INDICATIONS : Syncopal episode. Patient states right arm numbess that started today. MEDICAL HISTORY : Hypertension. SURGICAL HISTORY : Pacemaker. Valve replacement. ENCOUNTER: Initial ACUITY: 1 day PAIN SCORE: 0/10 LOCATION: Bilateral chest FINDINGS: There is mild infiltrate and effusion in the right lung base. Pacemaker device is noted with control pack over the left chest. Left lung remains grossly clear. Cardiac contours are stable accounting for differences in technique and projection. CONCLUSION: Right base infiltrate and effusion. Amrit Nelson MD on October 25, 2016 at 15:17 Board Certified Radiologist. This report was verified electronically.
[2016-10-25 15:23] LABS: AUTOMATED NEUTROPHIL # 3.9 TH/MM3 (1.8-7.7); BASOPHIL % 0.2 % (0.0-2.0); EOSINOPHIL # 0.2 TH/MM3 (0-0.4); HEMATOCRIT 32.5 % (39.0-51.0); HEMO FLAGS DIFF FINAL; LYMPH % 39.7 % (9.0-44.0); LYMPHOCYTE # 3.1 TH/MM3 (1.0-4.8); MEAN CELL VOLUME 85.4 FL (80.0-100.0); MEAN CORPUSCULAR HEMOGLOBIN 27.6 PG (27.0-34.0); MEAN CORPUSCULAR HGB CONC 32.4 % (32.0-36.0); MONO % 6.6 % (0.0-8.0); NEUT % 50.5 % (16.0-70.0); PLATELET COUNT 122 TH/MM3 (150-450); WHITE BLOOD COUNT 7.8 TH/MM3 (4.0-11.0)
[2016-10-25 15:33] LABS: APTT (PATIENT) 27.3 SEC (24.3-30.1); INTERNATIONAL NORMALIZED RATIO 1.1 RATIO; PROTHROMBIN TIME - PATIENT 12.5 SEC (9.8-11.6)
[2016-10-25 15:54] LABS: ALKALINE PHOSPHATASE 76 U/L (45-117); ALT (GPT) 15 U/L (12-78); ANION GAP 5 MEQ/L (5-15); AST (GOT) 37 U/L (15-37); BICARBONATE 31.7 MEQ/L (21.0-32.0); BLOOD UREA NITROGEN 18 MG/DL (7-18); CHLORIDE 106 MEQ/L (98-107); GLOMERULAR FILTRATION RATE 41 ML/MIN (>89); SODIUM (NA) 143 MEQ/L (136-145); TOTAL BILIRUBIN ADULT 0.5 MG/DL (0.2-1.0)
[2016-10-25 16:09] LABS: CREATINE KINASE 94 U/L (39-308); POTASSIUM 4.2 MEQ/L (3.5-5.1)
--- NOTE | 2016-10-25 16:36 | RADRPT ---
EXAM DATE/TIME: 10/25/2016 15:40 [facility] COMPARISON: No previous studies available for comparison. INDICATIONS : Transient ischemic attack. MEDICAL HISTORY : Hypertension. Renal calculi. Measles. BPH. SURGICAL HISTORY : Pacemaker. Rotator cuff, left. ENCOUNTER: Subsequent ACUITY: 1 day PAIN SCORE: 2/10 LOCATION: Bilateral neck PEAK SYSTOLIC VELOCITIES (cm/sec): ICA/CCA RATIO: Right: 1.4 Left: 0.8 ICA: Right: 121 Left: 87 CCA: Right: 89 Left: 110 ECA: Right: 156 Left: 107 VERTEBRAL: Right: 48 antegrade Left: 62 antegrade Elevated flow velocities and ICA/CCA ratios have been found to correlate with increased degrees of vessel stenosis, calculated as percentage of diameter relative to a normal segment of distal ICA/CCA FINDINGS: RIGHT CAROTID: No significant stenosis is visualized. The waveforms are within normal limits. LEFT CAROTID: No significant stenosis is visualized. The waveforms are within normal limits. VERTEBRAL ARTERIES: Antegrade flow is seen in both vertebral arteries. MISCELLANEOUS: None. CONCLUSION: No evidence of flow-limiting carotid stenosis. Amrit Nelson MD on October 25, 2016 at 16:32 Board Certified Radiologist. This report was verified electronically.
[2016-10-25] MEDS ORDERED: ASPI81CH CHEW (17:05)
--- NOTE | 2016-10-25 17:18 | RADRPT ---
EXAM DATE/TIME: 10/25/2016 17:05 [facility] COMPARISON: No previous studies available for comparison. INDICATIONS : Right sided weakness. RADIATION DOSE: 44.52 CTDIvol (mGy) MEDICAL HISTORY : Cardiovascular disease. Hypertension. SURGICAL HISTORY : Pacemaker. ENCOUNTER: Initial ACUITY: 1 day PAIN SCALE: 0/10 LOCATION: cranial TECHNIQUE: Multiple contiguous axial images were obtained of the head. Using automated exposure control and adj ustment of the mA and/or kV according to patient size, radiation dose was kept as low as reasonably a chievable to obtain optimal diagnostic quality images. FINDINGS: The tiny lacunar infarct in the left centrum semiovale which appears old. Brain is elsewhere symmetri c and normal in appearance. No evidence of mass or hemorrhage. There is nothing to suggest acute infa rction. The extracranial structures are benign and intact. CONCLUSION: No acute intracranial findings Amrit Nelson MD on October 25, 2016 at 17:14 Board Certified Radiologist. This report was verified electronically.
[2016-10-25] MEDS ORDERED: SENNOSIDES 8.6 MG TAB PO PRN (18:00)
[2016-10-25] MEDS ORDERED: NALOXONE HCL 0.4 MG/ML AMP IV PRN (18:00)
[2016-10-25] MEDS ORDERED: SODIUM CHLORIDE 0.9% FLUSH 10 ML FLUSH IV FLUSH PRN (18:00)
[2016-10-25] MEDS ORDERED: BISACODYL 10 MG SUPP RECTAL PRN (18:00)
[2016-10-25] MEDS: ASPIRIN 81 MG CHEW TAB CHEW SCH (18:07)
--- NOTE | 2016-10-25 18:22 | EKG ---
Date Performed: 10/25/2016 Time Performed: 14:51:05 PTAGE: 86 years EKG: ELECTRONIC VENTRICULAR PACEMAKER UNDERLYING ATRIAL FIBRILLATION ABNORMAL RHYTHM ECG PREVIOUS TRACING : 09/16/2016 02.38 Compared to previous tracing, heart rate has slowed. DOCTOR: Gordon López Interpretating Date/Time 10/25/2016 18:20:39
--- NOTE | 2016-10-25 19:30 | HHI.PR ---
Objective Objective Results - Vital Signs Date Time Temp Pulse Resp B/P Pulse Ox O2 Delivery O2 Flow Rate FiO2 10/25/16 14:57 99 10/25/16 14:54 98.1 94 20 139/62 94 Result Diagram: 10/25/16 1500 10/25/16 1500 Other Results Laboratory Tests Test 10/25/16 15:00 White Blood Count 7.8 Red Blood Count 3.80 Hemoglobin 10.5 Hematocrit 32.5 Mean Corpuscular Volume 85.4 Mean Corpuscular Hemoglobin 27.6 Mean Corpuscular Hemoglobin 32.4 Concent Red Cell Distribution Width 15.0 Platelet Count 122 Mean Platelet Volume 9.8 Neutrophils (%) (Auto) 50.5 Lymphocytes (%) (Auto) 39.7 Monocytes (%) (Auto) 6.6 Eosinophils (%) (Auto) 3.0 Basophils (%) (Auto) 0.2 Neutrophils # (Auto) 3.9 Lymphocytes # (Auto) 3.1 Monocytes # (Auto) 0.5 Eosinophils # (Auto) 0.2 Basophils # (Auto) 0.0 CBC Comment DIFF FINAL Differential Comment Prothrombin Time 12.5 Prothromb Time International 1.1 Ratio Activated Partial 27.3 Thromboplast Time Sodium Level 143 Potassium Level 4.2 Chloride Level 106 Carbon Dioxide Level 31.7 Anion Gap 5 Blood Urea Nitrogen 18 Creatinine 1.61 Estimat Glomerular Filtration 41 Rate Random Glucose 124 Calcium Level 8.1 Total Bilirubin 0.5 Aspartate Amino Transf 37 (AST/SGOT) Alanine Aminotransferase 15 (ALT/SGPT) Alkaline Phosphatase 76 Total Creatine Kinase 94 Troponin I LESS THAN 0.02 Total Protein 6.3 Albumin 3.1 Physical Exam Physical Exam PT is seen & Examined d/w PT d/w ruddy see Orders see H&P will f/u Jordan Hutchinson MD October 25, 2016 19:30
[2016-10-25 21:05] VITALS: BP 153/69; PULSE 69; RESP 15; TEMP 96.7; O2SAT 98
[2016-10-25] MEDS: SODIUM CHLORIDE 0.9% FLUSH 10 ML FLUSH IV FLUSH SCH (21:30)
[2016-10-25] MEDS: BUMETANIDE 1 MG TAB PO SCH (21:30)
[2016-10-25] MEDS: TAMSULOSIN HCL 0.4 MG CAP PO SCH (21:30)
[2016-10-25] MEDS: POTASSIUM CHLORIDE 20 MEQ CONTROLLED RELEASE TAB PO SCH (21:30)
[2016-10-25] MEDS: METOPROLOL TARTRATE 25 MG TAB PO SCH (21:30)
[2016-10-26] VITALS (8 sets, daily range): BP systolic 105–158; BP diastolic 55–70; PULSE 60–72; RESP 16–20; TEMP 97.1–98; O2SAT 94–100
[2016-10-26 05:46] LABS: AUTOMATED NEUTROPHIL # 3.8 TH/MM3 (1.8-7.7); BASOPHIL % 0.2 % (0.0-2.0); EOSINOPHIL # 0.2 TH/MM3 (0-0.4); EOSINOPHIL % 2.7 % (0.0-4.0); HEMATOCRIT 30.4 % (39.0-51.0); LYMPH % 45.3 % (9.0-44.0); LYMPHOCYTE # 3.8 TH/MM3 (1.0-4.8); MEAN CELL VOLUME 83.3 FL (80.0-100.0); MEAN CORPUSCULAR HGB CONC 33.6 % (32.0-36.0); MONO % 5.9 % (0.0-8.0); NEUT % 45.9 % (16.0-70.0); PLATELET COUNT 114 TH/MM3 (150-450); RED BLOOD COUNT 3.64 MIL/MM3 (4.50-5.90); RED CELL DISTRIBUTION WIDTH 14.9 % (11.6-17.2); WHITE BLOOD COUNT 8.3 TH/MM3 (4.0-11.0)
[2016-10-26 05:52] LABS: HEMO FLAGS AUTO DIFF
[2016-10-26 06:15] LABS: BICARBONATE 31.6 MEQ/L (21.0-32.0); POTASSIUM 3.6 MEQ/L (3.5-5.1)
[2016-10-26 07:14] LABS: PLATELET ESTIMATE SMEAR LOW (NORMAL); PLATELET MORPHOLOGY NORMAL (NORMAL); SCAN/DIFF AUTO DIFF CONFIRMED
[2016-10-26] MEDS: RIVAROXABAN 15 MG TAB PO SCH (08:18)
[2016-10-26] MEDS: ASPIRIN 81 MG CHEW TAB CHEW SCH (08:18)
[2016-10-26] MEDS: METOPROLOL TARTRATE 25 MG TAB PO SCH ×2 (08:18→20:36)
[2016-10-26] MEDS: POTASSIUM CHLORIDE 20 MEQ CONTROLLED RELEASE TAB PO SCH ×2 (08:18→20:36)
[2016-10-26] MEDS: TAMSULOSIN HCL 0.4 MG CAP PO SCH ×2 (08:18→20:36)
[2016-10-26] MEDS: BUMETANIDE 1 MG TAB PO SCH ×2 (08:18→20:36)
[2016-10-26] MEDS: MULTIVITAMINS/MINERALS THERAPEUTIC TAB PO SCH (08:18)
[2016-10-26] MEDS: SODIUM CHLORIDE 0.9% FLUSH 10 ML FLUSH IV FLUSH SCH ×2 (08:19→20:36)
[2016-10-26] MEDS: CHOLECALCIFEROL (VIT D3) 1000 UNIT TAB PO SCH (08:19)
[2016-10-26] MEDS: CYANOCOBALAMIN 1,000 MCG TAB PO SCH (08:19)
--- NOTE | 2016-10-26 08:23 | HHI.PR ---
Objective Objective Results - Vital Signs Date Time Temp Pulse Resp B/P Pulse Ox O2 Delivery O2 Flow Rate FiO2 10/26/16 08:13 97.9 69 17 158/70 95 10/26/16 05:54 63 10/26/16 04:00 97.6 72 16 136/63 94 10/26/16 00:00 97.1 70 16 150/66 94 10/25/16 21:05 96.7 69 15 153/69 98 10/25/16 14:57 99 10/25/16 14:54 98.1 94 20 139/62 94 Result Diagram: 10/26/1651710/26/16517 Physical Exam Physical Exam PHYSICAL EXAMINATION GENERAL: This is a well-developed, well-nourished male who appears to be in no acute distress. He is alert and awake, []. HEAD: Normocephalic without any lesion or mass noted. Facial features appear symmetric. OROPHARYNGEAL: Oropharynx without erythema or edema. NECK: Supple. No nuchal rigidity or lymphadenopathy. Trachea midline without deviation. CARDIAC: Regular rhythm, regular rate, S1 and S2 are heard. Murmur []; no gallops or rubs. LUNGS: Clear to auscultation bilaterally. [] wheeze, [] rhonchi or [] rale. No use of accessory muscles on inspiration or expiration. ABDOMEN: Soft, nontender, no organomegaly or masses. Bowel sounds are heard in all four quadrants. No rebound. No guarding. EXTREMITIES: [] edema. Pulses equal bilateral. [] cyanosis. NEUROLOGICAL: Patient mood and affect appropriate. No focal deficit SKIN:Warm and moist Tati Kwon October 26, 2016 08:23
--- NOTE | 2016-10-26 08:36 | MH ---
cc: NAHOMI HUTCHINSON MD DATE OF ADMISSION 10/25/2016 DATE OF 1930 CHIEF COMPLAINT Right-sided weakness. Travel in the last 30 days, none. HISTORY OF PRESENT ILLNESS This is a very pleasant 86-year-old white male who had been in his usual state of health up until approximately 02:00 p.m. this afternoon. He had an acute onset of inability to move or raise his right arm. He noted that his speech was garbled and he called out for his . When the patient's entered the room where he was, she also stated that his speech was garbled and she picked up the phone and called 9-1-1. About the time that EMS got there to evaluate, the patient's symptoms were completely gone. He was moving his right arm and speaking very clearly. He was brought into the emergency room for further evaluation. At the time of the incident the patient denied any chest pain. No shortness of breath. No headache. No nausea. No vomiting. He has had no problems with his appetite and had been eating well. The patient denied any abdominal pain. It is noted in the record the patient had valve replacement surgery in August and does have a history of the pacemaker. Currently the patient is sitting on the side of the bed eating supper. He has no problems with dysphasia. No symptoms of dysuria. PAST MEDICAL HISTORY Includes: 1. Cardiovascular disease. 2. Enlarged prostate disease. 3. Kidney stones. 4. Dysrhythmias. 5. Valvular disease. 6. History of shortness of breath. SURGERIES 1. AICD and pacemaker. 2. Bilateral cataracts. 3. Recent aortic valve replacement surgery. ALLERGIES MRI PRECAUTIONS WITH PACEMAKER. MEDICATIONS Active: 1. Potassium. 2. Bumex. 3. Vitamins. 4. Metoprolol. 5. Aspirin. 6. Xarelto. 7. Vitamin D. 8. Vitamin B12. 9. Tamsulosin. SOCIAL HISTORY The patient is currently , lives at home with his . No alcohol. No tobacco. No illicit drugs. REVIEW OF SYSTEMS A 12-point review was obtained. Positives noted are acute onset of right arm weakness with garbled speech, now resolved. Other positives noted are some shortness of breath on occasion. Currently eupneic at rest. Other systems negative or unremarkable. PHYSICAL EXAMINATION VITAL SIGNS: Temperature is 98.1, pulse 94, respirations 20, blood pressure 139/62, O2 sat 94% and up to 99% now on room air. GENERAL: Mildly obese white male looks to be his stated age resting in bed. His skin is pale but he is alert, oriented and with good conversation. HEENT: Atraumatic, normocephalic. Pupils equal, round, reactive to light and accommodation at 3. Mucous membranes are pale pink and moist. NECK: Supple. CARDIOVASCULAR: S1-S2, probable soft systolic murmur at the left sternal border. Mild aortic click. No pedal edema. CARISA hose on. Pulses are intact. RESPIRATORY: Essentially clear lungs to auscultation anteriorly and posteriorly in the upper harp. He does have decreased breath sounds bilaterally in his bases with special attention to the right being greater than left. GASTROINTESTINAL: Abdomen is round, soft, nontender, nondistended. MUSCULOSKELETAL: He can move all extremities with purpose. He has equal hand channel marketing manager. NEUROLOGIC: He is alert, oriented. A fair historian. Speech is clear and normal. PSYCHOLOGIC: Appropriate mood and affect. LABORATORY DATA Diagnostic data, WBC count 7.88, RBC 3.8, hemoglobin 10.5, hematocrit 32.5, platelet count 122. Coags: PT/INR 1.1 with APTT a PT 27.3. Chemistry sodium 143, potassium 4.2, chloride 106, carbon dioxide 31.7, anion gap 5, BUN is 18, creatinine 1.61, GFR 41, random glucose 124, calcium 8.1. Troponin is less than 0.02. albumin is 3.1. IMAGING STUDIES Shows chest x-ray to have a right base infiltrate and effusion. Head CT scan no acute intracranial findings. Carotid ultrasound no evidence of flow limiting carotid stenosis. ASSESSMENT/PLAN 1. Transient ischemic attack. 2. Acute renal insufficiency with a history of chronic kidney disease. 3. Hypertension. 4. History of cardiovascular disease. 5. Thrombocytopenia, mild. 6. Shortness of breath. 7. Anemia. 8. Mild protein calorie malnutrition. Our plan is to monitor vital signs and neurological checks q.4h. Cardiac monitoring, continuous. Heart healthy diet. Reconcile his medications. DVT prophylaxis with SCDs and Xarelto which he has been on for approximately a year due to his cardiac issues. In the emergency room labs were drawn. MRI, MRA is pending. Ultrasound of carotids were normal. We are gathering his status so we can consult neurology for their expert opinion. We will check a BMP in the morning as well as other labs. We will also consult nutrition for their expert opinion for his protein needs. The patient is full code, full aggressive care. We will follow. Dictated by: MORGAN Guzman MD [place] David/KK /6:53 PM /8:34 AM PT is seen & Examined d/w PT d/w ruddy see Orders see H&P will f/u Nahomi Hutchinson MD October 25, 2016 19:30 MTDD
[2016-10-26 14:58] LABS: HDL CHOLESTEROL 39.1 MG/DL (40.0-60.0)
--- NOTE | 2016-10-26 16:12 | MB ---
cc: JOSE HICKS M.D. DATE OF : 1930, 86 year-old DATE OF CONSULTATION: 10/26/2016 REASON FOR CONSULTATION: TIA. HISTORY OF PRESENT ILLNESS: The patient is a pleasant 86-year-old man who yesterday afternoon about 2 o'clock started having some acute trouble raising his right arm, garbled speech, lasting for maybe 10 minutes. His noted it, called 911. By the time EMS arrived it was gone, back to baseline, observed him coming back from the bathroom with his walking as he usually does. The patient aortic valve replacement in August. He does have a pacemaker. He also has a recent DVT on Xarelto. He denies any chest pain, shortness of breath, weakness in the arms. He has old left rotator cuff issue and that is not a new concern for him. PAST MEDICAL HISTORY: 1. Cardiac disease. 2. BPH. 3. Kidney stones 4. Dysrhythmia. 5. Valvular disease. PAST SURGICAL HISTORY: 1. AICD pacemaker. 2. Cataracts. 3. Recent aortic valve replacement surgery. ALLERGIES: None. MRI PRECAUTIONS. He states his pacemaker is not MRI compatible. HOME MEDICATIONS: 1. Potassium. 2. Bumex 3. Vitamin D 4. B12 5. Xarelto 6. Aspirin 7. Tamsulosin. SOCIAL HISTORY: , lives at home with his . No alcohol, no tobacco. PHYSICAL EXAMINATION: VITAL SIGNS: Temperature is 98, pulse 69, respiratory rate 17, blood pressure 105/55. Neck: Neck is supple. No carotid bruits. Heart: Heart is regular. Neurologic: He is awake, alert. He is oriented, fluent. No dysarthria. Pupils reactive. Face symmetrical. Tongue midline. Motor: I do not appreciate any significant weakness. Rose Grower are symmetrical. He does have some weakness at the rotator cuff on the left shoulder which is old. Sensory is normal. DTRs are 1 to 2+. Gait is slightly flexed forward, cautious, small steps, but he is in socks. LABORATORY DATA: Reviewed. Hemoglobin 10.2, platelet count 114,000. Coag panel, PT 12.5. Chemistry: Creatinine 1.51, GFR 44, glucose 97, calcium 7.8. IMAGING STUDIES: CT head, no acute findings. No bleed. Carotid ultrasound, no flow-limiting stenosis. Chest x-ray: Right base infiltrate and effusion. IMPRESSION 86-year-old man what appears to be a TIA-like event with a history of coronary artery disease, recent aortic valve replacement, DVT. PLAN Continue Xarelto. If he is in fact not taking a baby aspirin, add baby aspirin to his regimen. He states he had a recent echo with Dr. Burrell. Unfortunately I cannot do an MRI since he has a pacemaker. I do not think an MRA at this point is of high yield and his GFR is low, so that would also be an issue, certainly. He seems to be back at baseline. His platelets are a bit low as well, so I am a little bit less inclined to increase his aspirin to two baby aspirins. He states he is compliant with his Xarelto. Will get a lipid panel and send him home on a Holter monitor if stable. Will have him follow up with Dr. Burrell, primary care and myself as an outpatient. MD BASHIR Astudillo/VALORIE /1:49 PM /3:46 PM
[2016-10-27 00:12] VITALS: BP 142/62; PULSE 69; RESP 20; TEMP 98.8; O2SAT 94
[2016-10-27 04:06] VITALS: BP 130/59; PULSE 58; RESP 20; TEMP 98.7; O2SAT 94
--- NOTE | 2016-10-27 08:05 | HHI.PR ---
Subjective Subjective Remarks sitting up in chair no cp no sob ambulating in room no fever anxious to go home Review of Systems Constitutional Constitutional Remarks 12 point ROS completed, negative except as noted above Vitals/Results Vital Signs Vital Signs Date Time Temp Pulse Resp B/P Pulse Ox O2 Delivery O2 Flow Rate FiO2 10/27/16 04:06 98.7 58 20 130/59 94 10/27/16 00:12 98.8 69 20 142/62 94 10/26/16 22:53 60 10/26/16 19:39 97.7 69 20 111/64 95 10/26/16 15:35 98.0 69 17 125/58 100 10/26/16 12:08 98.0 69 17 105/55 95 10/26/16 08:13 97.9 69 17 158/70 95 CBC/BMP: 10/26/16 0518 10/26/16 0518 Physical Exam General General Appearance: Well Developed, Well Nourished, No Acute Distress, Comfortable Eyes Eye Exam: Pupils Equal, Pupils Reactive Ears & Nose Ears & Nose Exam: Nasal Mucosa [place] Throat Throat Exam: Oral Mucosa [place] & Moist Neck Neck Exam: Neck Supple, Trachea Midline Pulmonary Resp Exam: Diminished Breath Sounds Cardiology CV Exam: Regular, Good Perfusion Gastrointestinal/Abdomen GI Exam: Soft, Non-Tender, Bowel Sounds Present, Non-Distended Musculoskeletal MS Exam: Joints Intact Integumentary Skin Exam: Warm, Dry Extremeties Extremities Exam: No Edema, Pedal Pulses Palpable Neurologic Neuro Exam: Alert, Awake, Oriented, Speech Clear, Moving All Extremities, No Focal Deficits Psychiatric Psych Exam: Appropriate Responses VTE Prophylaxis VTE Prophylaxis Device: TEDs VTE Remarks Xarelto Assessment/Plan Assessment/Plan 1. Transient ischemic attack. 2. Acute renal insufficiency with a history of chronic kidney disease. 3. Hypertension. 4. History of cardiovascular disease. 5. Thrombocytopenia, mild. 6. Shortness of breath. 7. Anemia. 8. Mild protein calorie malnutrition. 9. Right pleural effusion, ? infiltrate Plan: neuro checks appreciate neurology, recommends adding baby ASA continue Xarelto work up in progress Echo pending CUS, no significant stenosis Acute kidney insufficiency creat stable, coming down CAD, recent TAVR, aortic stenosis BNP 413, denies any SOB, doesn't appear fluid overloaded continue Bumex f/u echo report Anemia, ? CKD HH stable follow platelets, 114 today PT eval today CM for dc planning Poss dc this afternoon after work up completed D/W RN D/W Dr. Hutchinson D/W pt. This pt. was seen by myself and Dr. Hutchinson, this note is written on his behalf. Saray Campos October 27, 2016 08:05
[2016-10-27 08:18] VITALS: BP 110/70; PULSE 69; RESP 21; TEMP 98.4; O2SAT 98
--- NOTE | 2016-10-27 08:56 | HHI.FF ---
Face to Face Verification Diagnosis: (1) TIA (transient ischemic attack) Physical Therapy Order: Evaluate and Treat Home Health Nursing Order: Medical education Nursing assessment with vital signs I have seen patient Gordon Abdi on 10/27/16. My clinical findings support the need for the requested home health care services because: Patient has SOB Impaired cognition/judgement I certify that my clinical findings support that this patient is homebound because: Need for psychosocial assistance Saray Campos PARKING METER COLLECTOR October 27, 2016 08:56
[2016-10-27] MEDS: METOPROLOL TARTRATE 25 MG TAB PO SCH (09:00)
[2016-10-27 10:00] VITALS: PULSE 69
[2016-10-27] MEDS: MULTIVITAMINS/MINERALS THERAPEUTIC TAB PO SCH (10:04)
[2016-10-27] MEDS: BUMETANIDE 1 MG TAB PO SCH (10:04)
[2016-10-27] MEDS: RIVAROXABAN 15 MG TAB PO SCH (10:05)
[2016-10-27] MEDS: CHOLECALCIFEROL (VIT D3) 1000 UNIT TAB PO SCH (10:05)
[2016-10-27] MEDS: ASPIRIN 81 MG CHEW TAB CHEW SCH (10:05)
[2016-10-27] MEDS: CYANOCOBALAMIN 1,000 MCG TAB PO SCH (10:05)
[2016-10-27] MEDS: POTASSIUM CHLORIDE 20 MEQ CONTROLLED RELEASE TAB PO SCH (10:05)
[2016-10-27] MEDS: TAMSULOSIN HCL 0.4 MG CAP PO SCH (10:06)
[2016-10-27] MEDS: SODIUM CHLORIDE 0.9% FLUSH 10 ML FLUSH IV FLUSH SCH (10:07)
[2016-10-27 11:23] VITALS: BP 113/56; PULSE 69; RESP 21; TEMP 98.4; O2SAT 96
--- NOTE | 2016-10-27 11:57 | EC ---
Study Study Date:10/27/2016 STUDY CONCLUSIONS SUMMARY - Procedure narrative: Transthoracic echocardiography. Image quality wasvery poor. Scanning was performed from the parasternal, apical, and subcostal acoustic windows. - Left ventricle: The cavity size was normal. Wall thickness was normal. Systolic function was normal. The estimated ejection fraction was in the range of 50% to 55%. Images were inadequate for LV wall motion assessment. - Aortic valve: Poorly visualized. - Mitral valve: Mildly calcified annulus. Trace regurgitation. - Tricuspid valve: Trace regurgitation. - Pulmonary arteries: PA peak pressure: 36mm Hg (S). If LV function is below 40, please consider prescribing an ACEI or ARB or document rationale for non-use. PROCEDURE DATA STUDY STATUS: Elective. Procedure: Transthoracic echocardiography. Image quality wasvery poor. Scanning was performed from the parasternal, apical, and subcostal acoustic windows. Study completion: The patient tolerated the procedure well. Transthoracic echocardiography. M-mode, complete 2D, complete spectral Doppler, and color Doppler. Height: Height: 70in. Weight: Weight: 197.6lb. Body mass index: BMI: 28.4kg/m^2. Body surface area: BSA: 2.08m^2. Patient status: Inpatient. CARDIAC ANATOMY LEFT VENTRICLE: The cavity size was normal. Wall thickness was normal. Systolic function was normal. The estimated ejection fraction was in the range of 50% to 55%. Images were inadequate for LV wall motion assessment. AORTIC VALVE: Poorly visualized. Doppler: Transvalvular velocity was within the normal range. There was no stenosis. No regurgitation. Valve area: 2.93cm^2 (Vmax). Indexed valve area: 1.41cm^2/m^2 (Vmax). AORTA: Aortic root: The aortic root was normal in size. MITRAL VALVE: Mildly calcified annulus. Doppler: Transvalvular velocity was within the normal range. There was no evidence for stenosis. Trace regurgitation. Peak gradient: 4mm Hg (D). LEFT ATRIUM: The atrium was normal in size. RIGHT VENTRICLE: The cavity size was normal. Wall thickness was normal. PULMONIC VALVE: Doppler: Transvalvular velocity was within the normal range. There was no evidence for stenosis. No regurgitation. TRICUSPID VALVE: Structurally normal valve. Doppler: Transvalvular velocity was within the normal range. Trace regurgitation. PULMONARY ARTERY: The main pulmonary artery was normal-sized. Systolic pressure was within the normal range. RIGHT ATRIUM: The atrium was normal in size. PERICARDIUM: There was no pericardial effusion. SYSTEMIC VEINS: Inferior vena cava: The vessel was normal in size. Patient weight: 197.6lb _Ejection fraction:_ 65-75% _Fractional shortening:_ 32% up to 5Kg 5-11.5Kg 11.6-22.9Kg 23-45Kg 45-57Kg Aortic Root 7-13 <17 13-22 17-27 17-27 LA diam 6-13 <23 24-38 33-47 37-40 RVID 10-17 7-15 7-15 7-18 8-17 LVIDd 12-22 <32 24-38 33-47 37-40 LVPW 2-4 3-6 5-7 6-8 7-8 IVS 2-4 3-6 5-7 6-8 7-8 BASIC MEASUREMENTS ADULT NORMAL Left ventricle LV internal dimension, ED, chordal 47.7 mm 43-52 level, PLAX LV internal dimension, ES, chordal 35.6 mm 23-38 level, PLAX Fractional shortening, chordal level, *25 % >29 PLAX LV posterior wall thickness, ED 12 mm IVS/LVPW ratio, ED 0.99 <1.3 Ventricular septum Septal thickness, ED 11.9 mm Aortic valve Leaflet separation 21 mm 15-26 Left atrium Anterior-posterior dimension 47 mm Anterior-posterior dimension index *2.26 cm/m^2 <2.2 BASIC MEASUREMENTS ADULT NORMAL Aortic valve Leaflet separation 21 mm 15-26 Aorta Root diameter, ED 33 mm 20-37 DOPPLER MEASUREMENTS ADULT NORMAL Main pulmonary artery Pressure, S *36 mm Hg =30 Aortic valve Peak velocity, S 107 cm/s Valve area, Vmax 2.93 cm^2 Valve area index, Vmax 1.41 cm^2/m^2 Mitral valve Peak E-wave velocity 96.3 cm/s Peak A-wave velocity 122 cm/s Deceleration time 211 ms 150-230 Peak gradient, D 4 mm Hg Peak E/A ratio 0.8 Maximal regurgitant velocity 411 cm/s Tricuspid valve Regurgitant peak velocity 252 cm/s Peak RV-RA gradient, S 25 mm Hg Maximal regurgitant velocity 252 cm/s Systemic veins Estimated CVP 10 mm Hg Right ventricle RV pressure, S *39 mm Hg <30 Pulmonic valve Peak velocity, S 84.2 cm/s LEGEND: Mean values are shown as u=mean value. Asterisk (*) pacheco values outside specified normal range. Prepared and signed by Gordon López [id number]
--- NOTE | 2016-10-27 15:22 | HHI.DS ---
Discharge Summary Admission Date October 25, 2016 at 17:44 Discharge Date: October 27, 2016 Admitting Diagnosis TIA (1) TIA (transient ischemic attack) (2) S/P AVR (aortic valve replacement) (3) aflutter (4) Thrombocytopenia (5) Hypertension (6) Coronary artery disease CBC/BMP: 10/26/1618 10/26/16 0518 Significant Findings Laboratory Tests Test 10/25/16 10/26/16 10/26/16 15:00 05:01 05:18 Red Blood Count 3.80 MIL/MM3 3.64 MIL/MM3 (4.50-5.90) (4.50-5.90) Hemoglobin 10.5 GM/DL 10.2 GM/DL (13.0-17.0) (13.0-17.0) Hematocrit 32.5 % 30.4 % (39.0-51.0) (39.0-51.0) Platelet Count 122 TH/MM3 114 TH/MM3 (150-450) (150-450) Prothrombin Time 12.5 SEC (9.8-11.6) Creatinine 1.61 MG/DL 1.51 MG/DL (0.60-1.30) (0.60-1.30) Estimat Glomerular Filtration 41 ML/MIN (>89) 44 ML/MIN (>89) Rate Random Glucose 124 MG/DL (74-106) Calcium Level 8.1 MG/DL 7.8 MG/DL (8.5-10.1) (8.5-10.1) Troponin I LESS THAN 0.02 NG/ML (0.02-0.05) Total Protein 6.3 GM/DL (6.4-8.2) Albumin 3.1 GM/DL (3.4-5.0) B-Type Natriuretic Peptide 413 PG/ML (0-100) Lymphocytes (%) (Auto) 45.3 % (9.0-44.0) Platelet Estimate LOW (NORMAL) Cholesterol Level 91 MG/DL (120-200) HDL Cholesterol 39.1 MG/DL (40.0-60.0) Imaging Last Impressions Head CT 10/25/16 1453 Signed Impressions: Service Date/Time: Tuesday, October 25, 2016 17:05 - CONCLUSION: No acute intracranial findings Amrit Nelson MD Chest X-Ray 10/25/16 1453 Signed Impressions: Service Date/Time: Tuesday, October 25, 2016 15:10 - CONCLUSION: Right base infiltrate and effusion. Amrit Nelson MD Carotid Artery Ultrasound 10/25/16 0000 Signed Impressions: Service Date/Time: Tuesday, October 25, 2016 15:40 - CONCLUSION: No evidence of flow-limiting carotid stenosis. Amrit Nelson MD Hospital Course This is a very pleasant 86-year-old white male who had been in his usual state of health up until approximately 02:00 p.m. 2 days ago. He had an acute onset of inability to move or raise his right arm. He noted that his speech was garbled and he called out for his . When the patient's entered the room where he was, she also stated that his speech was garbled and she picked up the phone and called . About the time that EMS got there to evaluate, the patient's symptoms were completely gone. He was moving his right arm and speaking very clearly. He was brought into the emergency room for further evaluation. At the time of the incident the patient denied any chest pain. No shortness of breath. No headache. No nausea. No vomiting. He has had no problems with his appetite and had been eating well. The patient denied any abdominal pain. It is noted in the record the patient had valve replacement surgery in August and does have a history of the pacemaker. Patient was evaluated in the emergency room LABORATORY DATA Diagnostic data, WBC count 7.88, RBC 3.8, hemoglobin 10.5, hematocrit 32.5, platelet count 122. Coags: PT/INR 1.1 with APTT a PT 27.3. Chemistry sodium 143, potassium 4.2, chloride 106, carbon dioxide 31.7, anion gap 5, BUN is 18, creatinine 1.61, GFR 41, random glucose 124, calcium 8.1. Troponin is less than 0.02. albumin is 3.1. IMAGING STUDIES Shows chest x-ray to have a right base infiltrate and effusion. Head CT scan no acute intracranial findings. Carotid ultrasound no evidence of flow limiting carotid stenosis. Patient was admitted for further evaluation: 1. Transient ischemic attack. 2. Acute renal insufficiency with a history of chronic kidney disease. 3. Hypertension. 4. History of cardiovascular disease. 5. Thrombocytopenia, mild. 6. Shortness of breath. 7. Anemia. 8. Mild protein calorie malnutrition. 9. Right pleural effusion, ? infiltrate During the course of the hospitalization, the following events took place: Patient was admitted under observation, neurology was consulted for evaluation Neuro checks were ordered Patient was hydrated Patient was on Xarelto, baby aspirin was added Neuro workup was completed. Echo was done, EF was normal. CUS, no significant stenosis Per neurology, patient likely had TIA. Was also noted with Acute kidney insufficiency Was hydrated creat stable, coming down Patient with history of CAD, recent TAVR, aortic stenosis BNP 413, denied any SOB, did not appear fluid overloaded continued Bumex f/u echo report Anemia, ? CKD HH stable No active bleeding History of thrombocytopenia, platelets were monitor. No active bleeding Physical therapy was consulted Case management was consulted for discharge planning Patient's symptoms did not reoccur. Patient was discharged home in stable condition Pt Condition on Discharge: Stable Discharge Disposition: Discharge Home Discharge Instructions DIET: Follow Instructions for: Heart Healthy Diet Fluid Restrictions: 1500cc/day Activities you can perform: Regular-No Restrictions Follow up Referrals: Cardiology - 1 Month Neurology - 2 Weeks PCP Follow-up - 1 Week Continued Medications: Aspirin (Aspirin) 81 Mg Chew 81 MG CHEW DAILY Ref 0 TAB Bumetanide (Bumex) 1 Mg Tab 1 MG PO BID take one tab twice a day x 7 days, then once a day, take with potassium edema #35 Ref 1 TAB Cholecalciferol (Vitamin D) 1,000 Unit Tab 1000 UNITS PO DAILY Nutritional Supplement Ref 0 BOTTLE Cyanocobalamin (Vitamin B-12) 1,000 Mcg Subl 1000 MCG SL DAILY Nutritional Supplement Ref 0 TAB.SL Metoprolol Tartrate (Metoprolol Tartrate) 25 Mg Tab 25 MG PO BID Blood Pressure Management #60 Ref 2 TAB Multiple Vitamins W/ Minerals (Thera M Plus) 1 Tab 1 TAB PO DAILY multi vitamin #30 TAB Potassium Chloride ER (Potassium Chloride ER) 20 Meq Tab 20 MEQ PO BID take one tab twice a day x 7 days, then take once a day / take with bumex Electrolyte Replacement #35 Ref 1 TAB Rivaroxaban (Xarelto) 15 Mg Tab 15 MG PO DAILY Blood Clot Prevention Ref 0 TAB Tamsulosin (Tamsulosin) 0.4 Mg Cap 0.4 MG PO BID Manage Prostate Problems Ref 0 CAP Saray Campos October 27, 2016 15:22 Acute kidney insufficiency creat stable, coming down CAD, recent TAVR, aortic stenosis BNP 413, denies any SOB, doesn't appear fluid overloaded continue Bumex f/u echo report Anemia, ? CKD HH stable follow platelets, 114 today PT eval today CM for dc planning Poss dc this afternoon after work up completed D/W RN D/W Dr. Hutchinson D/W pt. This pt. was seen by myself and Dr. Hutchinson, this note is written on his behalf. Pt Condition on Discharge: Stable Discharge Disposition: Discharge Home Discharge Instructions DIET: Follow Instructions for: Heart Healthy Diet Fluid Restrictions: 1500cc/day Activities you can perform: Regular-No Restrictions Saray Campos October 27, 2016 15:22
== END 2016-10-27 13:13 | disposition home or self-care (01) ==
LOC: NEPC 14:09 → NEDA 17:44 → NEPHCDU 20:35
PROVIDERS: ADMIT Specialist; ATTEND Specialist
DX: G45.9 Transient cerebral ischemic attack, unspecified (principal); Z95.0 Presence of cardiac pacemaker; N40.0 Benign prostatic hyperplasia without lower urinary tract symptoms; N18.9 Chronic kidney disease, unspecified; I12.9 Hypertensive chronic kidney disease with stage 1 through stage 4 chronic kidney disease, or unspecified chronic kidney disease; Z79.01 Long term (current) use of anticoagulants; Z79.899 Other long term (current) drug therapy; R79.89 Other specified abnormal findings of blood chemistry; Z95.2 Presence of prosthetic heart valve; R06.02 Shortness of breath; D69.6 Thrombocytopenia, unspecified; D64.9 Anemia, unspecified; E44.1 Mild protein-calorie malnutrition; I25.10 Atherosclerotic heart disease of native coronary artery without angina pectoris; Z86.718 Personal history of other venous thrombosis and embolism
CPT/HCPCS: 70450; 71010; 80048; 80053; 80061; 82550; 83880; 84484; 85025; 85610; 85730; 93005; 93306; 93880; 99285; G0378